=== PATIENT | female | born 1940 | race Caucasian/White ===

== ENCOUNTER 2017-05-27 06:00 | Emergency (ER) | payer MEDICARE ==
[2017-05-27 06:07] VITALS: BP 134/63; PULSE 62; RESP 18; TEMP 97
--- NOTE | 2017-05-27 06:27 | ED ---
General Adult HPI - General Chief complaint: ENT Stated complaint: ENT/Cough Time Seen by Provider: 05/27/17 06:17 Source: patient, RN notes reviewed Mode of arrival: ambulatory Limitations: no limitations - History of Present Illness Initial comments: Patient is a pleasant 76-year-old female presenting to the emergency department with congestion and cough. Symptoms have been present for close to week. Patient has nasal congestion and occasional drainage. Patient has had cough. No difficulty breathing. Patient does have sore throat. Patient has had some drainage from the left eye and noticed redness. No eye pain or visual change. - Related Data Home Medications Medication Instructions Recorded Confirmed Cranberry Fruit Extract [Cranberry] 1,000 mg PO DAILY 04/12/16 05/27/17 DULoxetine HCL [Cymbalta] 60 mg PO DAILY 04/12/16 05/27/17 Docusate [Colace] 100 mg PO DAILY PRN 04/12/16 05/27/17 Flaxseed Oil [[place]-3 Flaxseed Oil] 1,000 mg PO BID 04/12/16 05/27/17 Omeprazole [PriLOSEC] 20 mg PO BID 04/12/16 05/27/17 Pravastatin Sodium [Pravachol] 20 mg PO DAILY 04/12/16 05/27/17 lamoTRIgine [LaMICtal] 25 mg PO BID 04/12/16 05/27/17 Ascorbic Acid [Vitamin C] 500 mg PO DAILY 05/19/16 05/27/17 Biotin 5 mg PO BID 05/19/16 05/27/17 Calcium Carbonate/Vitamin D3 1 tab PO BID 05/19/16 05/27/17 [Calcium 600-Vit D3 400 Caplet] Cetirizine HCl [Zyrtec] 10 mg PO DAILY 05/19/16 05/27/17 Green Tea 500mg Capsule 500 mg PO DAILY 05/19/16 05/27/17 LORazepam [Ativan] 0.5 mg PO HS PRN 05/19/16 05/27/17 Levothyroxine Sodium 50 mcg PO DAILY 05/19/16 05/27/17 Melatonin 5 mg PO HS 05/19/16 05/27/17 Methylcellulose 500mg Tab(Citrucel) 500 - 1,000 mg PO DAILY PRN 05/19/16 Nitroglycerin Sl Tabs [Nitrostat] 0.4 mg PO Q5M PRN MDD 0.12 MG 05/19/16 Vitamin B Complex 1 cap PO DAILY 05/19/16 05/27/17 Vitamin E 200 unit PO DAILY 05/19/16 05/27/17 Previous Rx's Medication Instructions Recorded Aspirin 325 mg PO DAILY #30 tab 04/20/16 Furosemide [Lasix] 20 mg PO DAILY #30 tab 04/20/16 Lisinopril [Zestril] 10 mg PO DAILY #30 tab 04/20/16 Metoprolol Tartrate [Lopressor] 25 mg PO BID #60 tab 04/20/16 Acetaminophen Tab [Tylenol] 650 mg PO Q6HR PRN #0 tab 05/21/16 Azithromycin [Zithromax Z-pack] 250 mg PO DIRECTED #6 tab 05/27/17 Tobramycin [Tobrex 0.3% Ophth Soln] 1 drops LEFT EYE QID #10 ml 05/27/17 Allergies Allergy/AdvReac Type Severity Reaction Status Date / Time morphine AdvReac Chest Pain Verified 05/20/16 02:37 Review of Systems ROS Statement: Those systems with pertinent positive or pertinent negative responses have been documented in the HPI. ROS Other: All systems not noted in ROS Statement are negative. Constitutional: Denies: fever Eyes: Reports: eye discharge. Denies: eye pain ENT: Reports: throat pain. Denies: ear pain Respiratory: Reports: cough. Denies: dyspnea Cardiovascular: Denies: chest pain Endocrine: Denies: fatigue Gastrointestinal: Denies: abdominal pain Genitourinary: Denies: dysuria Musculoskeletal: Denies: back pain Skin: Denies: rash Neurological: Denies: weakness Past Medical History Past Medical History: Coronary Artery Disease (CAD), CVA/TIA, GERD/Reflux, Hypertension Additional Past Medical History / Comment(s): Chronic constipation, chronic anxiety, depression, tremors, GI reflux, seizure disorder, hypertension, hyperlipidemia History of Any Multi-Drug Resistant Organisms: None Reported Past Surgical History: Cholecystectomy, Heart Catheterization, Hysterectomy, Tonsillectomy, Tubal Ligation Additional Past Surgical History / Comment(s): Thyroidectomy Past Anesthesia/Blood Transfusion Reactions: No Reported Reaction Past Psychological History: Anxiety, Depression Smoking Status: Former smoker Past Alcohol Use History: None Reported Past Drug Use History: None Reported General Exam Limitations: no limitations General appearance: alert, in no apparent distress Head exam: Present: atraumatic Eye exam: Present: PERRL, EOMI, conjunctival injection ENT exam: Present: normal oropharynx, other (Tenderness over the frontal, ethmoid, and maxillary sinuses) Neck exam: Present: lymphadenopathy. Absent: tenderness, meningismus Respiratory exam: Present: normal lung sounds bilaterally Cardiovascular Exam: Present: regular rate, normal rhythm GI/Abdominal exam: Present: soft. Absent: tenderness Extremities exam: Present: normal inspection. Absent: pedal edema, calf tenderness Neurological exam: Present: alert Psychiatric exam: Present: normal affect, normal mood Skin exam: Present: normal color Course Vital Signs 05/27/17 06:03 Temperature 97 F L Pulse Rate 62 Respiratory 18 Rate Blood Pressure 134/63 O2 Sat by Pulse 100 Oximetry Disposition Clinical Impression: Sinusitis Disposition: HOME SELF-CARE Condition: Stable Instructions: Sinusitis (ED) Additional Instructions: Please follow-up with your primary care physician in the next couple days for recheck. Return for eye pain, visual changes, difficulty breathing, worsening symptoms or other concerns. Prescriptions: Azithromycin [Zithromax Z-pack] 250 mg PO DIRECTED #6 tab Tobramycin [Tobrex 0.3% Ophth Soln] 1 drops LEFT EYE QID #10 ml Referrals: Trung Mccormack MD [Primary Care Provider] - 1-2 days Time of Disposition: 06:26
== END 2017-05-27 06:30 | disposition home or self-care (01) ==
LOC: EC 06:00
DX: J32.9 Chronic sinusitis, unspecified (principal); R59.0 Localized enlarged lymph nodes; E78.5 Hyperlipidemia, unspecified; I10 Essential (primary) hypertension; K21.9 Gastro-esophageal reflux disease without esophagitis; G43.909 Migraine, unspecified, not intractable, without status migrainosus; F32.9 Major depressive disorder, single episode, unspecified; F41.9 Anxiety disorder, unspecified; Z87.891 Personal history of nicotine dependence; Z79.899 Other long term (current) drug therapy; Z88.5 Allergy status to narcotic agent
CPT/HCPCS: 99283

== ENCOUNTER 2017-11-29 16:40 | Observation (INO) | payer MEDICARE ==
[2017-11-29 17:29] VITALS: RESP 16
[2017-11-29] MEDS ORDERED: NITROGLYCERIN SL TABS 0.4 MG TAB SUBLINGUAL PRN (17:31)
[2017-11-29] MEDS ORDERED: DOCUSATE 100 MG CAP PO PRN (18:35)
[2017-11-29] MEDS ORDERED: ONDANSETRON 4 MG TAB PO PRN (18:35)
[2017-11-29] MEDS ORDERED: CLOTRIMAZOLE 1% CREAM 15 GM TUBE TOPICAL PRN (18:35)
[2017-11-29 18:50] LABS: Albumin 4.1 g/dL (3.5-5.0); Calcium 9.8 mg/dL (8.4-10.2); Total Bilirubin 0.3 mg/dL (0.2-1.3); Total Protein 6.8 g/dL (6.3-8.2)
[2017-11-29 18:51] LABS: Potassium 4.1 mmol/L (3.5-5.1)
[2017-11-29 18:55] LABS: Creatine Kinase 43 U/L (30-135)
[2017-11-29 19:08] LABS: Creatine Kinase MB 0.6 ng/mL (0.0-2.4); Troponin I <0.012 ng/mL (0.000-0.034)
[2017-11-29] MEDS ORDERED: RX INFO: IV CONTRAST WAS GIVEN 1 EACH MISC MISCELLANE PRN (19:36)
--- NOTE | 2017-11-29 19:45 | XR ---
EXAMINATION TYPE: XR chest 2V DATE OF EXAM: 11/29/2017 COMPARISON: 05/19/2016 HISTORY: Chest pain TECHNIQUE: Frontal and lateral views of the chest are obtained. FINDINGS: There is no heart failure nor confluent pneumonic infiltrate. There are chest leads. Thora cic aorta is atheromatous. There is no pleural effusion. There is mild coarsening of interstitial mar kings. IMPRESSION: Inspiration is decreased compared to old exam. There is probably minimal pulmonary fibro sis. No heart failure.
--- NOTE | 2017-11-29 20:59 | CT ---
EXAMINATION TYPE: CT angio chest DATE OF EXAM: 11/29/2017 8:40 PM COMPARISON: NONE HISTORY: SOB and elevated D-dimer CT DLP: 595 mGycm Automated exposure control for dose reduction was used. CONTRAST: CTA scan of the thorax is performed with IV Contrast, patient injected with 100ml mL of Omnipaque 350 , pulmonary embolism protocol. There are 3-D post processed images.. FINDINGS: There is some pleural thickening at the lung apices with calcification. There is no evidence of a pul monary mass. Heart appears enlarged. There is no evidence of aortic aneurysm or dissection. There is normal contrast opacification of the pulmonary arteries. I see no filling defects. There are a few mediastinal and bronchial lymph nodes that measure up to 1 cm. The bony thorax is intact. IMPRESSION: NO EVIDENCE OF PULMONARY EMBOLISM. CARDIOMEGALY. APICAL PLEURAL AND PULMONARY SCARRING.
[2017-11-29] MEDS ORDERED: NON-FORMULARY DRUG (Flaxseed Oil [Omega-3 Flaxseed Oil] 1,000 MG) PO SCH (21:00)
[2017-11-29] MEDS ORDERED: MELATONIN 5 MG TABLET PO SCH (21:00)
[2017-11-29] MEDS ORDERED: TEMAZEPAM 15 MG CAP PO SCH (21:00)
[2017-11-29] MEDS: SODIUM CHLORIDE 0.9% 1,000 ML IV SCH (22:04)
[2017-11-29] MEDS: CALCIUM CARB-VIT D 500MG-200UN 1 EACH TAB PO SCH (22:05)
[2017-11-29] MEDS: PANTOPRAZOLE 40 MG TABLET PO SCH (22:06)
[2017-11-29] MEDS: DULoxetine HCL 30 MG CAPSULE.DR PO SCH (22:06)
[2017-11-29] MEDS ORDERED: LISINOPRIL 5 MG TAB PO ONE (22:16)
[2017-11-29] MEDS ORDERED: FUROSEMIDE 20 MG TAB PO ONE (22:18)
[2017-11-30 01:22] LABS: Creatine Kinase 55 U/L (30-135)
[2017-11-30 01:35] LABS: Creatine Kinase MB 0.7 ng/mL (0.0-2.4); Troponin I <0.012 ng/mL (0.000-0.034)
[2017-11-30] MEDS ORDERED: LEVOTHYROXINE 50 MCG TAB PO SCH (06:30)
[2017-11-30 07:35] LABS: Cholesterol 158 mg/dL (<200); HDL Cholesterol 47 mg/dL (40-60); LDL Cholesterol,Calculated 95 mg/dL (0-99); Triglycerides 81 mg/dL (<150)
[2017-11-30] MEDS: SODIUM CHLORIDE 0.9% 1,000 ML IV SCH (07:38)
[2017-11-30] MEDS ORDERED: VITAMIN E (DL,TOCOPHERYL ACET) 400 UNIT CAP PO SCH (09:00)
[2017-11-30] MEDS ORDERED: FUROSEMIDE 20 MG TAB PO SCH (09:00)
[2017-11-30] MEDS ORDERED: B COMPLEX-VIT C-VIT E-ZINC 1 EACH TAB PO SCH (09:00)
[2017-11-30] MEDS ORDERED: VITAMIN A 10,000 UNIT CAPSULE PO SCH (09:00)
[2017-11-30] MEDS ORDERED: ASPIRIN 325 MG TAB PO SCH (09:00)
[2017-11-30] MEDS ORDERED: ASCORBIC ACID 500 MG TAB PO SCH (09:00)
[2017-11-30] MEDS ORDERED: LISINOPRIL 5 MG TAB PO SCH (09:00)
--- NOTE | 2017-11-30 09:43 | US ---
EXAMINATION TYPE: US venous Doppler duplex LE DATE OF EXAM: 11/30/2017 8:59 AM COMPARISON: CT angio chest CLINICAL HISTORY: R/O DVT; Varicose Veins noted and patient c/o right lower leg pain. SIDE PERFORMED: Bilateral TECHNIQUE: The lower extremity deep venous system is examined utilizing real time linear array sonog ramírez with graded compression, Doppler sonography and color-flow sonography. VESSELS IMAGED: Common Femoral Vein Deep Femoral Vein Greater Saphenous Vein * Femoral Vein Popliteal Vein Small Saphenous Vein * Proximal Calf Veins (* superficial vessels) Right Leg: Negative for DVT Left Leg: Negative for DVT IMPRESSION: 1. Lower extremities are negative for deep venous thrombosis.
[2017-11-30 10:02] LABS: Glucose,Whole Blood 104 mg/dL (75-99)
[2017-11-30] MEDS ORDERED: AMINOPHYLLINE 500 MG/20 ML VIAL IV PRN (11:51)
[2017-11-30] MEDS ORDERED: REGADENOSON 0.4 MG/5 ML SYRINGE IV ONE (11:51)
--- NOTE | 2017-11-30 13:07 | ECHOF ---
Referral Reason:sob MEASUREMENTS -------- HEIGHT: 162.6 cm WEIGHT: 77.1 kg BP: 117/63 IVSd: 0.8 cm (0.6 - 1.1) LVIDd: 3.5 cm (3.9 - 5.3) LVPWd: 1.1 cm (0.6 - 1.1) IVSs: 1.6 cm LVIDs: 1.7 cm LVPWs: 1.4 cm LAESV Index (A-L): 41.28 ml/m Ao Diam: 3.2 cm (2.0 - 3.7) AV Cusp: 1.9 cm (1.5 - 2.6) LA Diam: 3.6 cm (2.7 - 3.8) MV EXCURSION: 10.412 mm (> 18.000) MV EF SLOPE: 53 mm/s (70 - 150) EPSS: 0.5 cm MV E Emilio: 0.84 m/s MV DecT: 242 ms MV A Emilio: 0.65 m/s MV E/A Ratio: 1.29 RAP: 5.00 mmHg RVSP: 10.65 mmHg FINDINGS -------- Sinus rhythm. This was a technically good study. The left ventricular size is normal. Left ventricular wall thickness is normal. Overall left vent ricular systolic function is normal with, an EF between 55 - 60 %. The right ventricle is normal in size and function. LA is severely dilated >40 ml/m2 The right atrium is normal in size. The aortic valve is trileaflet and appears structurally normal. Moderate mitral regurgitation is present. Mild tricuspid regurgitation present. The right ventricular systolic pressure, as measured by Doppl er, is 10.65mmHg. Pulmonic valve appears structurally normal. The aortic root, ascending aorta and aortic arch are normal. The pericardium is normal. CONCLUSIONS -------- 1. Sinus rhythm. 2. This was a technically good study. 3. The left ventricular size is normal. 4. Left ventricular wall thickness is normal. 5. Overall left ventricular systolic function is normal with, an EF between 55 - 60 %. 6. The right ventricle is normal in size and function. 7. LA is severely dilated >40 ml/m2 8. The right atrium is normal in size. 9. The aortic valve is trileaflet and appears structurally normal. 10. Moderate mitral regurgitation is present. 11. Mild tricuspid regurgitation present. 12. The right ventricular systolic pressure, as measured by Doppler, is 10.65mmHg. 13. Pulmonic valve appears structurally normal. 14. The aortic root, ascending aorta and aortic arch are normal. 15. The pericardium is normal. [employer]ASTEWATER TREATMENT OPERATOR: Neha Gardner RDCS
--- NOTE | 2017-11-30 13:23 | P.CRDCN ---
History of Present Illness Consult date: 11/30/17 History of present illness: Mrs. Araya is a pleasant 77-year-old female past medical history significant for mild non-obstructive coronary artery disease per catheterization 03/2016, hypertension, paroxysmal atrial fibrillation, anxiety, former tobacco use and history of pulmonary edema with hypoxic respiratory failure and systolic heart failure EF 35-40% in 03/2016. Most recent echocardiogram reveals improved LV systolic function with EF 55-60%, mild aortic valve sclerosis, mild MR, mild TR and no evidence of PH. This was done 2015, [address] Leung in the office. We have been asked to see her in consultation for complaints of pain under the left breast and increased shortness of breath. She states she was at home yesterday morning when she started feeling that her sugar was low. She states she suffers from hypoglycemia frequently and her symptoms are usually dizziness, diaphoresis, generalized weakness and shakiness and confusion. She drank some orange juice and went to see her primary care physician. He advised her to come to ED for evaluation secondary to increased shortness of breath. At the time of my exam she is seen resting comfortably in bed in no acute distress. She continues to have pain under the left breast, it actually seems to be more the upper abdomen region. The area is tender on palpation as well. She says she suffers from frequent instances of constipation. She takes regular laxatives. Office records were reviewed, she had a recent 24-holter monitor that was unremarkable. EKG reveals sinus mechanism with first degree AVB with sinus arrhythmia. Chest xray was negative for an acute cardiopulmonary process with minimal pulmonary fibrosis and no heart failure. CTA was performed secondary to elevated d-dimer at 0.96 and was negative for PE. Laboratory data reviewed, Current cardiac medications include pravastatin 20mg daily, metroprolol 12.5 mg BID, lisinopril 5 mg daily, lasix 20 mg daily and aspirin 325 mg daily. Catheterization from 03/2016 revealed LM 20-30% mid disease; circumflex normal; LAD normal; RCA normal. Review of Systems At the time of my exam: CONSTITUTIONAL: Denies fever. Denies chills. EYES: Denies blurred vision. Denies vision changes. Denies eye pain. EARS, NOSE, MOUTH & THROAT: Denies headache. Denies sore throat. Denies ear pain. CARDIOVASCULAR: Denies chest pain. Denies shortness of breath. Denies orthopnea. Denies PND. Denies palpitations. RESPIRATORY: Denies cough. GASTROINTESTINAL: Complains of left upper quadrant abdominal pain. Denies diarrhea. Denies constipation. Denies nausea. Denies vomiting. MUSCULOSKELETAL: Denies myalgias. INTEGUMENTARY: Denies pruitis. Denies rash. NEUROLOGIC: Denies numbness. Denies tingling. Denies weakness. PSYCHIATRIC: Denies anxiety. Denies depression. ENDOCRINE: Denies fatigue. Denies weight change. Denies polydipsia. Denies polyurina. GENITOURINARY: Denies burning, hematuria or urgency with micturation. HEMATOLOGIC: Denies history of anemia. Denies bleeding. Past Medical History Past Medical History: Coronary Artery Disease (CAD), CVA/TIA, GERD/Reflux, Hypertension, Myocardial Infarction ([place]) Additional Past Medical History / Comment(s): rt side dominant. past stroke in 2009 left pt with some short term memory problems and pt stated"when she gets stressed the 4th/5th finger on rt hand tingle and 4th/5th toe rt foot tingle "Chronic constipation, chronic anxiety, depression, tremors, GI reflux, hypertension, hyperlipidemia,2016 mi"i was on life support for 10 days" Last Myocardial Infarction Date:: 2015 History of Any Multi-Drug Resistant Organisms: None Reported Past Surgical History: Cholecystectomy, Heart Catheterization, Hysterectomy, Tonsillectomy, Tubal Ligation Additional Past Surgical History / Comment(s): Thyroidectomy Past Anesthesia/Blood Transfusion Reactions: No Reported Reaction Smoking Status: Former smoker - Past Family History Father Family Medical History: Myocardial Infarction ([place]), Vascular Disorder Additional Family Medical History / Comment(s): depression. poor circulation, etoh Mother Additional Family Medical History / Comment(s): pacemaker Medications and Allergies Home Medications Medication Instructions Recorded Confirmed Type DULoxetine HCL [Cymbalta] 30 mg PO BID 04/12/16 11/29/17 History Docusate [Colace] 100 mg PO DAILY PRN 04/12/16 11/29/17 History Flaxseed Oil [[place]-3 Flaxseed Oil] 1,000 mg PO BID 04/12/16 11/29/17 History Omeprazole [PriLOSEC] 20 mg PO BID 04/12/16 11/29/17 History Pravastatin Sodium [Pravachol] 20 mg PO DAILY 04/12/16 11/29/17 History Aspirin 325 mg PO DAILY #30 tab 04/20/16 11/29/17 Rx Furosemide [Lasix] 20 mg PO DAILY #30 tab 04/20/16 11/29/17 Rx Ascorbic Acid [Vitamin C] 500 mg PO DAILY 05/19/16 11/29/17 History Calcium Carbonate/Vitamin D3 1 tab PO BID 05/19/16 11/29/17 History [Calcium 600-Vit D3 400 Caplet] Levothyroxine Sodium 50 mcg PO DAILY 05/19/16 11/29/17 History Melatonin 5 mg PO HS 05/19/16 11/29/17 History Nitroglycerin Sl Tabs [Nitrostat] 0.4 mg PO Q5M PRN MDD 0.12 MG 05/19/16 History Vitamin B Complex 1 cap PO DAILY 05/19/16 11/29/17 History Vitamin E 200 unit PO DAILY 05/19/16 11/29/17 History Chromium Picolinate 100 mcg PO BID 11/29/17 11/29/17 History Ciclopirox Olamine [Ciclopirox 1 applic TOPICAL DAILY PRN 11/29/17 11/29/17 History 0.77% Topical Susp.] Garcinia Cambogia 1 cap PO DAILY 11/29/17 11/29/17 History Garlic 1 tab PO DAILY 11/29/17 11/29/17 History Lisinopril [Zestril] 5 mg PO DAILY 11/29/17 11/29/17 History Metoprolol Tartrate [Lopressor] 12.5 mg PO BID 11/29/17 11/29/17 History Ondansetron HCl [Zofran] 4 mg PO TID PRN 11/29/17 11/29/17 History Temazepam [Restoril] 15 mg PO HS 11/29/17 11/29/17 History Vitamin A 8,000 unit PO DAILY 11/29/17 11/29/17 History Allergies Allergy/AdvReac Type Severity Reaction Status Date / Time morphine AdvReac Chest Pain Verified 05/20/16 02:37 Physical Exam Vitals: Vital Signs Temp Pulse Resp BP Pulse Ox 11/30/17 07:57 98 F 56 L 16 117/63 97 11/30/17 04:00 16 11/30/17 03:39 98.2 F 67 16 106/52 98 11/30/17 00:00 69 16 11/29/17 23:54 97.9 F 68 16 140/66 97 11/29/17 20:00 97.6 F 67 16 138/58 98 11/29/17 17:26 97.5 F L 64 16 142/68 98 Intake and Output 11/29/17 11/30/17 11/30/17 22:59 06:59 14:59 Intake Total 260 Balance 260 Intake: Oral 260 Other: # Voids 1 1 Weight 77.4 kg Blood pressure 117/63 heart rate 56 afebrile maintaining oxygen saturations on room air GENERAL: This is a 77-year-old female in no apparent distress at the time of my examination. HEENT: Head is atraumatic, normocephalic. Pupils are equal, round. Sclerae anicteric. Conjunctivae are clear. Mucous membranes of the mouth are moist. Neck is supple. There is no jugular venous distention. No carotid bruit is heard. LUNGS: Clear to auscultation no wheezes, rales or rhonchi. No chest wall tenderness is noted on palpation or with deep breathing. HEART: Regular rate and rhythm with systolic ejection murmur, no rubs or gallops. S1 and S2 heard. ABDOMEN: Soft, mildly tender left upper quadrant. Bowel sounds are heard. No organomegaly noted. EXTREMITIES: No evidence of peripheral edema and no calf tenderness noted. VASCULAR: Radial and dorsalis pedis pulses palpated, no evidence of clubbing. NEUROLOGIC: Patient is awake, alert and oriented x3. Results 11/29/17 18:07 Cardiac Enzymes 11/29/17 11/29/17 11/30/17 Range/Units 18:07 18:07 00:30 AST 23 (14-36) U/L CK-MB (CK-2) 0.6 0.7 (0.0-2.4) ng/mL Troponin I <0.012 <0.012 (0.000-0.034) ng/mL 11/30/17 Range/Units 06:50 AST (14-36) U/L CK-MB (CK-2) (0.0-2.4) ng/mL Troponin I <0.012 (0.000-0.034) ng/mL Lipids 11/30/17 Range/Units 06:50 Triglycerides 81 (<150) mg/dL Cholesterol 158 (<200) mg/dL HDL Cholesterol 47 (40-60) mg/dL Comprehensive Metabolic Panel 11/29/17 Range/Units 18:07 Sodium 142 (137-145) mmol/L Potassium 4.1 (3.5-5.1) mmol/L Chloride 102 (98-107) mmol/L Carbon Dioxide 30 (22-30) mmol/L BUN 23 H (7-17) mg/dL Creatinine 0.90 (0.52-1.04) mg/dL Glucose 98 (74-99) mg/dL Calcium 9.8 (8.4-10.2) mg/dL AST 23 (14-36) U/L ALT 39 (9-52) U/L Alkaline Phosphatase 77 (38-126) U/L Total Protein 6.8 (6.3-8.2) g/dL Albumin 4.1 (3.5-5.0) g/dL Current Medications Generic Name Dose Route Start Last Admin Trade Name Freq PRN Reason Stop Dose Admin Ascorbic Acid 500 mg 11/30/17 09:00 Vitamin C PO DAILY [facility] Aspirin 325 mg 11/30/17 09:00 Aspirin PO DAILY [facility] Calcium Carbonate 1 each 11/29/17 21:00 11/29/17 22:05 Oscal 500+D PO 1 each BID [facility] Administration Clotrimazole 1 applic 11/29/17 18:35 Lotrimin Cream TOPICAL DAILY PRN FUNGAL INFECTION Docusate Sodium 100 mg 11/29/17 18:35 Colace PO DAILY PRN Constipation Duloxetine HCl 30 mg 11/29/17 21:00 11/29/17 22:06 Cymbalta PO 30 mg BID [facility] Administration Furosemide 20 mg 11/30/17 09:00 Lasix PO DAILY [facility] Sodium Chloride 1,000 mls @ 100 mls/hr 11/29/17 19:45 11/30/17 07:38 Saline 0.9% IV Not Given .Q10H [facility] Levothyroxine Sodium 50 mcg 11/30/17 06:30 11/30/17 06:28 Synthroid PO 50 mcg DAILY@0630 [facility] Administration Lisinopril 5 mg 11/30/17 09:00 Zestril PO DAILY [facility] Melatonin 5 mg 11/29/17 21:00 11/29/17 23:58 Melatonin PO 5 mg HS [facility] Administration Miscellaneous Information 1 each 11/29/17 19:36 Rx Info: Iv Contrast Was Given MISCELLANE 12/01/17 19:37 DAILY PRN Per Protocol Nitroglycerin 0.4 mg 11/29/17 17:31 Nitrostat SUBLINGUAL Q5M PRN Chest Pain Ondansetron HCl 4 mg 11/29/17 18:35 Zofran PO TID PRN Nausea Pantoprazole Sodium 40 mg 11/29/17 19:30 11/29/17 22:06 Protonix PO 40 mg [id number] [facility] Administration Pravastatin Sodium 20 mg 11/30/17 21:00 Pravachol PO HS [facility] Temazepam 15 mg 11/29/17 21:00 11/29/17 23:58 Restoril PO 15 mg HS [facility] Administration Vitamin A 10,000 unit 11/30/17 09:00 Vitamin A PO DAILY [facility] Vitamin B Complex/Vit C/Vit E/Zinc 1 each 11/30/17 09:00 Z-Bec PO DAILY [facility] Vitamin E 400 unit 11/30/17 09:00 Vitamin E PO DAILY [facility] Intake and Output 11/29/17 11/30/17 11/30/17 22:59 06:59 14:59 Intake Total 260 Balance 260 Intake: Oral 260 Other: # Voids 1 1 Weight 77.4 kg 11/29/17 18:07 Assessment and Plan Assessment: ASSESSMENT 1. Chest pain, atypical. An acute coronary event has been ruled out with negative cardiac enzymes and no EKG evidence of ischemia. 2. Hypertension, controlled 3. History of CVA 4. Dyslipidemia 5. History of systolic heart failure, currently euvolemic with improved LV function on last echocardiogram 6. Anxiety PLAN Obtain 2D echocardiogram and doppler study to assess cardiac structure and function. Perform Lexiscan stress test to check for reversible cardiac ischemia. If above diagnostic testing is normal she is stable from a cardiac perspective. Follow-up with Dr. Leung in 2-3 weeks. Thank you kindly for this consultation. Nurse Practitioner note has been reviewed, I agree with a documented findings and plan of care. Patient was seen and examined.
--- NOTE | 2017-11-30 14:47 | NM ---
EXAMINATION TYPE: NM stress lexiscan cardiolite DATE OF EXAM: 11/30/2017 COMPARISON: NONE HISTORY: Chest pain TECHNIQUE: After the intravenous administration of 10.1 mCi Tc 99m Sestamibi - Cardiolite resting SP ECT images acquired 45 minutes post injection. The patient received 0.4mg Lexiscan, 25.1 mCi Tc 99m Sestamibi - Stress images obtained [address] injection FINDINGS: No fixed or reversible perfusion defects are evident. Wall motion is normal. The ejection fraction of 65% is normal. IMPRESSION: Normal stress myocardial study.
[2017-11-30 14:55] LABS: Basophils % (A) 0 %; Eosinophils # (A) 0.2 k/uL (0-0.7); Eosinophils % (A) 3 %; HCT 36.8 % (34.0-46.0); HGB 11.7 gm/dL (11.4-16.0); Lymphocytes # (A) 2.7 k/uL (1.0-4.8); Lymphocytes % (A) 40 %; MCH 28.2 pg (25.0-35.0); MCHC 31.8 g/dL (31.0-37.0); MCV 88.9 fL (80.0-100.0); Mean Platelet Volume 7.7; Monocytes # (A) 0.5 k/uL (0-1.0); Monocytes % (A) 7 %; Neutrophils # (A) 3.3 k/uL (1.3-7.7); Neutrophils % (A) 48 %; Platelet Count 254 k/uL (150-450); RBC 4.14 m/uL (3.80-5.40); RDW 13.3 % (11.5-15.5); WBC 6.9 k/uL (3.8-10.6)
--- NOTE | 2017-11-30 15:33 | P.HPIM ---
History of Present Illness H&P Date: 11/30/17 Chief Complaint: Shortness of breath This is a 77-year-old female with past medical history noted below who was placed in observation directly from my office yesterday with worsening shortness of breath. Patient was complaining of dyspnea and chest discomfort under her left breast. 12 leads EKG in the office showed no evidence of acute ischemic changes. I elected to put the patient in observation for further evaluation. She had an elevated d-dimer on presentation but computed tomography scan of the chest no evidence of PE. She also had bilateral lower extremity Doppler that was negative for DVT. Patient remained in normal sinus rhythm on telemetry monitoring. Troponin was negative. She was seen and evaluated by cardiology and underwent a stress test that was negative. Echocardiogram showed preserved ejection fraction of 55%. Patient was reassured. She will be discharged home in a stable condition. She will follow- up with me in the office in one week. 1. Chest pain, atypical in nature 2. History of nonobstructive coronary artery disease noted on left heart catheterization in 2016 3. Essential hypertension, blood pressure well-controlled 4. Hypothyroidism, maintained on Synthroid. TSH was normal 5. Underlying anxiety disorder Review of Systems Review of system: 14 points review of systems were obtained and were negative except to what were mentioned in the HPI. Past Medical History Past Medical History: Coronary Artery Disease (CAD), CVA/TIA, GERD/Reflux, Hypertension, Myocardial Infarction (PA) Additional Past Medical History / Comment(s): rt side dominant. past stroke in 2009 left pt with some short term memory problems and pt stated"when she gets stressed the 4th/5th finger on rt hand tingle and 4th/5th toe rt foot tingle "Chronic constipation, chronic anxiety, depression, tremors, GI reflux, hypertension, hyperlipidemia,2016 mi"i was on life support for 10 days" Last Myocardial Infarction Date:: 2016 History of Any Multi-Drug Resistant Organisms: None Reported Past Surgical History: Cholecystectomy, Heart Catheterization, Hysterectomy, Tonsillectomy, Tubal Ligation Additional Past Surgical History / Comment(s): Thyroidectomy Past Anesthesia/Blood Transfusion Reactions: No Reported Reaction Smoking Status: Former smoker - Past Family History Father Family Medical History: Myocardial Infarction (PA), Vascular Disorder Additional Family Medical History / Comment(s): depression. poor circulation, etoh Mother Additional Family Medical History / Comment(s): pacemaker Medications and Allergies Home Medications Medication Instructions Recorded Confirmed Type DULoxetine HCL [Cymbalta] 30 mg PO BID 04/12/16 11/29/17 History Docusate [Colace] 100 mg PO DAILY PRN 04/12/16 11/29/17 History Flaxseed Oil [[place]-3 Flaxseed Oil] 1,000 mg PO BID 04/12/16 11/29/17 History Omeprazole [PriLOSEC] 20 mg PO BID 04/12/16 11/29/17 History Pravastatin Sodium [Pravachol] 20 mg PO DAILY 04/12/16 11/29/17 History Aspirin 325 mg PO DAILY #30 tab 04/20/16 11/29/17 Rx Furosemide [Lasix] 20 mg PO DAILY #30 tab 04/20/16 11/29/17 Rx Ascorbic Acid [Vitamin C] 500 mg PO DAILY 05/19/16 11/29/17 History Calcium Carbonate/Vitamin D3 1 tab PO BID 05/19/16 11/29/17 History [Calcium 600-Vit D3 400 Caplet] Levothyroxine Sodium 50 mcg PO DAILY 05/19/16 11/29/17 History Melatonin 5 mg PO HS 05/19/16 11/29/17 History Nitroglycerin Sl Tabs [Nitrostat] 0.4 mg PO Q5M PRN MDD 0.12 MG 05/19/16 History Vitamin B Complex 1 cap PO DAILY 05/19/16 11/29/17 History Vitamin E 200 unit PO DAILY 05/19/16 11/29/17 History Chromium Picolinate 100 mcg PO BID 11/29/17 11/29/17 History Ciclopirox Olamine [Ciclopirox 1 applic TOPICAL DAILY PRN 11/29/17 11/29/17 History 0.77% Topical Susp.] Garcinia Cambogia 1 cap PO DAILY 11/29/17 11/29/17 History Garlic 1 tab PO DAILY 11/29/17 11/29/17 History Lisinopril [Zestril] 5 mg PO DAILY 11/29/17 11/29/17 History Metoprolol Tartrate [Lopressor] 12.5 mg PO BID 11/29/17 11/29/17 History Ondansetron HCl [Zofran] 4 mg PO TID PRN 11/29/17 11/29/17 History Temazepam [Restoril] 15 mg PO HS 11/29/17 11/29/17 History Vitamin A 8,000 unit PO DAILY 11/29/17 11/29/17 History Allergies Allergy/AdvReac Type Severity Reaction Status Date / Time morphine AdvReac Chest Pain Verified 05/20/16 02:37 Physical Exam Vitals: Vital Signs Temp Pulse Resp BP Pulse Ox 11/30/17 11:39 97.6 F 58 L 16 113/62 96 11/30/17 07:57 98 F 56 L 16 117/63 97 11/30/17 04:00 16 11/30/17 03:39 98.2 F 67 16 106/52 98 11/30/17 00:00 69 16 11/29/17 23:54 97.9 F 68 16 140/66 97 11/29/17 20:00 97.6 F 67 16 138/58 98 11/29/17 17:26 97.5 F L 64 16 142/68 98 Intake and Output 11/30/17 11/30/17 11/30/17 06:59 14:59 22:59 Other: # Voids 1 2 Weight 77.111 kg General: The patient is awake and alert, in no distress Eye: there is normal conjunctiva bilaterally. Neck: The neck is supple, there is no JVD. Cardiovascular: Normal S1-S2, no S3-S4, no murmurs. Respiratory: Lungs clear to auscultation bilaterally Gastrointestinal: Abdomen is soft, nontender Musculoskeletal: There is no pedal edema. Neurological:. Speech is normal. Skin: Skin is warm and dry Results CBC & Chem 7: 11/30/17 06:50 11/29/17 18:07 Labs: Abnormal Lab Results - Last 24 Hours (Table) 11/29/17 11/29/17 11/30/17 Range/Units 18:07 18:07 09:58 D-Dimer 0.96 H (<0.60) mg/L FEU BUN 23 H (7-17) mg/dL POC Glucose (mg/dL) 104 H (75-99) mg/dL Thrombosis Risk Factor Assmnt - Choose All That Apply Any of the Below Risk Factors Present?: Yes Each Factor Represents 1 point: Obesity (BMI >25) Other Risk Factors: Yes Each Risk Factor Represents 3 Points: Age 75 years or older Other congenital or acquired thrombophilia - If yes, enter type in comment: No Thrombosis Risk Factor Assessment Total Risk Factor Score: 4 Thrombosis Risk Factor Assessment Level: Moderate Risk Assessment and Plan Assessment: This is a 77-year-old female with past medical history noted below who was placed in observation directly from my office yesterday with worsening shortness of breath. Patient was complaining of dyspnea and chest discomfort under her left breast. 12 leads EKG in the office showed no evidence of acute ischemic changes. I elected to put the patient in observation for further evaluation. She had an elevated d-dimer on presentation but computed tomography scan of the chest no evidence of PE. She also had bilateral lower extremity Doppler that was negative for DVT. Patient remained in normal sinus rhythm on telemetry monitoring. Troponin was negative. She was seen and evaluated by cardiology and underwent a stress test that was negative. Echocardiogram showed preserved ejection fraction of 55%. Patient was reassured. She will be discharged home in a stable condition. She will follow- up with me in the office in one week. 1. Chest pain, atypical in nature 2. History of nonobstructive coronary artery disease noted on left heart catheterization in 2016 3. Essential hypertension, blood pressure well-controlled 4. Hypothyroidism, maintained on Synthroid. TSH was normal 5. Underlying anxiety disorder
[2017-11-30 15:34] VITALS: BP 112/60; PULSE 78; TEMP 97.7
--- NOTE | 2017-11-30 15:36 | P.DS ---
Providers Date of admission: 11/29/17 16:55 Expected date of discharge: 11/30/17 Attending physician: Trung Mccormack Consults: 11/29/17 17:32 Consult Physician Routine Consulting Provider: Jasmin Grover Consult Reason/Comments: chest pain Do you want consulting provider notified?: Yes Primary care physician: [facility] Course: This is a 77-year-old female with past medical history noted below who was placed in observation directly from my office yesterday with worsening shortness of breath. Patient was complaining of dyspnea and chest discomfort under her left breast. 12 leads EKG in the office showed no evidence of acute ischemic changes. I elected to put the patient in observation for further evaluation. She had an elevated d-dimer on presentation but computed tomography scan of the chest no evidence of PE. She also had bilateral lower extremity Doppler that was negative for DVT. Patient remained in normal sinus rhythm on telemetry monitoring. Troponin was negative. She was seen and evaluated by cardiology and underwent a stress test that was negative. Echocardiogram showed preserved ejection fraction of 55%. Patient was reassured. She will be discharged home in a stable condition. She will follow- up with me in the office in one week. 1. Chest pain, atypical in nature 2. History of nonobstructive coronary artery disease noted on left heart catheterization in 2016 3. Essential hypertension, blood pressure well-controlled 4. Hypothyroidism, maintained on Synthroid. TSH was normal 5. Underlying anxiety disorder Plan - Discharge Summary Discharge Rx Participant: Yes New Discharge Prescriptions: Continue Pravastatin Sodium [Pravachol] 20 mg PO DAILY DULoxetine HCL [Cymbalta] 30 mg PO BID Furosemide [Lasix] 20 mg PO DAILY #30 tab Vitamin B Complex 1 cap PO DAILY Ascorbic Acid [Vitamin C] 500 mg PO DAILY Calcium Carbonate/Vitamin D3 [Calcium 600-Vit D3 400 Caplet] 1 tab PO BID Nitroglycerin Sl Tabs [Nitrostat] 0.4 mg PO Q5M PRN MDD 0.12 MG PRN Reason: Chest Pain Levothyroxine Sodium 50 mcg PO DAILY Metoprolol Tartrate [Lopressor] 12.5 mg PO BID Lisinopril [Zestril] 5 mg PO DAILY Temazepam [Restoril] 15 mg PO HS Discontinued Docusate [Colace] 100 mg PO DAILY PRN PRN Reason: Constipation Omeprazole [PriLOSEC] 20 mg PO BID Flaxseed Oil [[place]-3 Flaxseed Oil] 1,000 mg PO BID Aspirin 325 mg PO DAILY #30 tab Vitamin E 200 unit PO DAILY Melatonin 5 mg PO HS Vitamin A 8,000 unit PO DAILY Garlic 1 tab PO DAILY Chromium Picolinate 100 mcg PO BID Ondansetron HCl [Zofran] 4 mg PO TID PRN PRN Reason: Nausea Ciclopirox Olamine [Ciclopirox 0.77% Topical Susp.] 1 applic TOPICAL DAILY PRN PRN Reason: FUNGAL INFECTION Lula Spicerogia 1 cap PO DAILY Discharge Medication List DULoxetine HCL [Cymbalta] 30 mg PO BID 04/12/16 [History] Pravastatin Sodium [Pravachol] 20 mg PO DAILY 04/12/16 [History] Furosemide [Lasix] 20 mg PO DAILY #30 tab 04/20/16 [Rx] Ascorbic Acid [Vitamin C] 500 mg PO DAILY 05/19/16 [History] Calcium Carbonate/Vitamin D3 [Calcium 600-Vit D3 400 Caplet] 1 tab PO BID [History] Levothyroxine Sodium 50 mcg PO DAILY 05/19/16 [History] Nitroglycerin Sl Tabs [Nitrostat] 0.4 mg PO Q5M PRN MDD 0.12 MG 05/19/16 [ History] Vitamin B Complex 1 cap PO DAILY 05/19/16 [History] Lisinopril [Zestril] 5 mg PO DAILY 11/29/17 [History] Metoprolol Tartrate [Lopressor] 12.5 mg PO BID 11/29/17 [History] Temazepam [Restoril] 15 mg PO HS 11/29/17 [History] Follow up Appointment(s)/Referral(s): Trung Mccormack MD [Primary Care Provider] - 1 Week Patient Instructions/Handouts: Chest Pain (DC) Discharge Disposition: HOME SELF-CARE
[2017-11-30] MEDS: DULoxetine HCL 30 MG CAPSULE.DR PO SCH (15:45)
[2017-11-30] MEDS: PANTOPRAZOLE 40 MG TABLET PO SCH (15:46)
[2017-11-30] MEDS: CALCIUM CARB-VIT D 500MG-200UN 1 EACH TAB PO SCH (15:46)
--- NOTE | 2017-11-30 17:39 | XR ---
EXAMINATION TYPE: XR knee complete RT DATE OF EXAM: 11/30/2017 COMPARISON: NONE HISTORY: Knee pain TECHNIQUE: 3 views FINDINGS: I see no fracture nor dislocation. There is spurring on the patella. There is some narrowin g of patellofemoral joint space. There is no sign of joint effusion. 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 No fracture.
[2017-11-30] MEDS ORDERED: PRAVASTATIN SODIUM 20 MG TAB PO SCH (21:00)
--- NOTE | 2017-12-01 12:24 | P.STRESS ---
- Stress Test Note Stress Test Results/Findings: Exam Performed: NM stress lexiscan cardiolite Exam Date: 11/30/17 Reason for Exam: CHEST PAIN Height: 5 ft 4 in Weight: 77.111 kg Protocol: LEXISCAN Stage: NA Duration of Exercise: NA Resting Heart Rate: 58 Resting Blood Pressure: 129/65 Maximum Achieved Heart Rate: 87 Maximum Achieved Blood Pressure: 164/56 85% PMHR: 122 100% PMHR: 143 METS: NA Technologist Comment: Stress Test Results/Findings: This is a 77-year-old female with history of hypertension, previous CVA, and hypercholesteremia being evaluated for symptoms of chest pain and shortness of breath. Baseline EKG showed sinus rhythm with normal [place] interval, QRS duration. A standard dose of Lexiscan was infused. EKGs taken during and after infusion did not reveal any changes to suggest ischemia. Final impression #1. Negative Lexiscan stress test #2. Report on the nuclear images to be given by the radiologist
--- NOTE | 2017-12-04 17:48 | EST ---
- Stress Test Note Stress Test Results/Findings: Exam Performed: NM stress lexiscan cardiolite Exam Date: 11/30/17 Reason for Exam: CHEST PAIN Height: 5 ft 4 in Weight: 77.111 kg Protocol: LEXISCAN Stage: NA Duration of Exercise: NA Resting Heart Rate: 58 Resting Blood Pressure: 129/65 Maximum Achieved Heart Rate: 87 Maximum Achieved Blood Pressure: 164/56 85% PMHR: 122 100% PMHR: 143 METS: NA Technologist Comment: Stress Test Results/Findings: This is a 77-year-old female with history of hypertension, previous CVA, and hypercholesteremia being evaluated for symptoms of chest pain and shortness of breath. Baseline EKG showed sinus rhythm with normal [place] interval, QRS duration. A standard dose of Lexiscan was infused. EKGs taken during and after infusion did not reveal any changes to suggest ischemia. Final impression #1. Negative Lexiscan stress test #2. Report on the nuclear images to be given by the radiologist IRIS
== END 2017-11-30 18:29 | disposition home or self-care (01) ==
LOC: 3OBS 16:55
PROVIDERS: ADMIT Internal Medicine; ATTEND Internal Medicine
DX: R07.89 Other chest pain (principal); R06.02 Shortness of breath; R79.89 Other specified abnormal findings of blood chemistry; I11.0 Hypertensive heart disease with heart failure; I50.20 Unspecified systolic (congestive) heart failure; I25.10 Atherosclerotic heart disease of native coronary artery without angina pectoris; K21.9 Gastro-esophageal reflux disease without esophagitis; E78.5 Hyperlipidemia, unspecified; F41.9 Anxiety disorder, unspecified; E03.9 Hypothyroidism, unspecified; E16.2 Hypoglycemia, unspecified; K59.00 Constipation, unspecified; I48.0 Paroxysmal atrial fibrillation; E66.9 Obesity, unspecified; Z68.29 Body mass index [BMI] 29.0-29.9, adult; Z87.891 Personal history of nicotine dependence; Z79.82 Long term (current) use of aspirin; Z79.899 Other long term (current) drug therapy; Z88.5 Allergy status to narcotic agent; Z86.73 Personal history of transient ischemic attack (TIA), and cerebral infarction without residual deficits; I25.2 Old myocardial infarction; Z82.49 Family history of ischemic heart disease and other diseases of the circulatory system; Z81.8 Family history of other mental and behavioral disorders; Z81.1 Family history of alcohol abuse and dependence
CPT/HCPCS: 93017; 93306; 85379; 80061; 80053; 82550 ×2; 82553 ×2; 84484 ×2; 85025; 73562; 71046; 93970; 71275; 78452; G0378 ×2; G0379; A9500; Q9967; J2785

== ENCOUNTER → 2018-08-30 | Outpatient (CLI) | payer MEDICARE ==
--- NOTE | 2018-08-31 11:16 | MM ---
Reason for exam: screening (asymptomatic). Last mammogram was performed 2 years and 3 months ago. History: Patient is postmenopausal. Family history of breast cancer in paternal aunt. Physical Findings: A clinical breast exam by your physician is recommended on an annual basis and results should be correlated with mammographic findings. MG 3D Screening Mammo W/Cad Bilateral CC and MLO view(s) were taken. Prior study comparison: June 07, 2016, bilateral MG 3d screening mammo w/cad. December 14, 2012, bilateral digital screening mammo w/CAD. The breast tissue is heterogeneously dense. This may lower the sensitivity of mammography. No significant changes when compared with prior studies. ASSESSMENT: Benign, BI-RAD 2 RECOMMENDATION: Routine screening mammogram of both breasts in 1 year.
--- NOTE | 2018-08-31 15:45 | BD ---
EXAMINATION TYPE: Axial Bone Density DATE OF EXAM: 08/30/2018 COMPARISON: NONE CLINICAL HISTORY: Height: 61 Weight: 177.8 FRAX RISK QUESTIONS: Alcohol (3 or more units per day): no Family History (Parent hip fracture): no Glucocorticoids (More than 3mos): no (Ex: prednisone, prednisolone, methylprednisolone, dexamethasone, and hydrocortisone). History of Fracture in Adulthood: no Secondary Osteoporosis: 1. Type 1 Diabetes: no 2. Hyperthyroidism: no 3. Menopause before 45: no 4. Malnutrition: no 5. Chronic liver disease: no Rheumatoid Arthritis: no Current Tobacco Use: no RISK FACTORS HISTORY OF: Family History of Osteoporosis: yes Active: yes Diet low in dairy products/other sources of calcium: yes Postmenopausal woman: around age 58 Lost more than 2 inches in height since high school: no MEDICATIONS: vitamins, blood pressure, heart meds, cholesterol meds Thyroid Medications: synthroid How Lon years Additional History: EXAM MEASUREMENTS: Bone mineral densitometry was performed using the [employer] System. Bone mineral density as measured about the Lumbar spine is: ----- L1-L4(G/cm2): 1032 T Score Values are as follows: ----- L2: -1.7 ----- L3: -1.8 ----- L4: -0.2 ----- L1-L4: -1.2 Bone mineral density has: increased 3.9 % since study of: 06.07.2016 Bone mineral density about the R hip (g/cm2): 0.733 Bone mineral density about the L hip (g/cm2): 0.765 T Score values are as follows: -----R Neck: -2.2 -----L Neck: -2.0 -----R Total: -2.0 -----L Total: -1.6 Bone mineral density has: increased 2.0 % since study of: 06.07.2016 IMPRESSION: Osteopenia (T Score between -2.5 and -1). There is slightly increased risk of fracture and the patient may be considered for treatment. Re-Screen 2-5 years. NOTE: T-SCORE=SD OF THE YOUNG ADULT MEAN.
== END | disposition home or self-care (01) ==
LOC: RADMAMWWP 14:49
PROVIDERS: ATTEND Internal Medicine
DX: Z12.31 Encounter for screening mammogram for malignant neoplasm of breast (principal); M85.88 Other specified disorders of bone density and structure, other site; N95.1 Menopausal and female climacteric states
CPT/HCPCS: 77063; 77067; 77080

== ENCOUNTER 2019-07-29 11:40 | Inpatient (IN) | payer MEDICARE ==
--- NOTE | 2019-07-29 12:11 | ED ---
Altered Mental Status HPI - General Chief Complaint: Altered Mental Status Stated Complaint: Altered Mental Status Time Seen by Provider: 07/29/19 11:40 Source: patient, EMS, RN notes reviewed, old records reviewed Mode of arrival: EMS Limitations: no limitations - History of Present Illness Initial Comments: This is a 70-year-old female with a recent diagnosis of UTI who is currently being treated for who is brought in by EMS today because of intermittent confusion. She has she cannot recall exactly why she is here today. She denies any fevers chills nausea vomiting or sweats she states she feels that this admission if she has a full bladder she also states that she's had knee surgery in April 23 of this year and his been having pain ever since. The patient is currently awake alert but she states that she has been hypoglycemic in the past she also states she's been having black stool recently and has been having red stool this morning. No other complaints. No other modifying factors or information available MD Complaint: confusion - Related Data Home Medications Medication Instructions Recorded Confirmed DULoxetine HCL [Cymbalta] 30 mg PO BID 04/12/16 07/24/18 Pravastatin Sodium [Pravachol] 20 mg PO DAILY 04/12/16 07/24/18 Levothyroxine Sodium 50 mcg PO DAILY 05/19/16 07/24/18 Nitroglycerin Sl Tabs [Nitrostat] 0.4 mg PO Q5M PRN 05/19/16 07/24/18 Vitamin B Complex 1 cap PO DAILY 05/19/16 07/24/18 Lisinopril [Zestril] 5 mg PO DAILY 11/29/17 07/24/18 Metoprolol Tartrate [Lopressor] 25 mg PO DAILY 11/29/17 07/24/18 Temazepam [Restoril] 15 mg PO HS 11/29/17 07/24/18 Ascorbic Acid [Vitamin C] 1,000 mg PO DAILY 07/24/18 07/24/18 Aspirin EC [Ecotrin Low Dose] 81 mg PO DAILY 07/24/18 07/24/18 Biotin 10 mg PO DAILY 07/24/18 07/24/18 Calcium Carbonate [Calcium] 1,200 mg PO DAILY 07/24/18 07/24/18 Cholecalciferol [Vitamin D3] 4,000 unit PO DAILY 07/24/18 07/24/18 Cranberry Fruit Extract [Cranberry] 500 mg PO DAILY 07/24/18 07/24/18 Cyanocobalamin (Vitamin B-12) 2,000 mcg PO DAILY 07/24/18 07/24/18 [Vitamin B-12] Furosemide [Lasix] 40 mg PO DAILY 07/24/18 07/24/18 Garlic 1 tab PO BID 07/24/18 07/24/18 L.acidoph,Paracasei, B.lactis 1 cap PO DAILY 07/24/18 07/24/18 [Probiotic] Magnesium Oxide [Mag-Ox] 500 mg PO BID 07/24/18 07/24/18 Multivitamin [Multivitamins Adult 3 tab PO DAILY 07/24/18 07/24/18 Gummies] Omeprazole [PriLOSEC] 20 mg PO AC-BID 07/24/18 07/24/18 Ondansetron [Zofran ODT] 4 mg PO Q8H PRN 07/24/18 07/24/18 Potassium 99 mg PO DAILY 07/24/18 07/24/18 Protein Shake(Unknown) 1 can PO DAILY 07/24/18 07/24/18 Zinc 50 mg PO DAILY 07/24/18 07/24/18 metFORMIN HCL [Glucophage] 500 mg PO DAILY 07/24/18 07/24/18 Allergies Allergy/AdvReac Type Severity Reaction Status Date / Time morphine AdvReac Chest Pain Verified 07/29/19 11:57 Review of Systems ROS Statement: Those systems with pertinent positive or pertinent negative responses have been documented in the HPI. ROS Other: All systems not noted in ROS Statement are negative. Past Medical History Past Medical History: Coronary Artery Disease (CAD), CVA/TIA, GERD/Reflux, Hypertension, Myocardial Infarction ([place]) Additional Past Medical History / Comment(s): rt side dominant. past stroke in 2009 left pt with some short term memory problems and pt stated"when she gets stressed the 4th/5th finger on rt hand tingle and 4th/5th toe rt foot tingle"Chronic constipation, chronic anxiety, depression, tremors, GI reflux, hypertension, hyperlipidemia,2016 mi"i was on life support for 10 days" Last Myocardial Infarction Date:: 2015 History of Any Multi-Drug Resistant Organisms: None Reported Past Surgical History: Cholecystectomy, Heart Catheterization, Hysterectomy, Tonsillectomy, Tubal Ligation Additional Past Surgical History / Comment(s): Thyroidectomy Past Anesthesia/Blood Transfusion Reactions: No Reported Reaction Past Psychological History: Anxiety, Depression Smoking Status: Former smoker Past Alcohol Use History: None Reported Past Drug Use History: None Reported - Past Family History Father Family Medical History: Myocardial Infarction ([place]), Vascular Disorder Additional Family Medical History / Comment(s): depression. poor circulation, et oh Mother Additional Family Medical History / Comment(s): pacemaker General Exam - General Exam Comments Initial Comments: Is a well-developed well-nourished awake alert anxious appearing female Limitations: no limitations General appearance: alert, anxious Head exam: Present: atraumatic, normocephalic, normal inspection Eye exam: Present: normal appearance, PERRL, EOMI. Absent: scleral icterus, c onjunctival injection, periorbital swelling ENT exam: Present: mucous membranes dry Neck exam: Present: normal inspection, full ROM, other. Absent: tenderness, meningismus, lymphadenopathy Respiratory exam: Present: normal lung sounds bilaterally. Absent: respiratory distress, wheezes, rales, rhonchi, stridor Cardiovascular Exam: Present: regular rate, normal rhythm, normal heart sounds. Absent: systolic murmur, diastolic murmur, rubs, gallop, clicks GI/Abdominal exam: Present: soft, normal bowel sounds, other (Distended bladder). Absent: distended, tenderness, guarding, rebound, rigid Rectal exam: Present: normal inspection, other (No masses no stool noted that currently there is small amount of brown stool noted on the fingertip with a gloved hand.. The exam was performed with a female nurse present) Extremities exam: Present: normal inspection, full ROM, normal capillary refill. Absent: tenderness, pedal edema, joint swelling, calf tenderness Back exam: Present: normal inspection Neurological exam: Present: alert, oriented X3, CN II-XII intact Psychiatric exam: Present: normal affect, normal mood Skin exam: Present: warm, dry, intact, normal color. Absent: rash Course Vital Signs 07/29/19 07/29/19 11:57 14:00 Temperature 98.4 F Pulse Rate 72 76 Respiratory 16 18 Rate Blood Pressure 137/72 127/83 O2 Sat by Pulse 100 100 Oximetry Medical Decision Making - Medical Decision Making I did discuss the findings with the patient she does have evidence of right upper lobe infiltrate versus a mass she has been coughing this may represent pneumonia. Patient will has evidence of UTI. The case is discussed with Dr. Farnsworth. Patient be admitted with IV antibiotics and further evaluation for the x-ray findings - Lab Data Result diagrams: 07/29/19 12:25 07/29/19 12:25 Lab Results 07/29/19 07/29/19 07/29/19 Range/Units 12:15 12:25 12:25 WBC 7.5 (3.8-10.6) k/uL RBC 4.42 (3.80-5.40) m/uL Hgb 12.9 (11.4-16.0) gm/dL Hct 39.2 (34.0-46.0) % MCV 88.7 (80.0-100.0) fL MCH 29.3 (25.0-35.0) pg MCHC 33.0 (31.0-37.0) g/dL RDW 13.4 (11.5-15.5) % Plt Count 312 (150-450) k/uL Neutrophils % 62 % Lymphocytes % 29 % Monocytes % 5 % Eosinophils % 1 % Basophils % 1 % Neutrophils # 4.6 (1.3-7.7) k/uL Lymphocytes # 2.2 (1.0-4.8) k/uL Monocytes # 0.4 (0-1.0) k/uL Eosinophils # 0.1 (0-0.7) k/uL Basophils # 0.1 (0-0.2) k/uL Sodium (137-145) mmol/L Potassium (3.5-5.1) mmol/L Chloride (98-107) mmol/L Carbon Dioxide (22-30) mmol/L Anion Gap mmol/L BUN (7-17) mg/dL Creatinine (0.52-1.04) mg/dL Est GFR (CKD-EPI)AfAm (>60 ml/min/1.73 sqM) Est GFR (CKD-EPI)NonAf (>60 ml/min/1.73 sqM) Glucose (74-99) mg/dL POC Glucose (mg/dL) 105 H (75-99) mg/dL POC Glu Pricer Bagger ID Collin Rivas Plasma Lactic Acid Wilder 1.2 (0.7-2.0) mmol/L Calcium (8.4-10.2) mg/dL Magnesium (1.6-2.3) mg/dL Total Bilirubin (0.2-1.3) mg/dL AST (14-36) U/L ALT (9-52) U/L Alkaline Phosphatase (38-126) U/L Ammonia <9 (<30) umol/L Creatine Kinase (30-135) U/L Total Protein (6.3-8.2) g/dL Albumin (3.5-5.0) g/dL Lipase (23-300) U/L Urine Color Urine Appearance (Clear) Urine pH (5.0-8.0) Ur Specific [place] (1.001-1.035) Urine Protein (Negative) Urine Glucose (UA) (Negative) Urine Ketones (Negative) Urine Blood (Negative) Urine Nitrite (Negative) Urine Bilirubin (Negative) Urine Urobilinogen (<2.0) mg/dL Ur Leukocyte Esterase (Negative) Urine RBC (0-5) /hpf Urine WBC (0-5) /hpf Ur Squamous Epith Cells (0-4) /hpf Urine Bacteria (None) /hpf Hyaline Casts (0-2) /lpf Urine Mucus (None) /hpf Stool Occult Blood (Negative) 07/29/19 07/29/19 07/29/19 Range/Units 12:25 13:00 13:15 WBC (3.8-10.6) k/uL RBC (3.80-5.40) m/uL Hgb (11.4-16.0) gm/dL Hct (34.0-46.0) % MCV (80.0-100.0) fL MCH (25.0-35.0) pg MCHC (31.0-37.0) g/dL RDW (11.5-15.5) % Plt Count (150-450) k/uL Neutrophils % % Lymphocytes % % Monocytes % % Eosinophils % % Basophils % % Neutrophils # (1.3-7.7) k/uL Lymphocytes # (1.0-4.8) k/uL Monocytes # (0-1.0) k/uL Eosinophils # (0-0.7) k/uL Basophils # (0-0.2) k/uL Sodium 141 (137-145) mmol/L Potassium 4.1 (3.5-5.1) mmol/L Chloride 103 (98-107) mmol/L Carbon Dioxide 29 (22-30) mmol/L Anion Gap 9 mmol/L BUN 31 H (7-17) mg/dL Creatinine 1.24 H (0.52-1.04) mg/dL Est GFR (CKD-EPI)AfAm 48 (>60 ml/min/1.73 sqM) Est GFR (CKD-EPI)NonAf 42 (>60 ml/min/1.73 sqM) Glucose 118 H (74-99) mg/dL POC Glucose (mg/dL) (75-99) mg/dL POC Glu Pricer Bagger ID Plasma Lactic Acid Wilder (0.7-2.0) mmol/L Calcium 10.2 (8.4-10.2) mg/dL Magnesium 2.3 (1.6-2.3) mg/dL Total Bilirubin 0.4 (0.2-1.3) mg/dL AST 25 (14-36) U/L ALT 31 (9-52) U/L Alkaline Phosphatase 96 (38-126) U/L Ammonia (<30) umol/L Creatine Kinase 34 (30-135) U/L Total Protein 7.5 (6.3-8.2) g/dL Albumin 4.4 (3.5-5.0) g/dL Lipase 139 (23-300) U/L Urine Color Yellow Urine Appearance Cloudy H (Clear) Urine pH 7.0 (5.0-8.0) Ur Specific [place] 1.017 (1.001-1.035) Urine Protein Trace H (Negative) Urine Glucose (UA) Negative (Negative) Urine Ketones Negative (Negative) Urine Blood Negative (Negative) Urine Nitrite Negative (Negative) Urine Bilirubin Negative (Negative) Urine Urobilinogen <2.0 (<2.0) mg/dL Ur Leukocyte Esterase Large H (Negative) Urine RBC 7 H (0-5) /hpf Urine WBC 49 H (0-5) /hpf Ur Squamous Epith Cells 3 (0-4) /hpf Urine Bacteria Rare H (None) /hpf Hyaline Casts 1 (0-2) /lpf Urine Mucus Rare H (None) /hpf Stool Occult Blood Negative (Negative) - EKG Data -: EKG Interpreted by Me EKG Comments: Normal sinus rhythm of 75 with PACs noted first-degree AV block TX interval 212 QRS duration 72 QT since QTC 388/[address]-T wave changes - Radiology Data Radiology results: report reviewed (I did review the imaging and report computed tomography scan shows no acute findings x-ray shows evidence of right upper lobe infiltrate versus mass.), image reviewed Disposition Clinical Impression: Pneumonia, Urinary tract infection, Failure of outpatient treatment, Confusion Disposition: ADMITTED IP TO THIS HOSP Condition: Fair Referrals: Heri Kaminski MD [Primary Care Provider] - 1-2 days
[2019-07-29 12:17] LABS: Glucose,Whole Blood 105 mg/dL (75-99)
--- NOTE | 2019-07-29 12:43 | XR ---
EXAMINATION TYPE: XR chest 2V DATE OF EXAM: 07/29/2019 COMPARISON: 07/24/2018 HISTORY: Shortness of breath TECHNIQUE: Frontal and lateral views of the chest are obtained. FINDINGS: Scattered senescent parenchymal changes noted. Hyperinflation compatible with COPD. Wedge-shaped density right upper lobe is noted. This could reflect infiltrate however underlying mass is not excluded. Consider CT of the chest are further evaluation. Heart size is stable. Mediastinal structures are stable and grossly unremarkable. No evidence for hilar prominence. Degenerative changes dorsal spine. IMPRESSION: 1. Wedge-shaped density right upper lobe is noted. This could reflect infiltrate however underlying m ass is not excluded. Consider CT of the chest are further evaluation.
[2019-07-29 12:45] LABS: Basophils # (A) 0.1 k/uL (0-0.2); Basophils % (A) 1 %; Eosinophils # (A) 0.1 k/uL (0-0.7); Eosinophils % (A) 1 %; HCT 39.2 % (34.0-46.0); HGB 12.9 gm/dL (11.4-16.0); Lymphocytes # (A) 2.2 k/uL (1.0-4.8); Lymphocytes % (A) 29 %; MCH 29.3 pg (25.0-35.0); MCV 88.7 fL (80.0-100.0); Mean Platelet Volume 6.3; Monocytes # (A) 0.4 k/uL (0-1.0); Monocytes % (A) 5 %; Neutrophils # (A) 4.6 k/uL (1.3-7.7); Neutrophils % (A) 62 %; Platelet Count 312 k/uL (150-450); RBC 4.42 m/uL (3.80-5.40); RDW 13.4 % (11.5-15.5); WBC 7.5 k/uL (3.8-10.6)
[2019-07-29 13:05] LABS: Ammonia <9 umol/L (<30); Lactic Acid, Venous 1.2 mmol/L (0.7-2.0)
[2019-07-29 13:08] LABS: Albumin 4.4 g/dL (3.5-5.0); Calcium 10.2 mg/dL (8.4-10.2); Magnesium 2.3 mg/dL (1.6-2.3); Potassium 4.1 mmol/L (3.5-5.1); Total Bilirubin 0.4 mg/dL (0.2-1.3); Total Protein 7.5 g/dL (6.3-8.2)
[2019-07-29 13:44] LABS: Appearance,Urine Cloudy (Clear); Bacteria,Urine Rare /hpf; Bilirubin,Urine Negative (Negative); Blood,Urine Negative (Negative); Color,Urine Yellow; Glucose,Urine (UA) Negative (Negative); Hyaline Casts,Urine 1 /lpf (0-2); Ketones,Urine Negative (Negative); Leukocyte Esterase,Urine Large (Negative); Mucus,Urine Rare /hpf; Nitrite,Urine Negative (Negative); Protein,Urine Trace (Negative); RBC,Urine 7 /hpf (0-5); Specific Gravity,Urine 1.017 (1.001-1.035); Squamous Epithelial Cell,Urine 3 /hpf (0-4); Urobilinogen,Urine <2.0 mg/dL (<2.0)
--- NOTE | 2019-07-29 13:55 | CT ---
EXAMINATION TYPE: CT brain wo con DATE OF EXAM: 07/29/2019 COMPARISON: 04/17/2016 HISTORY: confusion CT DLP: 1087.[address] of the brain was performed. The ventricles, basal cisterns and sulci overlying the cerebral convexities demonstrate mild enlargem ent. There is no evidence for intracranial hemorrhage or sulcal effacement. There is decreased attenuation about the periventricular white matter and deep white matter of both c erebral hemispheres, compatible with chronic small vessel ischemia. Differential diagnosis does inclu de demyelination. No mass effects are seen.No midline shift. Osseous calvarium is intact. If symptoms persist consider MRI. IMPRESSION: 1. Age related atrophic and chronic small vessel ischemic change without acute intracranial process s een at this time.
[2019-07-29] MEDS ORDERED: NALOXONE 0.4 MG/ML 1 ML VIAL IV PRN (14:33)
[2019-07-29] MEDS ORDERED: ONDANSETRON ODT 4 MG TAB PO PRN (14:35)
[2019-07-29] MEDS ORDERED: NITROGLYCERIN SL TABS 0.4 MG TAB SUBLINGUAL PRN (14:35)
[2019-07-29] MEDS ORDERED: PIPERACILLIN-TAZOBACTAM 3.375 GM in SODIUM CHLORIDE 0.9% 100 ML IVPB STA (14:38)
[2019-07-29] MEDS ORDERED: ONDANSETRON 4 MG/2 ML VIAL IVP PRN (15:02)
[2019-07-29] MEDS: SODIUM CHLORIDE 0.9% 1,000 ML IV SCH (15:10)
--- NOTE | 2019-07-29 15:17 | P.HPIM ---
<Arpita Turcios P - Last Filed: 07/29/19 14:55> History of Present Illness H&P Date: 07/29/19 This is a 78-year-old female patient who presented with complaints of intermittent confusion. patient reports that she's had episodes of intermittent confusion of the past few days. Patient reports that she also had dark stools. Patient does appear to be a poor historian.patient reports she has been having intermittent cough unable to recall she's been having fevers. Patient does reports she smokes marijuana daily. patient does have a past medical history of coronary artery disease CVA, GERD, hypertension, myocardial infarction, anxiety and depression. chest x-ray showing wedge-shaped density right upper lobe is no alix this could reflect infiltrate however underlying mass is not excluded consider CT of the chest for further evaluation. PET/CT completed showing age- related atrophic and chronic small vessel ischemic change without acute intracranial process seen at this time. EKG completed showing sinus rhythm with first-degree AV block with premature atrial complexes. UA showing large amount of leukocyte Estrace. Urine culture ordered. Patient started on Zosyn. Stool for occult negative.lactic acid 1.2.urine culture ordered. Patient started on Zosyn. Review of Systems please refer to HPI otherwise unremarkable Past Medical History Past Medical History: Coronary Artery Disease (CAD), CVA/TIA, GERD/Reflux, Hypertension, Myocardial Infarction ([place]) Additional Past Medical History / Comment(s): rt side dominant. past stroke in 2009 left pt with some short term memory problems and pt stated"when she gets stressed the 4th/5th finger on rt hand tingle and 4th/5th toe rt foot tingle"Chronic constipation, chronic anxiety, depression, tremors, GI reflux, hypertension, hyperlipidemia,2016 mi"i was on life support for 10 days" Last Myocardial Infarction Date:: 2016 History of Any Multi-Drug Resistant Organisms: None Reported Past Surgical History: Cholecystectomy, Heart Catheterization, Hysterectomy, Tonsillectomy, Tubal Ligation Additional Past Surgical History / Comment(s): Thyroidectomy Past Anesthesia/Blood Transfusion Reactions: No Reported Reaction Past Psychological History: Anxiety, Depression Smoking Status: Former smoker Past Alcohol Use History: None Reported Past Drug Use History: None Reported - Past Family History Father Family Medical History: Myocardial Infarction ([place]), Vascular Disorder Additional Family Medical History / Comment(s): depression. poor circulation, etoh Mother Additional Family Medical History / Comment(s): pacemaker Medications and Allergies Home Medications Medication Instructions Recorded Confirmed Type DULoxetine HCL [Cymbalta] 30 mg PO BID 04/12/16 07/29/19 History Pravastatin Sodium [Pravachol] 20 mg PO DAILY 04/12/16 07/29/19 History Levothyroxine Sodium 50 mcg PO DAILY 05/19/16 07/29/19 History Nitroglycerin Sl Tabs [Nitrostat] 0.4 mg PO Q5M PRN 05/19/16 07/29/19 History Lisinopril [Zestril] 5 mg PO DAILY 11/29/17 07/29/19 History Metoprolol Tartrate [Lopressor] 25 mg PO DAILY 11/29/17 07/29/19 History Aspirin EC [Ecotrin Low Dose] 81 mg PO DAILY 07/24/18 07/29/19 History Biotin 10 mg PO DAILY 07/24/18 07/29/19 History Furosemide [Lasix] 40 mg PO DAILY 07/24/18 07/29/19 History Garlic 1 tab PO BID 07/24/18 07/29/19 History Multivitamin [Multivitamins Adult 3 tab PO DAILY 07/24/18 07/29/19 History Gummies] Omeprazole [PriLOSEC] 20 mg PO AC-BID 07/24/18 07/29/19 History Ondansetron [Zofran ODT] 4 mg PO Q8H PRN 07/24/18 07/29/19 History metFORMIN HCL [Glucophage] 500 mg PO DAILY 07/24/18 07/29/19 History ARIPiprazole [Abilify] 5 mg PO DAILY 07/29/19 07/29/19 History Calcium Carbonate/Vitamin D3 1 tab PO DAILY 07/29/19 07/29/19 History [Calcium 500-Vit D3 200 Tablet] Cefuroxime Axetil [Ceftin] 500 mg PO BID 07/29/19 07/29/19 History HYDROcodone/APAP 5-325MG [[place] 1 tab PO BID PRN 07/29/19 07/29/19 History 5-325] Melatonin 10 mg PO HS PRN 07/29/19 07/29/19 History Allergies Allergy/AdvReac Type Severity Reaction Status Date / Time morphine AdvReac Chest Pain Verified 07/29/19 16:27 Physical Exam Vitals: Vital Signs Temp Pulse Resp BP Pulse Ox 07/29/19 14:00 76 18 127/83 100 07/29/19 11:57 98.4 F 72 16 137/72 100 Intake and Output 07/28/19 07/29/19 07/29/19 22:59 06:59 14:59 Other: Weight 72.575 kg Head normocephalic Neck supple Lungs clear to auscultation bilaterally no wheezing or crackles Heart regular rate and rhythm S1-S2, no rub or gallop Abdomen is soft nontender nondistended positive bowel sounds no hepatosplenomegaly Extremities no edema Neuro alert and orientated to 3. Short-term memory intermittent confusion Results CBC & Chem 7: 07/29/19 12:25 07/29/19 12:25 Labs: Abnormal Lab Results - Last 24 Hours (Table) 07/29/19 07/29/19 07/29/19 Range/Units 12:15 12:25 13:15 BUN 31 H (7-17) mg/dL Creatinine 1.24 H (0.52-1.04) mg/dL Glucose 118 H (74-99) mg/dL POC Glucose (mg/dL) 105 H (75-99) mg/dL Urine Appearance Cloudy H (Clear) Urine Protein Trace H (Negative) Ur Leukocyte Esterase Large H (Negative) Urine RBC 7 H (0-5) /hpf Urine WBC 49 H (0-5) /hpf Urine Bacteria Rare H (None) /hpf Urine Mucus Rare H (None) /hpf Assessment and Plan Assessment: 1. Altered mental status secondary to UTI and possible pneumonia. Head CT completed showing age-related atrophic and chronic small vessel ischemic changes without acute intracranial process seen at this time 2. Urinary tract infection. UA positive for urinary tract infection urine culture ordered. Patient started on Zosyn 3. Possible pneumonia.chest x-ray completed showing wedge-shaped density right upper lobe is noted this could reflect infiltrate however underlying mass is not excluded consider CT of the chest are further evaluation. Patient currently on Zosyn. pulmonary services will be consulted 4. possible dark tarry stools. Hemoglobin stable 12.9. stool negative for occult blood negative. Patient is on ferrous sulfate 5. history of coronary artery disease with previous heart cath 6. History of CVA 2009 patient does have some short-term memory problems right- sided dominant 7. History of essential hypertension Home medications resumed 8. History of myocardial infarction 9. History of anxiety and depression. Home medications resumed 10. Hypothyroidism. Sythroid resumed. TSH level ordered 11. Diabetes mellitus type 2. Patient currently on metformin. Sliding scale insulin added. will hold Metformin due to possible computed tomography scan 12. Marijuana use. Patient states that she smokes marijuana daily. Will order drug screen 13. Acute on chronic kidney disease. creatinine elevated at 1.24 and bun 31. Continue normal saline at 80. Metformin will be held for possible computed tomography scan DVT prophylaxis heparin. GI prophylaxis Pepcid Time with Patient: Greater than 30 (Greater than 60% of the total time spent in counseling and coordination of care. I performed an examination of the patient and discussed their management with the Nurse Practitioner. I have reviewed the Nurse Practitioner's notes and agree with the documented findings and plan of care) <Heri Kaminski - Last Filed: 08/01/19 09:50> Physical Exam Vitals: Vital Signs Temp Pulse Resp BP Pulse Ox 08/01/19 05:49 97.8 F 55 L 16 125/65 96 07/31/19 20:00 98.0 F 60 17 97/51 96 07/31/19 15:00 98.0 F 64 14 103/57 100 Intake and Output 07/31/19 08/01/19 08/01/19 22:59 06:59 14:59 Other: Voiding Method Toilet # Voids 1 2 1 Results CBC & Chem 7: 08/01/19 07:58 08/01/19 07:58 Labs: Abnormal Lab Results - Last 24 Hours (Table) 07/31/19 07/31/19 07/31/19 Range/Units 09:08 09:08 12:14 Hgb 11.2 L (11.4-16.0) gm/dL BUN 21 H (7-17) mg/dL Creatinine 1.52 H (0.52-1.04) mg/dL Glucose 148 H (74-99) mg/dL POC Glucose (mg/dL) 125 H (75-99) mg/dL Total Protein 6.2 L (6.3-8.2) g/dL 07/31/19 07/31/19 08/01/19 Range/Units 17:11 20:31 07:15 Hgb (11.4-16.0) gm/dL BUN (7-17) mg/dL Creatinine (0.52-1.04) mg/dL Glucose (74-99) mg/dL POC Glucose (mg/dL) 113 H 112 H 129 H (75-99) mg/dL Total Protein (6.3-8.2) g/dL 08/01/19 Range/Units 07:58 Hgb (11.4-16.0) gm/dL BUN 20 H (7-17) mg/dL Creatinine 1.36 H (0.52-1.04) mg/dL Glucose 119 H (74-99) mg/dL POC Glucose (mg/dL) (75-99) mg/dL Total Protein (6.3-8.2) g/dL Microbiology - Last 24 Hours (Table) 07/29/19 13:15 Urine Culture - Final Urine,Voided Enterococcus faecalis VRE Escherichia coli 07/29/19 15:01 Blood Culture - Preliminary Blood No Growth after 48 hours Assessment and Plan Assessment: Patient requesting her son son be called and updated on her plan of care. Will call Patient's son per request
[2019-07-29 15:30] LABS: Amphetamine Screen,Urine Not Detected (NotDetected); Barbiturate Screen,Urine Not Detected (NotDetected); Benzodiazepines Screen,Urine Detected (NotDetected); Cocaine Screen,Urine Not Detected (NotDetected); Methadone Screen, Urine Not Detected (NotDetected); Opiate Screen,Urine Detected (NotDetected); Oxycodone Screen, Urine Not Detected (NotDetected); Phencyclidine Screen,Urine Not Detected (NotDetected); Tricyclic Antidepressant,Urine Not Detected (NotDetected); Urn Cannabinoid Scrn Detected (NotDetected)
[2019-07-29] MEDS ORDERED: LORazepam 2 MG/ML INJ IV PRN (16:40)
[2019-07-29 17:11] LABS: Glucose,Whole Blood 120 mg/dL (75-99)
[2019-07-29] MEDS: INSULIN ASPART (NovoLOG) 100 UNIT/ML VIAL SQ SCH ×2 (17:22→21:24)
[2019-07-29] MEDS ORDERED: NON FORMULARY DRUG (Garlic [Garlic] 1 TAB) PO SCH (21:00)
[2019-07-29 21:01] LABS: Glucose,Whole Blood 135 mg/dL (75-99)
[2019-07-29] MEDS: TEMAZEPAM 15 MG CAP PO PRN (21:23)
[2019-07-29] MEDS: DULoxetine HCL 30 MG CAPSULE.DR PO SCH (21:23)
[2019-07-29] MEDS: MAGNESIUM OXIDE 400 MG TAB PO SCH (21:24)
[2019-07-29] MEDS: HEPARIN SODIUM,PORCINE 5,000 UNIT/ML 1 ML VIAL SQ SCH (21:24)
[2019-07-30] MEDS: PIPERACILLIN-TAZOBACTAM 3.375 GM in SODIUM CHLORIDE 0.9% 100 ML IVPB SCH ×4 (01:18→23:58)
[2019-07-30] MEDS: SODIUM CHLORIDE 0.9% 1,000 ML IV SCH ×2 (05:52→15:21)
[2019-07-30] MEDS: LEVOTHYROXINE 50 MCG TAB PO SCH (05:53)
[2019-07-30 07:12] LABS: Glucose,Whole Blood 121 mg/dL (75-99)
[2019-07-30] MEDS: INSULIN ASPART (NovoLOG) 100 UNIT/ML VIAL SQ SCH ×4 (07:22→21:08)
[2019-07-30] MEDS ORDERED: metFORMIN 500 MG TAB PO SCH (07:30)
[2019-07-30] MEDS ORDERED: PANTOPRAZOLE 40 MG TABLET PO SCH (07:30)
[2019-07-30 08:05] LABS: Basophils % (A) 0 %; Eosinophils # (A) 0.1 k/uL (0-0.7); Eosinophils % (A) 2 %; HCT 37.6 % (34.0-46.0); HGB 12.1 gm/dL (11.4-16.0); Lymphocytes # (A) 2.2 k/uL (1.0-4.8); Lymphocytes % (A) 33 %; MCH 28.8 pg (25.0-35.0); MCHC 32.1 g/dL (31.0-37.0); MCV 89.8 fL (80.0-100.0); Mean Platelet Volume 5.9; Monocytes # (A) 0.5 k/uL (0-1.0); Monocytes % (A) 7 %; Neutrophils # (A) 3.8 k/uL (1.3-7.7); Neutrophils % (A) 55 %; Platelet Count 323 k/uL (150-450); RBC 4.19 m/uL (3.80-5.40); WBC 6.8 k/uL (3.8-10.6)
[2019-07-30 08:07] LABS: Potassium 4.2 mmol/L (3.5-5.1); Total Bilirubin 0.4 mg/dL (0.2-1.3); Total Protein 6.7 g/dL (6.3-8.2)
[2019-07-30] MEDS: HEPARIN SODIUM,PORCINE 5,000 UNIT/ML 1 ML VIAL SQ SCH ×2 (08:07→21:12)
[2019-07-30] MEDS: METOPROLOL TARTRATE 25 MG TAB PO SCH (08:08)
[2019-07-30] MEDS: MULTIVITAMINS, THERA 1 EACH TAB PO SCH (08:08)
[2019-07-30] MEDS: MAGNESIUM OXIDE 400 MG TAB PO SCH ×2 (08:08→21:11)
[2019-07-30] MEDS: ASCORBIC ACID 500 MG TAB PO SCH (08:08)
[2019-07-30] MEDS: CALCIUM CARBONATE 500 MG CHEWABLE PO SCH (08:08)
[2019-07-30] MEDS: FUROSEMIDE 40 MG TAB PO SCH (08:08)
[2019-07-30] MEDS: DULoxetine HCL 30 MG CAPSULE.DR PO SCH ×2 (08:08→21:12)
[2019-07-30] MEDS: PRAVASTATIN SODIUM 20 MG TAB PO SCH (08:08)
[2019-07-30] MEDS: CHOLECALCIFEROL 1,000 UNIT TAB PO SCH (08:08)
[2019-07-30] MEDS: LACTOBACILLUS ACIDOPH & BULGAR 1 EACH PACKET PO SCH (08:09)
[2019-07-30] MEDS: ASPIRIN 81 MG PO SCH (08:09)
[2019-07-30] MEDS: LISINOPRIL 5 MG TAB PO SCH (08:09)
[2019-07-30] MEDS: FAMOTIDINE 20 MG TAB PO SCH (08:09)
[2019-07-30] MEDS: CYANOCOBALAMIN 500 MCG TAB PO SCH (08:09)
[2019-07-30] MEDS: POTASSIUM CHLORIDE ER 10 MEQ TAB.ER.PRT PO SCH (08:09)
[2019-07-30] MEDS: ZINC SULFATE 220 MG CAP PO SCH (08:10)
[2019-07-30] MEDS: ACETAMINOPHEN TAB 325 MG TAB PO PRN (08:50)
[2019-07-30] MEDS ORDERED: NON FORMULARY DRUG (Vitamin B Complex [Vitamin B Complex] 1 CAP) PO SCH (09:00)
[2019-07-30] MEDS ORDERED: NON FORMULARY DRUG (Cranberry Fruit Extract [Cranberry] 500 MG) PO SCH (09:00)
[2019-07-30] MEDS ORDERED: BIOTIN 10 MG PO SCH (09:00)
[2019-07-30 11:35] LABS: Glucose,Whole Blood 123 mg/dL (75-99)
[2019-07-30 11:48] VITALS: BMI 26.6
--- NOTE | 2019-07-30 12:56 | CDI ---
Documentation Clarification Form Date: 07/30/2019 12:44:48 PM From: Faby Menon RN CCDS Admit Date: 07/29/2019 2:33:00 PM Patient Name: Vickie Araya Visit Number: [id number] Discharge Date: ATTENTION: The Clinical Documentation Specialists (CDI) and [facility] Coding Staff appreciate your assistance in clarifying documentation. Please respond to the clarification below the line at the bottom and electronically sign. The CDI & [facility] Coding staff will review the response and follow-up if needed. Please note: Queries are made part of the Legal Health Record. If you have any questions, please contact the author of this message via ITS. Dr. Heri Kaminski Acute on chronic kidney disease Is documented in your H & P 07/29/2019 History/Risk Factors: 78-year-old female presents to the ED for intermittent confusion with a recent diagnosis of UTI. Medical history Htn; CAD; Clinical Indicators: Current 07/29/2019 BUN 31 CR 1.24 GFR 48 07/30/2019 BUN 22 CR 1.13 GFR 54 Patients Baseline BUN/CR/GFR: Unknown Treatment: 0.9ns 80cchr IVF, Hold Metformin for possible CT scan In order to capture the severity of condition, please clarify if the condition signifies: * CKD Stage 1 (GFR > 90) * CKD Stage 2 (GFR 60-89) * CKD Stage 3 (GFR 30-59) * Other, please specify * Unable to determine (Last Revision: December 2017) Acute on chronic Kidney disease stage 3 MTDD
--- NOTE | 2019-07-30 13:04 | P.PN ---
<Arpita Turcios P - Last Filed: 07/30/19 13:00> Subjective Progress Note Date: 07/30/19 This is a 78-year-old female patient who presented with complaints of intermittent confusion. patient reports that she's had episodes of intermittent confusion of the past few days. Patient reports that she also had dark stools. Patient does appear to be a poor historian.patient reports she has been having intermittent cough unable to recall she's been having fevers. Patient does reports she smokes marijuana daily. patient does have a past medical history of coronary artery disease CVA, GERD, hypertension, myocardial infarction, anxiety and depression. chest x-ray showing wedge-shaped density right upper lobe is noted this could reflect infiltrate however underlying mass is not excluded consider CT of the chest for further evaluation. PET/CT completed showing age- related atrophic and chronic small vessel ischemic change without acute intracranial process seen at this time. EKG completed showing sinus rhythm with first-degree AV block with premature atrial complexes. UA showing large amount of leukocyte Estrace. Urine culture ordered. Patient started on Zosyn. Stool for occult negative.lactic acid 1.2.urine culture ordered. Patient started on Zosyn. On 07/30/2019 patient is alert and oriented 3. Patient reports she is starting to feel improved. Patient did have increased confusion with agitation yesterday evening. Ativan ordered psych consult placed. Patient remains on Zosyn. Patient also reports that she is having loose stool. Stool for C. diff has been ordered. Pulmonary service is consulted for possible pulmonary nodule versus pneumonia. At this time patient denies chest pain or shortness of breath. Patient denies nausea or vomiting. Patient denies any urinary burning or frequency Objective - Vital Signs Vital signs: Vital Signs Temp 97.9 F 07/30/19 07:00 Pulse 86 07/30/19 07:00 Resp 14 07/30/19 07:00 BP 149/75 07/30/19 07:00 Pulse Ox 99 07/30/19 07:00 Intake & Output 07/29/19 07/30/19 07/30/19 18:59 06:59 18:59 Intake Total 990 Balance 990 Weight 72.575 kg 72.575 kg Intake: Intake, IV Titration 740 Amount Piperacillin-Tazobactam 3 100 .375 gm In Sodium Chloride 0.9% 100 ml @ 200 mls/hr IVPB Q8HR [facility] Rx#:[id number] Sodium Chloride 0.9% 1, 640 000 ml @ 80 mls/hr IV . [id number] [facility] Rx#:[id number] Oral 250 Other: Voiding Method Toilet # Voids 1 - Exam Head normocephalic Neck supple Lungs clear to auscultation bilaterally no wheezing or crackles Heart regular rate and rhythm S1-S2, no rub or gallop Abdomen is soft nontender nondistended positive bowel sounds no hepatosplenomegaly Extremities no edema Neuro alert and orientated to 3. Short-term memory intermittent confusion - Labs CBC & Chem 7: 07/30/19 07:08 07/30/19 07:08 Labs: Abnormal Lab Results - Last 24 Hours (Table) 07/29/19 07/29/19 07/29/19 Range/Units 12:25 13:15 15:16 BUN 31 H (7-17) mg/dL Creatinine 1.24 H (0.52-1.04) mg/dL Glucose 118 H (74-99) mg/dL POC Glucose (mg/dL) (75-99) mg/dL Urine Appearance Cloudy H (Clear) Urine Protein Trace H (Negative) Ur Leukocyte Esterase Large H (Negative) Urine RBC 7 H (0-5) /hpf Urine WBC 49 H (0-5) /hpf Urine Bacteria Rare H (None) /hpf Urine Mucus Rare H (None) /hpf Urine Opiates Screen Detected H (NotDetected) U Benzodiazepines Scrn Detected H (NotDetected) U Marijuana (THC) Screen Detected H (NotDetected) 07/29/19 07/29/19 07/30/19 Range/Units 17:05 20:54 07:08 BUN 22 H (7-17) mg/dL Creatinine 1.13 H (0.52-1.04) mg/dL Glucose 120 H (74-99) mg/dL POC Glucose (mg/dL) 120 H 135 H (75-99) mg/dL Urine Appearance (Clear) Urine Protein (Negative) Ur Leukocyte Esterase (Negative) Urine RBC (0-5) /hpf Urine WBC (0-5) /hpf Urine Bacteria (None) /hpf Urine Mucus (None) /hpf Urine Opiates Screen (NotDetected) U Benzodiazepines Scrn (NotDetected) U Marijuana (THC) Screen (NotDetected) 07/30/19 07/30/19 Range/Units 07:11 11:33 BUN (7-17) mg/dL Creatinine (0.52-1.04) mg/dL Glucose (74-99) mg/dL POC Glucose (mg/dL) 121 H 123 H (75-99) mg/dL Urine Appearance (Clear) Urine Protein (Negative) Ur Leukocyte Esterase (Negative) Urine RBC (0-5) /hpf Urine WBC (0-5) /hpf Urine Bacteria (None) /hpf Urine Mucus (None) /hpf Urine Opiates Screen (NotDetected) U Benzodiazepines Scrn (NotDetected) U Marijuana (THC) Screen (NotDetected) Microbiology - Last 24 Hours (Table) 07/29/19 13:15 Urine Culture - Preliminary Urine,Voided Assessment and Plan Assessment: 1. Altered mental status secondary to UTI and possible pneumonia. Head CT completed showing age-related atrophic and chronic small vessel ischemic changes without acute intracranial process seen at this time. Psych consult placed for increased agitation 2. Urinary tract infection. UA positive for urinary tract infection urine culture ordered. Patient started on Zosyn 3. Possible pneumonia.chest x-ray completed showing wedge-shaped density right upper lobe is noted this could reflect infiltrate however underlying mass is not excluded consider CT of the chest are further evaluation. Patient currently on Zosyn. pulmonary services will be consulted 4. possible dark tarry stools. Hemoglobin stable 12.9. stool negative for occult blood negative. Patient is on ferrous sulfate 5. history of coronary artery disease with previous heart cath 6. History of CVA 2009 patient does have some short-term memory problems right- sided dominant 7. History of essential hypertension Home medications resumed 8. History of myocardial infarction 9. History of anxiety and depression. Home medications resumed 10. Hypothyroidism. Sythroid resumed. TSH level 2.040 11. Diabetes mellitus type 2. Patient currently on metformin. Sliding scale insulin added. will hold Metformin due to possible computed tomography scan 12. Marijuana use. Patient states that she smokes marijuana daily. Will order drug screen 13. Acute on chronic kidney disease. creatinine elevated at 1.24 and bun 31. Continue normal saline at 80. Metformin will be held for possible computed tomography scan. Creatinine improving to 1.13 and bun 22 14. Diarrhea. Stool for cdiff ordered DVT prophylaxis heparin. GI prophylaxis Pepcid I performed an examination of the patient and discussed their management with the Nurse Practitioner. I have reviewed the Nurse Practitioner's notes and agree with the documented findings and plan of care <Heri Kaminski - Last Filed: 08/01/19 09:36> Objective - Vital Signs Vital signs: Vital Signs Temp 97.8 F 08/01/19 05:49 Pulse 55 L 08/01/19 05:49 Resp 16 08/01/19 05:49 BP 125/65 08/01/19 05:49 Pulse Ox 96 08/01/19 05:49 Intake & Output 07/31/19 08/01/19 08/01/19 18:59 06:59 18:59 Other: Voiding Method Toilet Toilet # Voids 2 2 - Labs CBC & Chem 7: 08/01/19 07:58 08/01/19 07:58 Labs: Abnormal Lab Results - Last 24 Hours (Table) 07/31/19 07/31/19 07/31/19 Range/Units 09:08 09:08 12:14 Hgb 11.2 L (11.4-16.0) gm/dL BUN 21 H (7-17) mg/dL Creatinine 1.52 H (0.52-1.04) mg/dL Glucose 148 H (74-99) mg/dL POC Glucose (mg/dL) 125 H (75-99) mg/dL Total Protein 6.2 L (6.3-8.2) g/dL 07/31/19 07/31/19 08/01/19 Range/Units 17:11 20:31 07:15 Hgb (11.4-16.0) gm/dL BUN (7-17) mg/dL Creatinine (0.52-1.04) mg/dL Glucose (74-99) mg/dL POC Glucose (mg/dL) 113 H 112 H 129 H (75-99) mg/dL Total Protein (6.3-8.2) g/dL 08/01/19 Range/Units 07:58 Hgb (11.4-16.0) gm/dL BUN 20 H (7-17) mg/dL Creatinine 1.36 H (0.52-1.04) mg/dL Glucose 119 H (74-99) mg/dL POC Glucose (mg/dL) (75-99) mg/dL Total Protein (6.3-8.2) g/dL Microbiology - Last 24 Hours (Table) 07/29/19 13:15 Urine Culture - Final Urine,Voided Enterococcus faecalis VRE Escherichia coli 07/29/19 15:01 Blood Culture - Preliminary Blood No Growth after 48 hours Assessment and Plan Assessment: Patient's mentation improved. Patient is alert and oriented x3
--- NOTE | 2019-07-30 13:08 | CDI ---
Documentation Clarification Form Date: 07/30/2019 12:57:10 PM From: Faby Menon Phone: '[phone] Admit Date: 07/29/2019 2:33:00 PM Patient Name: Vickie Araya Visit Number: [id number] Discharge Date: ATTENTION: The Clinical Documentation Specialists (CDI) and [facility] Coding Staff appreciate your assistance in clarifying documentation. Please respond to the clarification below the line at the bottom and electronically sign. The CDI & [facility] Coding staff will review the response and follow-up if needed. Please note: Queries are made part of the Legal Health Record. If you have any questions, please contact the author of this message via ITS. Dr. Heri Kaminski Altered Mental Status secondary to UTI and possible pneumonia is documented in your H&P 07/29/2019 History/Risk Factors: 78-year-old female presents to the ED via EMS for confusion recent diagnosis of UTI. Medical History CAD, [place] 2016; Stroke 2010; Anxiety; Depression Clinical Indicators: Labs: UA Large leukocyte esterase, Wbc 49; Hyaline casts 1 X Ray: Wedge shaped density right upper lobe is noted. CT Brain 07/29 Age related atrophic and chronic small ischemic change without acute intracranial process seen at this time. Treatment:07/29/2019 Zosyn ivpb q 8hrs 07/30 0.9ns 80cchr In your professional opinion, please clarify the etiology of the Altered Mental Status, if known. * Metabolic Encephalopathy secondary to UTI and possible pneumonia * Other condition (please specify) * Unable to determine (Last Revision: December 2017) Metabolic encephalopathy secondary to UTI and possible pneumonia MTDD
--- NOTE | 2019-07-30 15:48 | P.CNPUL ---
History of Present Illness Consult date: 07/30/19 Reason for consult: abnormal CXR/CT, other Chief complaint: Black tarry stools, diarrhea, dizziness History of present illness: This is a 78-year-old white female patient of Dr. Kaminski, with previous history of coronary artery disease, previous CVA/TIA, hypertension, myocardial infarction, anxiety, depression, remote history of smoking, who came into the hospital on 07/29/2019 for evaluation of intermittent confusion, and several other complaints, that included black tarry stools for a period of 2 months, diarrhea, nausea, lack of appetite, dehydration, dizziness. Patient reports recent history of urinary tract infection, and was started on a course of oral cefuroxime, and she only has 3 more days left on it. Patient reports worsening diarrhea in the last day or so, nausea, a few episodes of vomiting, lack of appetite. She states she is currently on iron supplement, she has been seen by Dr. Kaminski in regards to the black tarry stools. Denied any fever or chills, she has occasional dry cough which is chronic, and she thinks he may be related to one of medications. No chest pain, no chest congestion, no phlegm production. No pleurisy no chills, no urinary complaints. She does report some mild left upper chest reproducible tenderness with palpation, near the axillary area, no change with deep breathing and coughing. Reports a remote history of smoking, over 30 years ago. No history of alcohol abuse. Chest x-ray was completed showing wedge-shaped density in the right upper lobe. Brain CT was negative. Lab work showed a CBC within normal limits, electrolytes were within normal limits, B1 is 31 and creatinine was 1.24, lactic acid was 1.2, LFTs were normal, ammonia level less than 9, CK was 34, lipase was 139, TSH was within normal limits, urinalysis showed large amount of leuks, and 49 and white blood cells, urine culture was sent, urine drug screen showed, benzodiazepines and mar ijuana. Patient does have prescribed [place]. On today's exam patient is calm and comfortable, she is ambulating about the room, she had episode of diarrhea, she had been incontinent of stool, the stool was reportedly leg brown, with no blood in it, stool for occult blood was negative, hemoglobin is 12.1 today. No vomiting. Vital signs are stable, patient is awake and alert, oriented 3, she is answering questions appropriately. Culture is pending, she has been started on Zosyn, and IV 0.9 normal saline is infusing at a rate of 80 ML per hour. Denies any difficulty breathing, no cough or congestion, lung sounds reveal clear breath sounds bilaterally Review of Systems All systems: negative Constitutional: Reports anorexia, Reports poor appetite, Denies chills, Denies fever Eyes: denies blurred vision, denies pain Ears, nose, mouth and throat: Denies headache, Denies sore throat Cardiovascular: Reports lightheadedness, Denies chest pain, Denies shortness of breath Respiratory: Denies cough Gastrointestinal: Denies abdominal pain, Denies diarrhea, Denies nausea, Denies vomiting Genitourinary: Denies dysuria, Denies hematuria Musculoskeletal: Denies myalgias Integumentary: Denies pruritus, Denies rash Neurological: Reports change in mentation, Denies numbness, Denies weakness Psychiatric: Denies anxiety, Denies depression Endocrine: Denies fatigue, Denies weight change Past Medical History Past Medical History: Coronary Artery Disease (CAD), Heart Failure, CVA/TIA, GERD/Reflux, Hypertension, Memory Impairment, Myocardial Infarction (ND) Additional Past Medical History / Comment(s): Current UTI being treated with antibiotic, 2010 CVA with short term memory loss and is stressed pt states her 4th and 5th R fingers/toes tingle, 2016 [place] with pulmonary edema/chf/cardiom yopathy and was on life support for 10 days, pt denies NIDDM/states she has hypoglycemia, chronic R knee pain, chronic constipation, past bilateral arm/hand tremors. Last Myocardial Infarction Date:: 2015 History of Any Multi-Drug Resistant Organisms: None Reported Past Surgical History: Cholecystectomy, Heart Catheterization, Hysterectomy, Joint Replacement, Tonsillectomy, Tubal Ligation Additional Past Surgical History / Comment(s): Thyroidectomy d/t benign nodules, R total knee arthroplasty. Past Anesthesia/Blood Transfusion Reactions: No Reported Reaction Smoking Status: Former smoker - Past Family History Father Family Medical History: Myocardial Infarction (ND), Vascular Disorder Additional Family Medical History / Comment(s): Father had depression and of suicide. He had poor circulation, etoh abuse. Mother Additional Family Medical History / Comment(s): pacemaker Medications and Allergies Home Medications Medication Instructions Recorded Confirmed Type DULoxetine HCL [Cymbalta] 30 mg PO BID 04/12/16 07/29/19 History Pravastatin Sodium [Pravachol] 20 mg PO DAILY 04/12/16 07/29/19 History Levothyroxine Sodium 50 mcg PO DAILY 05/19/16 07/29/19 History Nitroglycerin Sl Tabs [Nitrostat] 0.4 mg PO Q5M PRN 05/19/16 07/29/19 History Lisinopril [Zestril] 5 mg PO DAILY 11/29/17 07/29/19 History Metoprolol Tartrate [Lopressor] 25 mg PO DAILY 11/29/17 07/29/19 History Aspirin EC [Ecotrin Low Dose] 81 mg PO DAILY 07/24/18 07/29/19 History Biotin 10 mg PO DAILY 07/24/18 07/29/19 History Furosemide [Lasix] 40 mg PO DAILY 07/24/18 07/29/19 History Garlic 1 tab PO BID 07/24/18 07/29/19 History Multivitamin [Multivitamins Adult 3 tab PO DAILY 07/24/18 07/29/19 History Gummies] Omeprazole [PriLOSEC] 20 mg PO AC-BID 07/24/18 07/29/19 History Ondansetron [Zofran ODT] 4 mg PO Q8H PRN 07/24/18 07/29/19 History metFORMIN HCL [Glucophage] 500 mg PO DAILY 07/24/18 07/29/19 History ARIPiprazole [Abilify] 5 mg PO DAILY 07/29/19 07/29/19 History Calcium Carbonate/Vitamin D3 1 tab PO DAILY 07/29/19 07/29/19 History [Calcium 500-Vit D3 200 Tablet] Cefuroxime Axetil [Ceftin] 500 mg PO BID 07/29/19 07/29/19 History HYDROcodone/APAP 5-325MG [[place] 1 tab PO BID PRN 07/29/19 07/29/19 History 5-325] Melatonin 10 mg PO HS PRN 07/29/19 07/29/19 History Allergies Allergy/AdvReac Type Severity Reaction Status Date / Time morphine AdvReac Chest Pain Verified 07/29/19 16:27 Physical Exam Vitals: Vital Signs Temp Pulse Pulse Resp BP BP Pulse Ox 07/30/19 07:00 97.9 F 86 14 149/75 99 07/29/19 21:00 98.0 F 74 18 133/56 100 07/29/19 15:48 98.1 F 85 18 140/79 99 07/29/19 15:14 98.2 F 75 18 158/76 99 07/29/19 14:00 76 18 127/83 100 Intake and Output 07/29/19 07/30/19 07/30/19 22:59 06:59 14:59 Intake Total 250 740 Balance 250 740 Intake: Intake, IV Titration 740 Amount Piperacillin-Tazobactam 3 100 .375 gm In Sodium Chloride 0.9% 100 ml @ 200 mls/hr IVPB Q8HR [facility] Rx#:[id number] Sodium Chloride 0.9% 1, 640 000 ml @ 80 mls/hr IV . [id number] [facility] Rx#:[id number] Oral 250 Other: Voiding Method Toilet # Voids 1 Weight 72.575 kg GENERAL EXAM: Alert, pleasant, 78-year-old white female on room air comfortable in no apparent distress. HEAD: Normocephalic/atraumatic. EYES: Normal reaction of pupils, equal size. Conjunctiva pink, sclera white. NOSE: Clear with pink turbinates. THROAT: No erythema or exudates. NECK: No masses, no JVD, no thyroid enlargement, no adenopathy. CHEST: No chest wall deformity. Symmetrical expansion. Area of reproducible tenderness in the left upper chest near the left axilla upon palpation LUNGS: Equal air entry with no crackles, wheeze, rhonchi or dullness. CVS: Regular rate and rhythm, normal S1 and S2, no gallops, no murmurs, no rubs ABDOMEN: Soft, nontender. No hepatosplenomegaly, normal bowel sounds, no guarding or rigidity. EXTREMITIES: No clubbing, no edema, no cyanosis, 2+ pulses and upper and lower extremities. MUSCULOSKELETAL: Muscle strength and tone normal. SPINE: No scoliosis or deformity SKIN: No rashes CENTRAL NERVOUS SYSTEM: Alert and oriented -3. No focal deficits, tone is normal in all 4 extremities. PSYCHIATRIC: Alert and oriented -3. Appropriate affect. Intact judgment and insight. Results - Laboratory Findings CBC and BMP: 07/30/19 07:08 11/12/19 07:08 Abnormal lab findings: Abnormal Labs 07/29/19 07/29/19 07/29/19 12:15 12:25 13:15 BUN 31 H Creatinine 1.24 H Glucose 118 H POC Glucose (mg/dL) 105 H Urine Appearance Cloudy H Urine Protein Trace H Ur Leukocyte Esterase Large H Urine RBC 7 H Urine WBC 49 H Urine Bacteria Rare H Urine Mucus Rare H Urine Opiates Screen U Benzodiazepines Scrn U Marijuana (THC) Screen 07/29/19 07/29/19 07/29/19 15:16 17:05 20:54 BUN Creatinine Glucose POC Glucose (mg/dL) 120 H 135 H Urine Appearance Urine Protein Ur Leukocyte Esterase Urine RBC Urine WBC Urine Bacteria Urine Mucus Urine Opiates Screen Detected H U Benzodiazepines Scrn Detected H U Marijuana (THC) Screen Detected H 07/30/19 07/30/19 07/30/19 07:08 07:11 11:33 BUN 22 H Creatinine 1.13 H Glucose 120 H POC Glucose (mg/dL) 121 H 123 H Urine Appearance Urine Protein Ur Leukocyte Esterase Urine RBC Urine WBC Urine Bacteria Urine Mucus Urine Opiates Screen U Benzodiazepines Scrn U Marijuana (THC) Screen - Diagnostic Findings Chest x-ray: report reviewed, image reviewed Additional studies: EKG reviewed Assessment and Plan Plan: Assessment: #1. Right upper lobe wedge-shaped density seen on the chest x-ray, under investigation. Rule out malignancy or pneumonia #2. Acute kidney injury, likely related to diarrhea and dehydration improving with IV hydration #3. Recent urinary tract infection, on outpatient treatments with cefuroxime #4. Altered mental status likely related to dehydration, urinary tract i nfection, improved, brain CT showed no acute changes #5. Acute diarrhea, rule out C. difficile colitis #6. Reported black tarry stools, occult is negative #7. Remote history of smoking, in remission for last 30 years #8. Anxiety/depression #9. Previous history of acute respiratory failure requiring intubation and mechanical ventilation related to pulmonary edema #10. Coronary artery disease, nonocclusive #11. Hypertension #12. Previous history of systolic dysfunction with an EF of 35-40%, with most recent echocardiogram showing improvement with an EF of 55-60%, mild aortic valv e sclerosis, mild mitral and tricuspid regurgitation #13. Hypothyroidism Plan: Continue IV hydration, continue antibiotics, we'll consider CT chest with contrast once the renal function improves. We'll repeat a BMP tomorrow, and may proceed with the CT chest tomorrow, if the renal function continues to improve. Previous CT chest angiogram from 2018 has been reviewed and showed areas of scar ring in bilateral apices of the lungs however the above-mentioned right upper lobe wedge-shaped density seen on the chest x-ray this admission is below the area of previous scarring seen on the old CTA chest. Clinically patient denies any cough, congestion, no fever or chills. Urine culture is pending. We'll obtain a stool for C. diff, stool for occult blood was negative. We will continue to follow I performed a history & physical examination of the patient and discussed their management with my nurse practitioner, Laure Schmidt. I reviewed the nurse practitioner's note and agree with the documented findings and plan of care. Lung sounds are positive for clear breath sounds. The findings and the impression was discussed with the patient. I attest to the documentation by the nurse practitioner. Time with Patient: Greater than 30
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
[2019-07-30 16:45] LABS: Glucose,Whole Blood 101 mg/dL (75-99)
[2019-07-30 20:44] LABS: Glucose,Whole Blood 96 mg/dL (75-99)
[2019-07-30] MEDS: TEMAZEPAM 15 MG CAP PO PRN (21:12)
[2019-07-31] MEDS: SODIUM CHLORIDE 0.9% 1,000 ML IV SCH ×2 (06:23→15:06)
[2019-07-31] MEDS: LEVOTHYROXINE 50 MCG TAB PO SCH (06:23)
[2019-07-31 07:23] LABS: Glucose,Whole Blood 109 mg/dL (75-99)
[2019-07-31] MEDS: INSULIN ASPART (NovoLOG) 100 UNIT/ML VIAL SQ SCH ×4 (07:41→21:52)
[2019-07-31] MEDS: PIPERACILLIN-TAZOBACTAM 3.375 GM in SODIUM CHLORIDE 0.9% 100 ML IVPB SCH ×2 (07:42→15:06)
[2019-07-31] MEDS: ACETAMINOPHEN TAB 325 MG TAB PO PRN ×2 (07:42→21:49)
[2019-07-31] MEDS: CYANOCOBALAMIN 500 MCG TAB PO SCH (07:43)
[2019-07-31] MEDS: LISINOPRIL 5 MG TAB PO SCH (07:43)
[2019-07-31] MEDS: ZINC SULFATE 220 MG CAP PO SCH (07:43)
[2019-07-31] MEDS: POTASSIUM CHLORIDE ER 10 MEQ TAB.ER.PRT PO SCH (07:43)
[2019-07-31] MEDS: HEPARIN SODIUM,PORCINE 5,000 UNIT/ML 1 ML VIAL SQ SCH ×2 (07:43→21:51)
[2019-07-31] MEDS: ASCORBIC ACID 500 MG TAB PO SCH (07:43)
[2019-07-31] MEDS: CALCIUM CARBONATE 500 MG CHEWABLE PO SCH (07:43)
[2019-07-31] MEDS: FAMOTIDINE 20 MG TAB PO SCH (07:43)
[2019-07-31] MEDS: METOPROLOL TARTRATE 25 MG TAB PO SCH (07:43)
[2019-07-31] MEDS: MAGNESIUM OXIDE 400 MG TAB PO SCH ×2 (07:43→21:50)
[2019-07-31] MEDS: LACTOBACILLUS ACIDOPH & BULGAR 1 EACH PACKET PO SCH (07:43)
[2019-07-31] MEDS: CHOLECALCIFEROL 1,000 UNIT TAB PO SCH (07:44)
[2019-07-31] MEDS: MULTIVITAMINS, THERA 1 EACH TAB PO SCH (07:44)
[2019-07-31] MEDS: ASPIRIN 81 MG PO SCH (07:44)
[2019-07-31] MEDS: DULoxetine HCL 30 MG CAPSULE.DR PO SCH ×2 (07:44→21:50)
[2019-07-31] MEDS: PRAVASTATIN SODIUM 20 MG TAB PO SCH (07:44)
[2019-07-31] MEDS: FUROSEMIDE 40 MG TAB PO SCH (07:44)
[2019-07-31] MEDS ORDERED: MELATONIN 5 MG TABLET PO PRN (10:12)
--- NOTE | 2019-07-31 10:14 | P.PN ---
<Arpita Turcios P - Last Filed: 07/31/19 10:07> Subjective Progress Note Date: 07/31/19 This is a 78-year-old female patient who presented with complaints of intermittent confusion. patient reports that she's had episodes of intermittent confusion of the past few days. Patient reports that she also had dark stools. Patient does appear to be a poor historian.patient reports she has been having intermittent cough unable to recall she's been having fevers. Patient does reports she smokes marijuana daily. patient does have a past medical history of coronary artery disease CVA, GERD, hypertension, myocardial infarction, anxiety and depression. chest x-ray showing wedge-shaped density right upper lobe is noted this could reflect infiltrate however underlying mass is not excluded consider CT of the chest for further evaluation. PET/CT completed showing age- related atrophic and chronic small vessel ischemic change without acute intracranial process seen at this time. EKG completed showing sinus rhythm with first-degree AV block with premature atrial complexes. UA showing large amount of leukocyte Estrace. Urine culture ordered. Patient started on Zosyn. Stool for occult negative.lactic acid 1.2.urine culture ordered. Patient started on Zosyn. On 07/30/2019 patient is alert and oriented 3. Patient reports she is starting to feel improved. Patient did have increased confusion with agitation yesterday evening. Ativan ordered psych consult placed. Patient remains on Zosyn. Patient also reports that she is having loose stool. Stool for C. diff has been ordered. Pulmonary service is consulted for possible pulmonary nodule versus pneumonia. At this time patient denies chest pain or shortness of breath. Patient denies nausea or vomiting. Patient denies any urinary burning or frequency On 07/31/2019 patient's alert and oriented 3. Patient reports she is feeling improved. Patient remains on Zosyn for antibiotic. Possible computed tomography scan today per pulmonary. Stool for C. diff has been ordered but diarrhea has subsided. Urine culture currently growing group D enterococcus gram-negative bacilli. Patient's son Chauck called per patient request yesterday and questions answered. Patient denies chest pain or shortness of breath. Patient denies nausea vomiting or diarrhea. Patient denies any urinary burning or frequency. Objective - Vital Signs Vital signs: Vital Signs Temp 97.4 F L 07/31/19 04:42 Pulse 67 07/31/19 04:42 Resp 20 07/31/19 04:42 BP 124/65 07/31/19 04:42 Pulse Ox 98 07/31/19 04:42 Intake & Output 07/30/19 07/31/19 07/31/19 18:59 06:59 18:59 Intake Total 300 Balance 300 Weight 72.575 kg Intake: Oral 300 Other: Voiding Method Toilet Toilet # Voids 2 1 # Bowel Movements 1 - Exam Head normocephalic Neck supple Lungs clear to auscultation bilaterally no wheezing or crackles Heart regular rate and rhythm S1-S2, no rub or gallop Abdomen is soft nontender nondistended positive bowel sounds no hepatosplenomegaly Extremities no edema Neuro alert and orientated to 3. Short-term memory intermittent confusion - Labs CBC & Chem 7: 07/30/19 07:08 07/30/19 07:08 Labs: Abnormal Lab Results - Last 24 Hours (Table) 07/30/19 07/30/19 07/31/19 Range/Units 11:33 16:44 07:08 POC Glucose (mg/dL) 123 H 101 H 109 H (75-99) mg/dL Microbiology - Last 24 Hours (Table) 07/29/19 13:15 Urine Culture - Preliminary Urine,Voided Group D Enterococcus Gram Neg Bacilli 07/29/19 15:01 Blood Culture - Preliminary Blood No Growth after 24 hours Assessment and Plan Assessment: 1. Metabolic encephalopathy secondary to urinary tract infection and possible pneumonia. Head CT completed showing age-related atrophic and chronic small vessel ischemic changes without acute intracranial process seen at this time. Psych consult placed for increased agitation. Per psychiatry services no indication for acute psychiatric treatment at this time. Patient would benefit from continued outpatient counseling in her psychotherapy patient plans to schedule appointment with her former therapist. 2. Urinary tract infection. UA positive for urinary tract infection urine culture ordered. Patient started on Zosyn. Urine culture growing group D enterococcus and gram-negative bacilli 3. Possible pneumonia.chest x-ray completed showing wedge-shaped density right upper lobe is noted this could reflect infiltrate however underlying mass is not excluded consider CT of the chest are further evaluation. Patient currently on Zosyn. pulmonary services will be consulted 4. possible dark tarry stools. Hemoglobin stable 12.9. stool negative for occult blood negative. Patient is on ferrous sulfate 5. history of coronary artery disease with previous heart cath 6. History of CVA 2009 patient does have some short-term memory problems right- sided dominant 7. History of essential hypertension Home medications resumed 8. History of myocardial infarction 9. History of anxiety and depression. Home medications resumed 10. Hypothyroidism. Sythroid resumed. TSH level 2.040 11. Diabetes mellitus type 2. Patient currently on metformin. Sliding scale insulin added. will hold Metformin due to possible computed tomography scan 12. Marijuana use. Patient states that she smokes marijuana daily. Will order drug screen 13. Acute on chronic kidney disease. creatinine elevated at 1.24 and bun 31. Continue normal saline at 80. Metformin will be held for possible computed tomography scan. Creatinine improving to 1.13 and bun 22 14. Diarrhea. Stool for cdiff ordered DVT prophylaxis heparin. GI prophylaxis Pepcid I performed an examination of the patient and discussed their management with the Nurse Practitioner. I have reviewed the Nurse Practitioner's notes and agree with the documented findings and plan of care <Heri Kaminski - Last Filed: 08/01/19 09:34> Objective - Vital Signs Vital signs: Vital Signs Temp 97.8 F 08/01/19 05:49 Pulse 55 L 08/01/19 05:49 Resp 16 08/01/19 05:49 BP 125/65 08/01/19 05:49 Pulse Ox 96 08/01/19 05:49 Intake & Output 07/31/19 08/01/19 08/01/19 18:59 06:59 18:59 Other: Voiding Method Toilet Toilet # Voids 2 2 - Labs CBC & Chem 7: 08/01/19 07:58 08/01/19 07:58 Labs: Abnormal Lab Results - Last 24 Hours (Table) 07/31/19 07/31/19 07/31/19 Range/Units 09:08 09:08 12:14 Hgb 11.2 L (11.4-16.0) gm/dL BUN 21 H (7-17) mg/dL Creatinine 1.52 H (0.52-1.04) mg/dL Glucose 148 H (74-99) mg/dL POC Glucose (mg/dL) 125 H (75-99) mg/dL Total Protein 6.2 L (6.3-8.2) g/dL 07/31/19 07/31/19 08/01/19 Range/Units 17:11 20:31 07:15 Hgb (11.4-16.0) gm/dL BUN (7-17) mg/dL Creatinine (0.52-1.04) mg/dL Glucose (74-99) mg/dL POC Glucose (mg/dL) 113 H 112 H 129 H (75-99) mg/dL Total Protein (6.3-8.2) g/dL 08/01/19 Range/Units 07:58 Hgb (11.4-16.0) gm/dL BUN 20 H (7-17) mg/dL Creatinine 1.36 H (0.52-1.04) mg/dL Glucose 119 H (74-99) mg/dL POC Glucose (mg/dL) (75-99) mg/dL Total Protein (6.3-8.2) g/dL Microbiology - Last 24 Hours (Table) 07/29/19 13:15 Urine Culture - Final Urine,Voided Enterococcus faecalis VRE Escherichia coli 07/29/19 15:01 Blood Culture - Preliminary Blood No Growth after 48 hours Assessment and Plan Assessment: chest CT result findings discussed with patient. Patient will follow up o utpatient with pulmonary for outpatient CT in 4-6 months
[2019-07-31 10:22] LABS: Albumin 3.6 g/dL (3.5-5.0); Calcium 9.5 mg/dL (8.4-10.2); Potassium 4.5 mmol/L (3.5-5.1); Total Bilirubin 0.3 mg/dL (0.2-1.3); Total Protein 6.2 g/dL (6.3-8.2)
[2019-07-31 10:37] LABS: Basophils # (A) 0.1 k/uL (0-0.2); Basophils % (A) 1 %; Eosinophils # (A) 0.2 k/uL (0-0.7); Eosinophils % (A) 2 %; HCT 34.6 % (34.0-46.0); HGB 11.2 gm/dL (11.4-16.0); Lymphocytes # (A) 2.1 k/uL (1.0-4.8); Lymphocytes % (A) 30 %; MCHC 32.5 g/dL (31.0-37.0); MCV 89.4 fL (80.0-100.0); Mean Platelet Volume 6.8; Monocytes # (A) 0.4 k/uL (0-1.0); Monocytes % (A) 6 %; Neutrophils # (A) 4.2 k/uL (1.3-7.7); Neutrophils % (A) 59 %; Platelet Count 289 k/uL (150-450); RBC 3.87 m/uL (3.80-5.40); RDW 13.5 % (11.5-15.5); WBC 7.1 k/uL (3.8-10.6)
[2019-07-31 12:26] LABS: Glucose,Whole Blood 125 mg/dL (75-99)
--- NOTE | 2019-07-31 12:38 | P.PN ---
Subjective Progress Note Date: 07/31/19 Principal diagnosis: Black tarry stools, diarrhea, dizziness. Wedge-shaped density in the right upper lobe. This is a 78-year-old white female patient of Dr. Kaminski, with previous history of coronary artery disease, previous CVA/TIA, hypertension, myocardial infarction, anxiety, depression, remote history of smoking, who came into the hospital on 07/29/2019 for evaluation of intermittent confusion, and several other complaints, that included black tarry stools for a period of 2 months, diarrhea, nausea, lack of appetite, dehydration, dizziness. Patient reports recent history of urinary tract infection, and was started on a course of oral cefuroxime, and she only has 3 more days left on it. Patient reports worsening diarrhea in the last day or so, nausea, a few episodes of vomiting, lack of appetite. She states she is currently on iron supplement, she has been seen by Dr. Kaminski in regards to the black tarry stools. Denied any fever or chills, she has occasional dry cough which is chronic, and she thinks he may be related to one of medications. No chest pain, no chest congestion, no phlegm production. No pleurisy no chills, no urinary complaints. She does report some mild left upper chest reproducible tenderness with palpation, near the axillary area, no change with deep breathing and coughing. Reports a remote history of smoking, over 30 years ago. No history of alcohol abuse. Chest x-ray was completed showing wedge-shaped density in the right upper lobe. Brain CT was negative. Lab work showed a CBC within normal limits, electrolytes were within normal limits, B1 is 31 and creatinine was 1.24, lactic acid was 1.2, LFTs were normal, ammonia level less than 9, CK was 34, lipase was 139, TSH was within normal limits, urinalysis showed large amount of leuks, and 49 and white blood cells, urine culture was sent, urine drug screen showed, benzodiazepines and marijuana. Patient does have prescribed Kismet. On today's exam patient is calm and comfortable, she is ambulating about the room, she had episode of diarrhea, she had been incontinent of stool, the stool was reportedly leg brown, with no blood in it, stool for occult blood was negative, hemoglobin is 12.1 today. No vomiting. Vital signs are stable, patient is awake and alert, oriented 3, she is answering questions appropriately. Culture is pending, she has been started on Zosyn, and IV 0.9 normal saline is infusing at a rate of 80 ML per hour. Denies any difficulty breathing, no cough or congestion, lung sounds reveal clear breath sounds bilaterally. The patient is seen today 07/31/2019 in follow-up on the regular medical floor. She is currently sitting up at the bedside. Awake and alert in no acute distress. No cough or congestion. Maintaining good O2 saturations in the mid 90s on room air. Afebrile. Hemodynamically stable. Urine culture positive for gram-negative bacilli and group D enterococcus. Blood culture shows no growth. White count 7.1. Hemoglobin 11.2. Creatinine 1.52. Remains on Zosyn. Unable to obtain computed tomography scan of the chest due to elevated creatinine. Objective - Vital Signs Vital signs: Vital Signs Temp 97.4 F L 07/31/19 04:42 Pulse 67 07/31/19 04:42 Resp 20 07/31/19 04:42 BP 124/65 07/31/19 04:42 Pulse Ox 98 07/31/19 04:42 Intake & Output 07/30/19 07/31/19 07/31/19 18:59 06:59 18:59 Intake Total 300 Balance 300 Weight 72.575 kg Intake: Oral 300 Other: Voiding Method Toilet Toilet # Voids 2 1 2 # Bowel Movements 1 - Exam GENERAL EXAM: Alert, active, comfortable in no apparent distress. On room air. HEAD: Normocephalic. EYES: Normal reaction of pupils, equal size. NOSE: Clear with pink turbinates. THROAT: No erythema or exudates. NECK: No masses, no JVD. CHEST: No chest wall deformity. LUNGS: Equal air entry with no crackles, wheeze, rhonchi or dullness. CVS: S1 and S2 normal with no audible murmur, regular rhythm. ABDOMEN: No hepatosplenomegaly, normal bowel sounds, no guarding or rigidity. SPINE: No scoliosis or deformity SKIN: No rashes CENTRAL NERVOUS SYSTEM: No focal deficits, tone is normal in all 4 extremities. EXTREMITIES: There is no peripheral edema. No clubbing, no cyanosis. Peripheral pulses are intact. - Labs CBC & Chem 7: 07/31/19 09:08 07/31/19 09:08 Labs: Abnormal Lab Results - Last 24 Hours (Table) 07/30/19 07/31/19 07/31/19 Range/Units 16:44 07:08 09:08 Hgb 11.2 L (11.4-16.0) gm/dL BUN (7-17) mg/dL Creatinine (0.52-1.04) mg/dL Glucose (74-99) mg/dL POC Glucose (mg/dL) 101 H 109 H (75-99) mg/dL Total Protein (6.3-8.2) g/dL 07/31/19 Range/Units 09:08 Hgb (11.4-16.0) gm/dL BUN 21 H (7-17) mg/dL Creatinine 1.52 H (0.52-1.04) mg/dL Glucose 148 H (74-99) mg/dL POC Glucose (mg/dL) (75-99) mg/dL Total Protein 6.2 L (6.3-8.2) g/dL Microbiology - Last 24 Hours (Table) 07/29/19 13:15 Urine Culture - Preliminary Urine,Voided Group D Enterococcus Gram Neg Bacilli 07/29/19 15:01 Blood Culture - Preliminary Blood No Growth after 24 hours Assessment and Plan Assessment: #1. Right upper lobe wedge-shaped density seen on the chest x-ray. Rule out malignancy or pneumonia. Creatinine 1.5 for today. Unable to obtain a computed tomography scan of the chest with contrast. #2. Acute kidney injury, likely related to diarrhea and dehydration #3. Recent urinary tract infection, on outpatient treatments with cefuroxime. Urine culture this admission positive for gram-negative bacilli and group D enterococcus. Currently on Zosyn. #4. Altered mental status likely related to dehydration, urinary tract infection, improved, brain CT showed no acute changes. Urine drug screen was positive for opiates, benzodiazepines and marijuana. #5. Acute diarrhea, rule out C. difficile colitis #6. Reported black tarry stools, occult is negative #7. Remote history of smoking, in remission for last 30 years #8. Anxiety/depression #9. Previous history of acute respiratory failure requiring intubation and mechanical ventilation related to pulmonary edema #10. Coronary artery disease, nonocclusive #11. Hypertension #12. Previous history of systolic dysfunction with an EF of 35-40%, with most recent echocardiogram showing improvement with an EF of 55-60%, mild aortic valve sclerosis, mild mitral and tricuspid regurgitation #13. Hypothyroidism Plan: The patient was seen and evaluated by Dr. Farnsworth. She is currently stable from the pulmonary standpoint. Creatinine remains elevated. Unable to obtain a computed tomography scan of the chest with contrast. Could consider follow-up chest x-ray versus computed tomography scan of chest without contrast. I, the cosigning physician, performed a history & physical examination of the patient. Lungs sounds are clear. Maintaining good O2 saturations in the 90s on room air. I discussed the assessment and plan of care with my nurse practitioner, Caroline Diaz. I attest to the above note as dictated by her.
--- NOTE | 2019-07-31 13:38 | XR ---
EXAMINATION TYPE: XR chest 1V portable DATE OF EXAM: 07/31/2019 COMPARISON: 07/29/2019 HISTORY: Right upper lobe opacity. TECHNIQUE: Single frontal view of the chest is obtained. FINDINGS: Unchanged right upper lobe opacity appears somewhat triangular in appearance and could rep resent scarring. Pulmonary hyperinflation of underlying COPD is again noted. Remainder the lungs are clear with no pleural effusion nor pneumothorax seen. The cardiac silhouette size is within normal l imits. The osseous structures are intact. IMPRESSION: Unchanged right upper lung opacity. This could represent scarring, airspace disease, or nodule. CT thorax could assess this finding.
--- NOTE | 2019-07-31 14:28 | CT ---
EXAMINATION TYPE: CT chest wo con DATE OF EXAM: 07/31/2019 COMPARISON: Chest x-ray 07/31/[address] 11/29/2017 HISTORY: RUL Opacity abnormal chest x-ray CT DLP: 243.6 mGycm. Automated Exposure Control for Dose Reduction was Utilized. TECHNIQUE: CT scan of the thorax is performed without IV contrast. FINDINGS: LUNGS: The lungs are remarkable for a pleural-based focus of increased attenuation in the right upper lobe corresponding to the chest x-ray abnormality, wedge-shaped area of increased attenuation shows a focal attachment at what is believed to be some focal pleural fat and measures approximately 1.3 x 1.9 x 1 cm. There is a pleural attachment seen at this level. Some minimal pleural thickening noted l aterally at the inferior margin of the major fissure on axial image 36 may represent postinflammatory change. Biapical pleural scarring is again noted. There is no pleural effusion or pneumothorax seen . The tracheobronchial tree is patent. MEDIASTINUM: Lack of IV contrast is noted to limit evaluation for mediastinal and especially hilar ad enopathy. There are no definitive greater than 1 cm hilar or mediastinal lymph nodes. No cardiomega ly or pericardial effusion is seen. There are some mild coronary calcifications. Focal lipoma is note d along the interatrial septum as on prior exam. OTHER: The patient is post cholecystectomy. Probable cortical cyst present lower pole left kidney jeffrey suring 2.7 cm is incompletely evaluated. IMPRESSION: Findings may represent a focal area of scarring, there is some local fat attenuation sugg esting benign etiology. Follow-up could be performed to assess for stability. Noncontrast exam. Addit ional findings above.
--- NOTE | 2019-07-31 15:16 | P.PN ---
Progress Note - Text Progress Note Date: 07/31/[address] of the chest on this patient, and the findings are more consistent with scarring in the right upper lobe, suggest repeat CT of the chest in the next 4-6 months. This could be done on outpatient basis.
[2019-07-31 17:23] LABS: Glucose,Whole Blood 113 mg/dL (75-99)
[2019-07-31 20:33] LABS: Glucose,Whole Blood 112 mg/dL (75-99)
[2019-07-31] MEDS: TEMAZEPAM 15 MG CAP PO PRN (21:51)
[2019-08-01] MEDS: PIPERACILLIN-TAZOBACTAM 3.375 GM in SODIUM CHLORIDE 0.9% 100 ML IVPB SCH ×4 (00:22→23:59)
[2019-08-01] MEDS: LEVOTHYROXINE 50 MCG TAB PO SCH (06:39)
[2019-08-01] MEDS: SODIUM CHLORIDE 0.9% 1,000 ML IV SCH ×2 (06:42→17:45)
[2019-08-01 07:19] LABS: Glucose,Whole Blood 129 mg/dL (75-99)
[2019-08-01] MEDS: INSULIN ASPART (NovoLOG) 100 UNIT/ML VIAL SQ SCH ×4 (07:22→21:51)
[2019-08-01] MEDS: PRAVASTATIN SODIUM 20 MG TAB PO SCH (08:21)
[2019-08-01] MEDS: HEPARIN SODIUM,PORCINE 5,000 UNIT/ML 1 ML VIAL SQ SCH ×2 (08:21→21:50)
[2019-08-01] MEDS: LACTOBACILLUS ACIDOPH & BULGAR 1 EACH PACKET PO SCH (08:22)
[2019-08-01] MEDS: METOPROLOL TARTRATE 25 MG TAB PO SCH (08:22)
[2019-08-01] MEDS: ASCORBIC ACID 500 MG TAB PO SCH (08:22)
[2019-08-01] MEDS: FUROSEMIDE 40 MG TAB PO SCH (08:22)
[2019-08-01] MEDS: MULTIVITAMINS, THERA 1 EACH TAB PO SCH (08:22)
[2019-08-01] MEDS: CHOLECALCIFEROL 1,000 UNIT TAB PO SCH (08:22)
[2019-08-01] MEDS: CYANOCOBALAMIN 500 MCG TAB PO SCH (08:22)
[2019-08-01] MEDS: ARIPiprazole 5 MG TAB PO SCH (08:22)
[2019-08-01] MEDS: POTASSIUM CHLORIDE ER 10 MEQ TAB.ER.PRT PO SCH (08:22)
[2019-08-01] MEDS: ZINC SULFATE 220 MG CAP PO SCH (08:22)
[2019-08-01] MEDS: MAGNESIUM OXIDE 400 MG TAB PO SCH ×2 (08:22→21:51)
[2019-08-01] MEDS: DULoxetine HCL 30 MG CAPSULE.DR PO SCH ×2 (08:23→21:50)
[2019-08-01] MEDS: ACETAMINOPHEN TAB 325 MG TAB PO PRN (08:33)
[2019-08-01 08:41] LABS: Basophils % (A) 0 %; Eosinophils # (A) 0.2 k/uL (0-0.7); Eosinophils % (A) 3 %; HCT 38.1 % (34.0-46.0); HGB 12.5 gm/dL (11.4-16.0); Lymphocytes # (A) 2.5 k/uL (1.0-4.8); Lymphocytes % (A) 37 %; MCH 29.5 pg (25.0-35.0); MCHC 32.7 g/dL (31.0-37.0); MCV 90.2 fL (80.0-100.0); Mean Platelet Volume 5.9; Monocytes # (A) 0.5 k/uL (0-1.0); Monocytes % (A) 8 %; Neutrophils # (A) 3.5 k/uL (1.3-7.7); Neutrophils % (A) 50 %; Platelet Count 323 k/uL (150-450); RBC 4.22 m/uL (3.80-5.40); RDW 13.3 % (11.5-15.5)
[2019-08-01 09:04] LABS: Albumin 4.2 g/dL (3.5-5.0); Calcium 9.9 mg/dL (8.4-10.2); Potassium 4.2 mmol/L (3.5-5.1); Total Bilirubin 0.4 mg/dL (0.2-1.3); Total Protein 7.1 g/dL (6.3-8.2)
[2019-08-01] MEDS: CALCIUM CARBONATE 500 MG CHEWABLE PO SCH (09:08)
[2019-08-01] MEDS: FAMOTIDINE 20 MG TAB PO SCH (09:08)
[2019-08-01] MEDS: ASPIRIN 81 MG PO SCH (09:08)
--- NOTE | 2019-08-01 10:10 | P.PN ---
Subjective Progress Note Date: 08/01/19 This is a 78-year-old female patient who presented with complaints of intermittent confusion. patient reports that she's had episodes of intermittent confusion of the past few days. Patient reports that she also had dark stools. Patient does appear to be a poor historian.patient reports she has been having intermittent cough unable to recall she's been having fevers. Patient does reports she smokes marijuana daily. patient does have a past medical history of coronary artery disease CVA, GERD, hypertension, myocardial infarction, anxiety and depression. chest x-ray showing wedge-shaped density right upper lobe is noted this could reflect infiltrate however underlying mass is not excluded consider CT of the chest for further evaluation. PET/CT completed showing age- related atrophic and chronic small vessel ischemic change without acute intracranial process seen at this time. EKG completed showing sinus rhythm with first-degree AV block with premature atrial complexes. UA showing large amount of leukocyte Estrace. Urine culture ordered. Patient started on Zosyn. Stool for occult negative.lactic acid 1.2.urine culture ordered. Patient started on Zosyn. On 07/30/2019 patient is alert and oriented 3. Patient reports she is starting to feel improved. Patient did have increased confusion with agitation yesterday evening. Ativan ordered psych consult placed. Patient remains on Zosyn. Patient also reports that she is having loose stool. Stool for C. diff has been ordered. Pulmonary service is consulted for possible pulmonary nodule versus pneumonia. At this time patient denies chest pain or shortness of breath. Patient denies nausea or vomiting. Patient denies any urinary burning or frequency On 07/31/2019 patient's alert and oriented 3. Patient reports she is feeling improved. Patient remains on Zosyn for antibiotic. Possible computed tomography scan today per pulmonary. Stool for C. diff has been ordered but diarrhea has subsided. Urine culture currently growing group D enterococcus gram-negative bacilli. Patient's son Reji called per patient request yesterday and questions answered. Patient denies chest pain or shortness of breath. Patient denies nausea vomiting or diarrhea. Patient denies any urinary burning or frequency. On 08/01/2019, patient is sitting up in bed, alert and oriented 3 and patient reports feeling better. And culture resulted, showing E. coli and VRE. WBC 7.0. Afebrile. Urine culture results discussed with patient. CT chest without contrast completed yesterday. Dr. Farnsworth discussed results with patient. Recommended following up outpatient with another scan in 4-6 months. Patient reports having normal bowel movement, no diarrhea. Patient denies chest pain or shortness of breath. Denies any urinary burning or frequeny. Objective - Vital Signs Vital signs: Vital Signs Temp 97.8 F 08/01/19 05:49 Pulse 55 L 08/01/19 05:49 Resp 16 08/01/19 05:49 BP 125/65 08/01/19 05:49 Pulse Ox 96 08/01/19 05:49 Intake & Output 07/31/19 08/01/19 08/01/19 18:59 06:59 18:59 Other: Voiding Method Toilet Toilet # Voids 2 2 1 - Exam Head normocephalic Neck supple Lungs clear to auscultation bilaterally no wheezing or crackles Heart regular rate and rhythm S1-S2, no rub or gallop Abdomen is soft nontender nondistended positive bowel sounds no hepatosplenomegaly Extremities no edema Neuro alert and orientated to 3. Short-term memory intermittent confusion - Labs CBC & Chem 7: 08/01/19 07:58 08/01/19 07:58 Labs: Abnormal Lab Results - Last 24 Hours (Table) 07/31/19 07/31/19 07/31/19 Range/Units 09:08 09:08 12:14 Hgb 11.2 L (11.4-16.0) gm/dL BUN 21 H (7-17) mg/dL Creatinine 1.52 H (0.52-1.04) mg/dL Glucose 148 H (74-99) mg/dL POC Glucose (mg/dL) 125 H (75-99) mg/dL Total Protein 6.2 L (6.3-8.2) g/dL 07/31/19 07/31/19 08/01/19 Range/Units 17:11 20:31 07:15 Hgb (11.4-16.0) gm/dL BUN (7-17) mg/dL Creatinine (0.52-1.04) mg/dL Glucose (74-99) mg/dL POC Glucose (mg/dL) 113 H 112 H 129 H (75-99) mg/dL Total Protein (6.3-8.2) g/dL 08/01/19 Range/Units 07:58 Hgb (11.4-16.0) gm/dL BUN 20 H (7-17) mg/dL Creatinine 1.36 H (0.52-1.04) mg/dL Glucose 119 H (74-99) mg/dL POC Glucose (mg/dL) (75-99) mg/dL Total Protein (6.3-8.2) g/dL Microbiology - Last 24 Hours (Table) 07/29/19 13:15 Urine Culture - Final Urine,Voided Enterococcus faecalis VRE Escherichia coli 07/29/19 15:01 Blood Culture - Preliminary Blood No Growth after 48 hours Assessment and Plan Assessment: 1. Metabolic encephalopathy secondary to urinary tract infection and possible pneumonia. Head CT completed showing age-related atrophic and chronic small vessel ischemic changes without acute intracranial process seen at this time. Psych consult placed for increased agitation. Per psychiatry services no indication for acute psychiatric treatment at this time. Patient would benefit from continued outpatient counseling in her psychotherapy patient plans to schedule appointment with her former therapist. 2. Urinary tract infection. UA positive for urinary tract infection urine culture ordered. Patient started on Zosyn. Urine culture resulted showing enterococcus faecalis VRE, E. coli. 3. Possible pneumonia.chest x-ray completed showing wedge-shaped density right upper lobe is noted this could reflect infiltrate however underlying mass is not excluded consider CT of the chest are further evaluation. Patient currently on Zosyn. CT chest without contrast completed yesterday. Findings represent a focal area of scarring, and local fat attenuation suggesting benign etiology. Dr. farnsworth discussed the results with patient. Repeat scan in 4-6 month outpatient. 4. possible dark tarry stools. Hemoglobin stable 12.9. stool negative for occult blood negative. Patient is on ferrous sulfate 5. history of coronary artery disease with previous heart cath 6. History of CVA 2009 patient does have some short-term memory problems right- sided dominant 7. History of essential hypertension Home medications resumed. 8. History of myocardial infarction 9. History of anxiety and depression. Home medications resumed 10. Hypothyroidism. Sythroid resumed. TSH level 2.040 11. Diabetes mellitus type 2. Patient currently on metformin. Sliding scale insulin added. 12. Marijuana use. Patient states that she smokes marijuana daily. Will order drug screen 13. Acute on chronic kidney disease. creatinine elevated at 1.24 and bun 31. Continue normal saline at 80. Continue to hold metformin. Creatinine 1.36 from 1.52. BUN 20. Hold lisinopril. 14. Diarrhea. Stool for cdiff ordered but was never sent. Diarrhea has subsided DVT prophylaxis heparin. GI prophylaxis Pepcid I performed an examination of the patient and discussed their management with the Nurse Practitioner. I have reviewed the Nurse Practitioner's notes and agree with the documented findings and plan of care
--- NOTE | 2019-08-01 11:19 | P.PN ---
Subjective Progress Note Date: 08/01/19 Principal diagnosis: Black tarry stools, diarrhea, dizziness. Wedge-shaped density in the right upper lobe. This is a 78-year-old white female patient of Dr. Kaminski, with previous history of coronary artery disease, previous CVA/TIA, hypertension, myocardial infarction, anxiety, depression, remote history of smoking, who came into the hospital on 07/29/2019 for evaluation of intermittent confusion, and several other complaints, that included black tarry stools for a period of 2 months, diarrhea, nausea, lack of appetite, dehydration, dizziness. Patient reports recent history of urinary tract infection, and was started on a course of oral cefuroxime, and she only has 3 more days left on it. Patient reports worsening diarrhea in the last day or so, nausea, a few episodes of vomiting, lack of appetite. She states she is currently on iron supplement, she has been seen by Dr. Kaminski in regards to the black tarry stools. Denied any fever or chills, she has occasional dry cough which is chronic, and she thinks he may be related to one of medications. No chest pain, no chest congestion, no phlegm production. No pleurisy no chills, no urinary complaints. She does report some mild left upper chest reproducible tenderness with palpation, near the axillary area, no change with deep breathing and coughing. Reports a remote history of smoking, over 30 years ago. No history of alcohol abuse. Chest x-ray was completed showing wedge-shaped density in the right upper lobe. Brain CT was negative. Lab work showed a CBC within normal limits, electrolytes were within normal limits, B1 is 31 and creatinine was 1.24, lactic acid was 1.2, LFTs were normal, ammonia level less than 9, CK was 34, lipase was 139, TSH was within normal limits, urinalysis showed large amount of leuks, and 49 and white blood cells, urine culture was sent, urine drug screen showed, benzodiazepines and marijuana. Patient does have prescribed [place]. On today's exam patient is calm and comfortable, she is ambulating about the room, she had episode of diarrhea, she had been incontinent of stool, the stool was reportedly leg brown, with no blood in it, stool for occult blood was negative, hemoglobin is 12.1 today. No vomiting. Vital signs are stable, patient is awake and alert, oriented 3, she is answering questions appropriately. Culture is pending, she has been started on Zosyn, and IV 0.9 normal saline is infusing at a rate of 80 ML per hour. Denies any difficulty breathing, no cough or congestion, lung sounds reveal clear breath sounds bilaterally. The patient is seen today 07/31/2019 in follow-up on the regular medical floor. She is currently sitting up at the bedside. Awake and alert in no acute distress. No cough or congestion. Maintaining good O2 saturations in the mid 90s on room air. Afebrile. Hemodynamically stable. Urine culture positive for gram-negative bacilli and group D enterococcus. Blood culture shows no growth. White count 7.1. Hemoglobin 11.2. Creatinine 1.52. Remains on Zosyn. Unable to obtain computed tomography scan of the chest due to elevated creatinine. The patient is seen today 08/01/2019 in follow-up on the regular medical floor. She is awake and alert in no acute distress. No shortness of breath, cough or c ongestion. No fever, chills or night sweats. On room air. Afebrile. Hemodynamically stable. CAT scan of the chest without contrast revealed scarring in the right upper lobe. Plan is to follow-up CAT scan in 4-6 months. Urine is positive for Enterococcus faecalis VRE and E. coli. White count 10.0. Hemoglobin 12.5. Creatinine 1.36. Currently on Zosyn. Objective - Vital Signs Vital signs: Vital Signs Temp 98.6 F 08/01/19 10:02 Pulse 63 08/01/19 10:02 Resp 16 08/01/19 10:22 BP 113/64 08/01/19 10:02 Pulse Ox 99 08/01/19 10:02 Intake & Output 07/31/19 08/01/19 08/01/19 18:59 06:59 18:59 Other: Voiding Method Toilet Toilet # Voids 2 2 1 - Exam GENERAL EXAM: Alert, pleasant 78-year-old female patient, comfortable in no apparent distress. On room air. HEAD: Normocephalic. EYES: Normal reaction of pupils, equal size. NOSE: Clear with pink turbinates. THROAT: No erythema or exudates. NECK: No masses, no JVD. CHEST: No chest wall deformity. LUNGS: Equal air entry with no crackles, wheeze, rhonchi or dullness. CVS: S1 and S2 normal with no audible murmur, regular rhythm. ABDOMEN: No hepatosplenomegaly, normal bowel sounds, no guarding or rigidity. SPINE: No scoliosis or deformity SKIN: No rashes CENTRAL NERVOUS SYSTEM: No focal deficits, tone is normal in all 4 extremities. EXTREMITIES: There is no peripheral edema. No clubbing, no cyanosis. Peripheral pulses are intact. - Labs CBC & Chem 7: 08/01/19 07:58 08/01/19 07:58 Labs: Abnormal Lab Results - Last 24 Hours (Table) 07/31/19 07/31/19 07/31/19 Range/Units 12:14 17:11 20:31 BUN (7-17) mg/dL Creatinine (0.52-1.04) mg/dL Glucose (74-99) mg/dL POC Glucose (mg/dL) 125 H 113 H 112 H (75-99) mg/dL 08/01/19 08/01/19 Range/Units 07:15 07:58 BUN 20 H (7-17) mg/dL Creatinine 1.36 H (0.52-1.04) mg/dL Glucose 119 H (74-99) mg/dL POC Glucose (mg/dL) 129 H (75-99) mg/dL Microbiology - Last 24 Hours (Table) 07/29/19 13:15 Urine Culture - Final Urine,Voided Enterococcus faecalis VRE Escherichia coli 07/29/19 15:01 Blood Culture - Preliminary Blood No Growth after 48 hours Assessment and Plan Assessment: #1. Right upper lobe wedge-shaped density seen on the chest x-ray. CAT scan of the chest without contrast revealed evidence of scarring. Follow-up CAT scan in 4-6 months. #2. Acute kidney injury, likely related to diarrhea and dehydration , current creatinine 1.36 #3. Recent urinary tract infection, on outpatient treatments with cefuroxime. Urine culture this admission positive for Enterococcus faecalis VRE, E. coli. Currently on Zosyn. #4. Altered mental status likely related to dehydration, urinary tract infection, improved, brain CT showed no acute changes. Urine drug screen was positive for opiates, benzodiazepines and marijuana. #5. Acute diarrhea, rule out C. difficile colitis #6. Reported black tarry stools, occult is negative #7. Remote history of smoking, in remission for last 30 years #8. Anxiety/depression #9. Previous history of acute respiratory failure requiring intubation and mechanical ventilation related to pulmonary edema #10. Coronary artery disease, nonocclusive #11. Hypertension #12. Previous history of systolic dysfunction with an EF of 35-40%, with most recent echocardiogram showing improvement with an EF of 55-60%, mild aortic valve sclerosis, mild mitral and tricuspid regurgitation #13. Hypothyroidism Plan: The patient was seen and evaluated by Dr. Farnsworth. She is currently stable from the pulmonary standpoint. She'll follow-up in our office in 1-2 weeks' time. The plan is for repeat CAT scan of the chest in 4-6 months. We'll see as needed. I, the cosigning physician, performed a history & physical examination of the patient. Lungs sounds are clear. Maintaining good O2 saturations in the 90s on room air. I discussed the assessment and plan of care with my nurse practitioner, Caroline Diaz. I attest to the above note as dictated by her.
[2019-08-01 12:34] LABS: Glucose,Whole Blood 112 mg/dL (75-99)
[2019-08-01 16:56] LABS: Glucose,Whole Blood 85 mg/dL (75-99)
[2019-08-01 19:06] LABS: Appearance,Urine Clear (Clear); Bilirubin,Urine Negative (Negative); Blood,Urine Negative (Negative); Color,Urine Light Yellow; Glucose,Urine (UA) Negative (Negative); Hyaline Casts,Urine 1 /lpf (0-2); Ketones,Urine Negative (Negative); Leukocyte Esterase,Urine Small (Negative); Mucus,Urine Rare /hpf; Nitrite,Urine Negative (Negative); Protein,Urine Negative (Negative); RBC,Urine 2 /hpf (0-5); Specific Gravity,Urine 1.013 (1.001-1.035); Urobilinogen,Urine <2.0 mg/dL (<2.0)
[2019-08-01 20:50] LABS: Glucose,Whole Blood 115 mg/dL (75-99)
[2019-08-01 21:37] LABS: Appearance,Urine Clear (Clear); Bilirubin,Urine Negative (Negative); Blood,Urine Negative (Negative); Color,Urine Yellow; Glucose,Urine (UA) Negative (Negative); Ketones,Urine Negative (Negative); Leukocyte Esterase,Urine Negative (Negative); Nitrite,Urine Negative (Negative); Protein,Urine Negative (Negative); Specific Gravity,Urine 1.018 (1.001-1.035); Urobilinogen,Urine <2.0 mg/dL (<2.0)
[2019-08-01] MEDS: TEMAZEPAM 15 MG CAP PO PRN (22:27)
[2019-08-02] MEDS: SODIUM CHLORIDE 0.9% 1,000 ML IV SCH (06:02)
[2019-08-02] MEDS: LEVOTHYROXINE 50 MCG TAB PO SCH (06:02)
[2019-08-02 07:11] LABS: Glucose,Whole Blood 123 mg/dL (75-99)
[2019-08-02] MEDS: INSULIN ASPART (NovoLOG) 100 UNIT/ML VIAL SQ SCH ×2 (07:31→12:48)
[2019-08-02] MEDS: CHOLECALCIFEROL 1,000 UNIT TAB PO SCH (07:36)
[2019-08-02] MEDS: LACTOBACILLUS ACIDOPH & BULGAR 1 EACH PACKET PO SCH (07:37)
[2019-08-02] MEDS: CALCIUM CARBONATE 500 MG CHEWABLE PO SCH (07:37)
[2019-08-02] MEDS: ASCORBIC ACID 500 MG TAB PO SCH (07:37)
[2019-08-02] MEDS: POTASSIUM CHLORIDE ER 10 MEQ TAB.ER.PRT PO SCH (07:37)
[2019-08-02] MEDS: CYANOCOBALAMIN 500 MCG TAB PO SCH (07:37)
[2019-08-02] MEDS: MULTIVITAMINS, THERA 1 EACH TAB PO SCH (07:37)
[2019-08-02] MEDS: DULoxetine HCL 30 MG CAPSULE.DR PO SCH (07:37)
[2019-08-02] MEDS: MAGNESIUM OXIDE 400 MG TAB PO SCH (07:37)
[2019-08-02] MEDS: ZINC SULFATE 220 MG CAP PO SCH (07:37)
[2019-08-02] MEDS: METOPROLOL TARTRATE 25 MG TAB PO SCH (07:37)
[2019-08-02] MEDS: FAMOTIDINE 20 MG TAB PO SCH (07:37)
[2019-08-02] MEDS: PRAVASTATIN SODIUM 20 MG TAB PO SCH (07:37)
[2019-08-02] MEDS: PIPERACILLIN-TAZOBACTAM 3.375 GM in SODIUM CHLORIDE 0.9% 100 ML IVPB SCH (07:38)
[2019-08-02] MEDS: ARIPiprazole 5 MG TAB PO SCH (07:38)
[2019-08-02] MEDS: ASPIRIN 81 MG PO SCH (07:38)
[2019-08-02] MEDS: HEPARIN SODIUM,PORCINE 5,000 UNIT/ML 1 ML VIAL SQ SCH (07:38)
[2019-08-02] MEDS: ACETAMINOPHEN TAB 325 MG TAB PO PRN (07:46)
--- NOTE | 2019-08-02 08:25 | P.CONS ---
History of Present Illness - Reason for Consult Consult date: 08/01/19 Urinary tract infection Requesting physician: Heri Kaminski - Chief Complaint Weakness and confusion few days before admission - History of Present Illness Patient is a 78-year-old female who apparently recently were diagnosed in outpatient setting with UTI and was treated with the Ceftin patient was brought into the hospital on 07/29/2019 for evaluation of intermittent confusion patient complaining of not feeling well organized any headache high-grade fever occasional chills no chest pain or shortness of breath very minimal cough which has been dry with no recent worsening or sputum production no nausea no vomiting and choking on the fourth abdominal pain or any diarrhea denies any burning or frequency of urine on presentation the hospital the patient was if Her white count was normal hearing was mildly positive chest x-ray with right upper lobe wedge-shaped deformity patient has been treated with the Zosyn, the patient did have a CT of the chest without any contrast this morning which did shows possible scarring did not show any evidence of inflammation or pneumonia the patient urine culture getting finalized with a VRE and E. 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 Last Myocardial Infarction Date:: 2016 History of Any Multi-Drug Resistant Organisms: VRE Year Discovered:: 07/29/19 MDRO Source:: VRE URINE Past Surgical History: Cholecystectomy, Heart Catheterization, Hysterectomy, Joint Replacement, Tonsillectomy, Tubal Ligation Additional Past Surgical History / Comment(s): Thyroidectomy d/t benign nodules, R total knee arthroplasty. Past Anesthesia/Blood Transfusion Reactions: No Reported Reaction Smoking Status: Former smoker - Past Family History Father Family Medical History: Myocardial Infarction (CO), Vascular Disorder Additional Family Medical History / Comment(s): Father had depression and of suicide. He had poor circulation, etoh abuse. Mother Additional Family Medical History / Comment(s): pacemaker Medications and Allergies Home Medications Medication Instructions Recorded Confirmed Type DULoxetine HCL [Cymbalta] 30 mg PO BID 04/12/16 07/29/19 History Pravastatin Sodium [Pravachol] 20 mg PO DAILY 04/12/16 07/29/19 History Levothyroxine Sodium 50 mcg PO DAILY 05/19/16 07/29/19 History Nitroglycerin Sl Tabs [Nitrostat] 0.4 mg PO Q5M PRN 05/19/16 07/29/19 History Lisinopril [Zestril] 5 mg PO DAILY 11/29/17 07/29/19 History Metoprolol Tartrate [Lopressor] 25 mg PO DAILY 11/29/17 07/29/19 History Aspirin EC [Ecotrin Low Dose] 81 mg PO DAILY 07/24/18 07/29/19 History Biotin 10 mg PO DAILY 07/24/18 07/29/19 History Furosemide [Lasix] 40 mg PO DAILY 07/24/18 07/29/19 History Garlic 1 tab PO BID 07/24/18 07/29/19 History Multivitamin [Multivitamins Adult 3 tab PO DAILY 07/24/18 07/29/19 History Gummies] Omeprazole [PriLOSEC] 20 mg PO AC-BID 07/24/18 07/29/19 History Ondansetron [Zofran ODT] 4 mg PO Q8H PRN 07/24/18 07/29/19 History metFORMIN HCL [Glucophage] 500 mg PO DAILY 07/24/18 07/29/19 History ARIPiprazole [Abilify] 5 mg PO DAILY 07/29/19 07/29/19 History Calcium Carbonate/Vitamin D3 1 tab PO DAILY 07/29/19 07/29/19 History [Calcium 500-Vit D3 200 Tablet] Cefuroxime Axetil [Ceftin] 500 mg PO BID 07/29/19 07/29/19 History HYDROcodone/APAP 5-325MG [[place] 1 tab PO BID PRN 07/29/19 07/29/19 History 5-325] Melatonin 10 mg PO HS PRN 07/29/19 07/29/19 History Allergies Allergy/AdvReac Type Severity Reaction Status Date / Time morphine AdvReac Chest Pain Verified 07/29/19 16:27 Physical Exam Vitals: Vital Signs Temp Pulse Resp BP Pulse Ox 08/01/19 13:15 98.4 F 68 16 115/60 96 08/01/19 12:20 97.6 F 63 20 96/61 97 08/01/19 10:22 16 08/01/19 10:02 98.6 F 63 16 113/64 99 08/01/19 05:49 97.8 F 55 L 16 125/65 96 07/31/19 20:00 98.0 F 60 17 97/51 96 Intake and Output 08/01/19 08/01/19 08/01/19 06:59 14:59 22:59 Other: # Voids 2 2 Weight 72.575 kg GENERAL DESCRIPTION: An elderly female lying in bed, no distress. No tachypnea or accessory muscle of respiration use. HEENT: Shows Pallor , no scleral icterus. Oral mucous membrane is dry. No pharyngeal erythema or thrush NECK: Trachea central, no thyromegaly. LUNGS: Unlabored breathing. Clear to auscultation anteriorly. No wheeze or crackle. HEART: S1, S2, regular rate and rhythm. No loud murmur ABDOMEN: Soft, no tenderness , guarding or rigidity, no organomegaly EXTREMITIES: No edema of feet. SKIN: No rash, no masses palpable. NEUROLOGICAL: The patient is awake, alert, oriented x3, mood and affect normal. Results CBC & Chem 7: 08/01/19 07:58 08/01/19 07:58 Labs: Abnormal Lab Results - Last 24 Hours (Table) 07/31/19 08/01/19 08/01/19 Range/Units 20:31 07:15 07:58 BUN 20 H (7-17) mg/dL Creatinine 1.36 H (0.52-1.04) mg/dL Glucose 119 H (74-99) mg/dL POC Glucose (mg/dL) 112 H 129 H (75-99) mg/dL 08/01/19 Range/Units 12:20 BUN (7-17) mg/dL Creatinine (0.52-1.04) mg/dL Glucose (74-99) mg/dL POC Glucose (mg/dL) 112 H (75-99) mg/dL Microbiology - Last 24 Hours (Table) 07/29/19 15:01 Blood Culture - Preliminary Blood No Growth after 72 hours 07/29/19 13:15 Urine Culture - Final Urine,Voided Enterococcus faecalis VRE Escherichia coli Assessment and Plan Assessment: 1-patient with a positive urine culture showing 50-100,000 colonies of VRE and E. coli with less colony Count in this patient currently with no urinary symptoms of any burning or frequency patient with no fever or elevated white count more likely colonization versus contamination clinically doubt symptomatic urinary tract infection [id number] abnormality on the chest x-ray with the CT and without any contrast was possible scarring no evidence of any pneumonia (1) Urinary tract infection Current Visit: Yes Status: Acute Code(s): N39.0 - URINARY TRACT INFECTION, SITE NOT SPECIFIED SNOMED Code(s): 37360489 Plan: 1-we will obtain a clean-catch UA and culture if indicated 2-discontinue daptomycin as clinically doubt symptomatic urinary tract infection We will follow on clinical condition and cultures to further adjust medication i f needed Thank you for this consultation will follow this patient with you
[2019-08-02 08:38] VITALS: RESP 16; TEMP 97.7
[2019-08-02 09:14] LABS: Basophils % (A) 0 %; Eosinophils # (A) 0.2 k/uL (0-0.7); Eosinophils % (A) 3 %; HCT 33.9 % (34.0-46.0); HGB 11.3 gm/dL (11.4-16.0); Lymphocytes # (A) 2.2 k/uL (1.0-4.8); Lymphocytes % (A) 32 %; MCH 29.4 pg (25.0-35.0); MCHC 33.3 g/dL (31.0-37.0); MCV 88.5 fL (80.0-100.0); Mean Platelet Volume 5.8; Monocytes # (A) 0.5 k/uL (0-1.0); Monocytes % (A) 7 %; Neutrophils # (A) 3.6 k/uL (1.3-7.7); Neutrophils % (A) 54 %; Platelet Count 290 k/uL (150-450); RBC 3.83 m/uL (3.80-5.40); RDW 13.1 % (11.5-15.5); WBC 6.7 k/uL (3.8-10.6)
[2019-08-02 09:27] LABS: Albumin 3.8 g/dL (3.5-5.0); Calcium 9.5 mg/dL (8.4-10.2); Potassium 3.9 mmol/L (3.5-5.1); Total Bilirubin 0.3 mg/dL (0.2-1.3); Total Protein 6.5 g/dL (6.3-8.2)
[2019-08-02 12:17] LABS: Glucose,Whole Blood 142 mg/dL (75-99)
[2019-08-02 13:34] VITALS: BP 115/62; PULSE 65
--- NOTE | 2019-08-02 13:53 | PN ---
PROGRESS NOTE DATE OF SERVICE: 08/02/2019 REASON FOR FOLLOWUP: Urinary tract infection. INTERVAL HISTORY: The patient is currently afebrile. The patient is breathing comfortably. The patient denies having any chest pain or shortness of breath or cough. No abdominal pain or any diarrhea. PHYSICAL EXAMINATION: Blood pressure 128/74, pulse of 67, temperature is 97.7. She is 100% on room air. General description is an elderly female up in the chair in no distress. RESPIRATORY SYSTEM: Unlabored breathing, clear to auscultation anteriorly. HEART: S1, S2. Regular rate and rhythm. ABDOMEN: Soft, no tenderness. LABS: Hemoglobin is 11.3, white count 6.7, BUN of 20, creatinine 1.31. DIAGNOSTIC IMPRESSION AND PLAN: Patient with positive urine cultures, low colony count with a VRE and possible contamination or colonization. The patient's repeat UA has been negative without getting treatment for those pathogens. The patient is currently asymptomatic with repeat UA negative. No need for any antibiotic on discharge. This was discussed in detail with the nurse practitioner for admitting team. MMODL / IJN: [id number] /
--- NOTE | 2019-08-02 15:04 | P.DS ---
Providers Date of admission: 07/29/19 14:33 Expected date of discharge: 08/02/19 Attending physician: Heri Kaminski Consults: 07/29/19 15:15 Consult Physician Routine Consulting Provider: Jossie Farnsworth Consult Reason/Comments: Possible infiltrate versus underlying mass seen on chest x-ray Do you want consulting provider notified?: Yes 07/29/19 16:42 Consult Physician Routine Consulting Provider: Meet Lim Consult Reason/Comments: confusion, agitiation Do you want consulting provider notified?: Yes 08/01/19 13:18 Consult Physician Routine Consulting Provider: Bentley Collado Consult Reason/Comments: VRE in urine Do you want consulting provider notified?: Yes Primary care physician: Heri Kaminski Hospital Course: Discharge diagnosis 1. Metabolic encephalopathy secondary to urinary tract infection and possible pneumonia. Head CT completed showing age-related atrophic and chronic small vessel ischemic changes without acute intracranial process seen at this time. Psych consult placed for increased agitation. Per psychiatry services no indication for acute psychiatric treatment at this time. Patient would benefit from continued outpatient counseling in her psychotherapy patient plans to schedule appointment with her former therapist. Symptoms have resolved 2. Urinary tract infection. UA positive for urinary tract infection urine culture ordered. Patient started on Zosyn. Urine culture resulted showing enterococcus faecalis VRE, E. coli. Discussed case with Dr. Collado per infectious disease no need for antibiotics VRE Colonization 3. Possible pneumonia.chest x-ray completed showing wedge-shaped density right upper lobe is noted this could reflect infiltrate however underlying mass is not excluded consider CT of the chest are further evaluation. Patient currently on Zosyn. CT chest without contrast completed yesterday. Findings represent a focal area of scarring, and local fat attenuation suggesting benign etiology. Dr. farnsworth discussed the results with patient. Repeat scan in 4-6 month outpatient. No findings of pneumonia per pulmonary. No need for antibiotics at discharge 4. possible dark tarry stools. Hemoglobin stable 12.9. stool negative for occult blood negative. Patient is on ferrous sulfate 5. history of coronary artery disease with previous heart cath 6. History of CVA 2009 patient does have some short-term memory problems right- sided dominant 7. History of essential hypertension Home medications resumed. 8. History of myocardial infarction 9. History of anxiety and depression. Home medications resumed 10. Hypothyroidism. Sythroid resumed. TSH level 2.040 11. Diabetes mellitus type 2. Patient currently on metformin. Sliding scale insulin added. 12. Marijuana use. Patient states that she smokes marijuana daily. Will order drug screen 13. Acute on chronic kidney disease. creatinine elevated at 1.24 and bun 31. Continue normal saline at 80. Continue to hold metformin. Creatinine 1.36 from 1.52. BUN 20. Hold lisinopril. Creatinine improving to 1.31 and bun 20. Patient will resume home medications will follow-up his PCP for further manage ment repeat CMP ordered for 3 days 14. Diarrhea. Stool for cdiff ordered but was never sent. Diarrhea has subsided Hospital course This is a 78-year-old female patient who presented with complaints of intermittent confusion. patient reports that she's had episodes of intermittent confusion of the past few days. Patient reports that she also had dark stools. Patient does appear to be a poor historian.patient reports she has been having intermittent cough unable to recall she's been having fevers. Patient does reports she smokes marijuana daily. patient does have a past medical history of coronary artery disease CVA, GERD, hypertension, myocardial infarction, anxiety and depression. chest x-ray showing wedge-shaped density right upper lobe is noted this could reflect infiltrate however underlying mass is not excluded consider CT of the chest for further evaluation. PET/CT completed showing age- related atrophic and chronic small vessel ischemic change without acute intracranial process seen at this time. EKG completed showing sinus rhythm with first-degree AV block with premature atrial complexes. UA showing large amount of leukocyte Estrace. Urine culture ordered. Patient started on Zosyn. Stool for occult negative.lactic acid 1.2.urine culture ordered. Patient started on Zosyn. On 07/30/2019 patient is alert and oriented 3. Patient reports she is starting to feel improved. Patient did have increased confusion with agitation yesterday evening. Ativan ordered psych consult placed. Patient remains on Zosyn. Patient also reports that she is having loose stool. Stool for C. diff has been ordered. Pulmonary service is consulted for possible pulmonary nodule versus pneumonia. At this time patient denies chest pain or shortness of breath. Patient denies nausea or vomiting. Patient denies any urinary burning or frequency On 07/31/2019 patient's alert and oriented 3. Patient reports she is feeling improved. Patient remains on Zosyn for antibiotic. Possible computed tomography scan today per pulmonary. Stool for C. diff has been ordered but diarrhea has subsided. Urine culture currently growing group D enterococcus gram-negative bacilli. Patient's son Reji called per patient request yesterday and questions answered. Patient denies chest pain or shortness of breath. Patient denies nausea vomiting or diarrhea. Patient denies any urinary burning or frequency. On 08/01/2019, patient is sitting up in bed, alert and oriented 3 and patient reports feeling better. And culture resulted, showing E. coli and VRE. WBC 7.0. Afebrile. Urine culture results discussed with patient. CT chest without contrast completed yesterday. Dr. Farnsworth discussed results with patient. Recommended following up outpatient with another scan in 4-6 months. Patient reports having normal bowel movement, no diarrhea. Patient denies chest pain or shortness of breath. Denies any urinary burning or frequeny. On 08/02/2019 patient's alert and oriented 3. Patient has been ambulating need for home care. Discussed case with Dr. Collado no need for antibiotics. Likely colonization. Patient remains afebrile white blood cells within normal limits. Patient denies chest pain or shortness breath. Patient denies nausea vomiting or diarrhea. Patient denies any urinary burning or frequency. Patient to follow-up with pulmonary services for outpatient CT. I performed an examination of the patient and discussed their management with the Nurse Practitioner. I have reviewed the Nurse Practitioner's notes and agree with the documented findings and plan of care Patient Condition at Discharge: Stable Plan - Discharge Summary Discharge Rx Participant: Yes New Discharge Prescriptions: Continue Pravastatin Sodium [Pravachol] 20 mg PO DAILY DULoxetine HCL [Cymbalta] 30 mg PO BID Nitroglycerin Sl Tabs [Nitrostat] 0.4 mg PO Q5M PRN PRN Reason: Chest Pain Levothyroxine Sodium 50 mcg PO DAILY Metoprolol Tartrate [Lopressor] 25 mg PO DAILY Lisinopril [Zestril] 5 mg PO DAILY Furosemide [Lasix] 40 mg PO DAILY Biotin 10 mg PO DAILY Omeprazole [PriLOSEC] 20 mg PO AC-BID Multivitamin [Multivitamins Adult Gummies] 3 tab PO DAILY Aspirin EC [Ecotrin Low Dose] 81 mg PO DAILY Garlic 1 tab PO BID metFORMIN HCL [Glucophage] 500 mg PO DAILY Ondansetron [Zofran ODT] 4 mg PO Q8H PRN PRN Reason: Nausea Calcium Carbonate/Vitamin D3 [Calcium 500-Vit D3 200 Tablet] 1 tab PO DAILY HYDROcodone/APAP 5-325MG [[place] 5-325] 1 tab PO BID PRN PRN Reason: Pain ARIPiprazole [Abilify] 5 mg PO DAILY Melatonin 10 mg PO HS PRN PRN Reason: SLEEP Discontinued Cefuroxime Axetil [Ceftin] 500 mg PO BID Discharge Medication List DULoxetine HCL [Cymbalta] 30 mg PO BID 04/12/16 [History] Pravastatin Sodium [Pravachol] 20 mg PO DAILY 04/12/16 [History] Levothyroxine Sodium 50 mcg PO DAILY 05/19/16 [History] Nitroglycerin Sl Tabs [Nitrostat] 0.4 mg PO Q5M PRN 05/19/16 [History] Lisinopril [Zestril] 5 mg PO DAILY 11/29/17 [History] Metoprolol Tartrate [Lopressor] 25 mg PO DAILY 11/29/17 [History] Aspirin EC [Ecotrin Low Dose] 81 mg PO DAILY 07/24/18 [History] Biotin 10 mg PO DAILY 07/24/18 [History] Furosemide [Lasix] 40 mg PO DAILY 07/24/18 [History] Garlic 1 tab PO BID 07/24/18 [History] Multivitamin [Multivitamins Adult Gummies] 3 tab PO DAILY 07/24/18 [History] Omeprazole [PriLOSEC] 20 mg PO AC-BID 07/24/18 [History] Ondansetron [Zofran ODT] 4 mg PO Q8H PRN 07/24/18 [History] metFORMIN HCL [Glucophage] 500 mg PO DAILY 07/24/18 [History] ARIPiprazole [Abilify] 5 mg PO DAILY 07/29/19 [History] Calcium Carbonate/Vitamin D3 [Calcium 500-Vit D3 200 Tablet] 1 tab PO DAILY 07/29/19 [History] HYDROcodone/APAP 5-325MG [[place] 5-325] 1 tab PO BID PRN 07/29/19 [History] Melatonin 10 mg PO HS PRN 07/29/19 [History] Follow up Appointment(s)/Referral(s): Jossie Farnsworth MD [STAFF PHYSICIAN] - 1 Week Heri Kaminski MD [Primary Care Provider] - 1-2 days Activity/Diet/Wound Care/Special Instructions: Wants d/c rx Activity as tolerated Diet heart healthy no need for home health care Discharge Disposition: HOME SELF-CARE
== END 2019-08-02 16:25 | disposition home health service (06) | DRG 193 ==
LOC: EC 11:40 → 4MS4W 14:33
PROVIDERS: ADMIT Internal Medicine; ATTEND Internal Medicine
DX: J18.9 Pneumonia, unspecified organism (principal); G93.41 Metabolic encephalopathy; N17.9 Acute kidney failure, unspecified; N39.0 Urinary tract infection, site not specified; I13.0 Hypertensive heart and chronic kidney disease with heart failure and stage 1 through stage 4 chronic kidney disease, or unspecified chronic kidney disease; I50.22 Chronic systolic (congestive) heart failure; I42.9 Cardiomyopathy, unspecified; Z16.21 Resistance to vancomycin; Z79.82 Long term (current) use of aspirin; Z79.84 Long term (current) use of oral hypoglycemic drugs; Z79.890 Hormone replacement therapy; Z79.899 Other long term (current) drug therapy; Z81.8 Family history of other mental and behavioral disorders; Z82.49 Family history of ischemic heart disease and other diseases of the circulatory system; Z86.73 Personal history of transient ischemic attack (TIA), and cerebral infarction without residual deficits; E11.22 Type 2 diabetes mellitus with diabetic chronic kidney disease; E78.5 Hyperlipidemia, unspecified; E86.0 Dehydration; E89.0 Postprocedural hypothyroidism; F32.9 Major depressive disorder, single episode, unspecified; F41.9 Anxiety disorder, unspecified; I25.10 Atherosclerotic heart disease of native coronary artery without angina pectoris; I25.2 Old myocardial infarction; I35.8 Other nonrheumatic aortic valve disorders; I44.0 Atrioventricular block, first degree; I49.1 Atrial premature depolarization; Z87.440 Personal history of urinary (tract) infections; Z87.891 Personal history of nicotine dependence; Z90.710 Acquired absence of both cervix and uterus; Z96.651 Presence of right artificial knee joint; N18.3 Chronic kidney disease, stage 3 (moderate); R19.7 Diarrhea, unspecified; B96.20 Unspecified Escherichia coli [E. coli] as the cause of diseases classified elsewhere; B95.2 Enterococcus as the cause of diseases classified elsewhere; B96.89 Other specified bacterial agents as the cause of diseases classified elsewhere; Z90.49 Acquired absence of other specified parts of digestive tract
CPT/HCPCS: 36415; 70450; 71045; 71046; 71250; 80053; 80306; 81001; 81003; 82140; 82272; 82550; 83605; 83690; 83735; 84443; 85025; 87040; 87077; 87086; 87186; 93005; 99285

== ENCOUNTER 2020-04-09 14:29 | Emergency (ER) | payer MEDICARE ==
[2020-04-09] MEDS ORDERED: KETOROLAC 30 MG/ML 1 ML VIAL IVP STA (14:46)
[2020-04-09] MEDS ORDERED: SODIUM CHLORIDE 0.9% 1,000 ML IV STA (14:46)
--- NOTE | 2020-04-09 14:50 | ED ---
General Adult HPI - General Stated complaint: NVD Time Seen by Provider: 04/09/20 14:30 Source: patient, RN notes reviewed, old records reviewed - History of Present Illness Initial comments: This is a 79-year-old female who presents emergency Department complaining that she has had diarrhea for 5 days and nausea vomiting for 3 days. Patient states in the midst of this she started an antibiotic for her urinary tract infection which she states is quite chronic and she's had multiple urinary tract infections this year. Patient states she's been unable to keep her antibiotics down. Patient states today he she was feeling so weak that she didn't feel as though she could come by private car so she called an ambulance. Patient denies any fever chills. Patient states she occasionally has a little suprapubic abdominal is comfort. Patient denies any chest discomfort or difficulty breathing. Patient denies any back pain. - Related Data Home Medications Medication Instructions Recorded Confirmed DULoxetine HCL [Cymbalta] 30 mg PO BID 04/12/16 04/09/20 Pravastatin Sodium [Pravachol] 20 mg PO HS 04/12/16 04/09/20 Levothyroxine Sodium 50 mcg PO DAILY 05/19/16 04/09/20 Nitroglycerin Sl Tabs [Nitrostat] 0.4 mg PO Q5M PRN 05/19/16 04/09/20 Metoprolol Tartrate [Lopressor] 25 mg PO DAILY 11/29/17 04/09/20 lisinopriL [Zestril] 5 mg PO DAILY 11/29/17 04/09/20 Aspirin EC [Ecotrin Low Dose] 81 mg PO DAILY 07/24/18 04/09/20 Biotin 10 mg PO DAILY 07/24/18 04/09/20 Garlic 1 tab PO BID 07/24/18 04/09/20 Multivitamin [Multivitamins Adult 1 tab PO DAILY 07/24/18 04/09/20 Gummies] Omeprazole [PriLOSEC] 20 mg PO AC-BID 07/24/18 04/09/20 Ondansetron [Zofran ODT] 4 mg PO Q8H PRN 07/24/18 04/09/20 metFORMIN HCL [Glucophage] 500 mg PO DAILY 07/24/18 04/09/20 ARIPiprazole [Abilify] 5 mg PO DAILY 07/29/19 04/09/20 HYDROcodone/APAP 5-325MG [[place] 1 tab PO BID PRN 07/29/19 04/09/20 5-325] Ascorbic Acid [Vitamin C] 1,000 mg PO DAILY 04/09/20 04/09/20 Calcium Carbonate [Calcium] 1,200 mg PO DAILY 04/09/20 04/09/20 Cholecalciferol [Vitamin D3 (25 4,000 unit PO DAILY 04/09/20 04/09/20 Mcg = 1000 Iu)] Chromium Picolinate 200 mcg PO DAILY 04/09/20 04/09/20 Cranberry Fruit Extract [Cranberry] 500 mg PO DAILY 04/09/20 04/09/20 Cyanocobalamin (Vitamin B-12) 1,000 mcg PO DAILY 04/09/20 04/09/20 [Vitamin B-12] Furosemide [Lasix] 40 mg PO DAILY 04/09/20 04/09/20 L.acidoph,Paracasei, B.lactis 1 cap PO DAILY 04/09/20 04/09/20 [Probiotic] Magnesium Gluconate [Magonate] 500 mg PO BID 04/09/20 04/09/20 Potassium Gluconate 99 mg PO DAILY 04/09/20 04/09/20 Super B Complex 1 tab PO DAILY 04/09/20 04/09/20 Temazepam [Restoril] 15 mg PO HS PRN 04/09/20 04/09/20 Zinc 50 mg PO DAILY 04/09/20 04/09/20 Previous Rx's Medication Instructions Recorded Sulfamethox-Tmp 800-160Mg [Bactrim 1 each PO Q12HR #14 tab 04/09/20 DS 800-160 mg] Allergies Allergy/AdvReac Type Severity Reaction Status Date / Time morphine AdvReac Chest Pain Verified 04/09/20 15:30 Review of Systems ROS Statement: Those systems with pertinent positive or pertinent negative responses have been documented in the HPI. ROS Other: All systems not noted in ROS Statement are negative. 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 Last Myocardial Infarction Date:: 2015 History of Any Multi-Drug Resistant Organisms: VRE Date of last positivie culture/infection: 07/29/19 MDRO Source:: VRE URINE Past Surgical History: Cholecystectomy, Heart Catheterization, Hysterectomy, Joint Replacement, Tonsillectomy, Tubal Ligation Additional Past Surgical History / Comment(s): Thyroidectomy d/t benign nodules, R total knee arthroplasty. Past Anesthesia/Blood Transfusion Reactions: No Reported Reaction Past Psychological History: Anxiety, Depression Additional Psychological History / Comment(s): Pt lives in senior apartments in [place]. She drives. Past Alcohol Use History: None Reported Additional Past Alcohol Use History / Comment(s): Pt started smoking at age 12(1951), smoked off and on and quit 35 years ago(1982) Past Drug Use History: None Reported - Past Family History Father Family Medical History: Myocardial Infarction (AL), Vascular Disorder Additional Family Medical History / Comment(s): Father had depression and of suicide. He had poor circulation, etoh abuse. Mother Additional Family Medical History / Comment(s): pacemaker General Exam - General Exam Comments Initial Comments: GENERAL: Patient is well-developed and well-nourished. Patient is nontoxic and well- hydrated and is in mild distress. ENT: Neck is soft and supple. No significant lymphadenopathy is noted. Oropharynx is clear. Moist mucous membranes. Neck has full range of motion without eliciting any pain. EYES: The sclera were anicteric and conjunctiva were pink and moist. Extraocular movements were intact and pupils were equal round and reactive to light. Eyelids were unremarkable. PULMONARY: Unlabored respirations. Good breath sounds bilaterally. No audible rales rhonchi or wheezing was noted. CARDIOVASCULAR: There is a regular rate and rhythm without any murmurs gallops or rubs. ABDOMEN: Soft and nontender with normal bowel sounds. SKIN: Skin is clear with no lesions or rashes and otherwise unremarkable. NEUROLOGIC: Patient is alert and oriented x3. Cranial nerves II through XII are grossly intact. Motor and sensory are also intact. Normal speech, volume and content. Symmetrical smile. MUSCULOSKELETAL: Normal extremities with adequate strength and full range of motion. LYMPHATICS: No significant lymphadenopathy is noted PSYCHIATRIC: Normal psychiatric evaluation. Course Vital Signs 04/09/20 04/09/20 04/09/20 14:52 15:00 16:00 Temperature 99.0 F Pulse Rate 66 60 68 Respiratory 18 18 18 Rate Blood Pressure 146/67 146/67 146/105 O2 Sat by Pulse 97 97 98 Oximetry 04/09/20 04/09/20 17:00 18:00 Temperature Pulse Rate 70 67 Respiratory 16 18 Rate Blood Pressure 149/76 155/83 O2 Sat by Pulse 96 98 Oximetry Medical Decision Making - Medical Decision Making Patient had no vomiting or diarrhea while in the emergency department for 3 hours. Patient is resting comfortably and does not currently feel nauseated. Patient received a gram of Rocephin. - Lab Data Result diagrams: 04/09/20 15:01 04/09/20 15:01 Lab Results 04/09/20 04/09/20 04/09/20 Range/Units 15:01 15:01 17:28 WBC 8.5 (3.8-10.6) k/uL RBC 4.05 (3.80-5.40) m/uL Hgb 11.8 (11.4-16.0) gm/dL Hct 36.0 (34.0-46.0) % MCV 88.8 (80.0-100.0) fL MCH 29.1 (25.0-35.0) pg MCHC 32.8 (31.0-37.0) g/dL RDW 12.9 (11.5-15.5) % Plt Count 299 (150-450) k/uL Neutrophils % 66 % Lymphocytes % 22 % Monocytes % 7 % Eosinophils % 2 % Basophils % 0 % Neutrophils # 5.6 (1.3-7.7) k/uL Lymphocytes # 1.9 (1.0-4.8) k/uL Monocytes # 0.6 (0-1.0) k/uL Eosinophils # 0.2 (0-0.7) k/uL Basophils # 0.0 (0-0.2) k/uL Sodium 136 L (137-145) mmol/L Potassium 3.7 (3.5-5.1) mmol/L Chloride 102 (98-107) mmol/L Carbon Dioxide 24 (22-30) mmol/L Anion Gap 10 mmol/L BUN 16 (7-17) mg/dL Creatinine 1.04 (0.52-1.04) mg/dL Est GFR (CKD-EPI)AfAm 59 (>60 ml/min/1.73 sqM) Est GFR (CKD-EPI)NonAf 51 (>60 ml/min/1.73 sqM) Glucose 101 H (74-99) mg/dL Calcium 8.8 (8.4-10.2) mg/dL Total Bilirubin 0.4 (0.2-1.3) mg/dL AST 23 (14-36) U/L ALT 15 (4-34) U/L Alkaline Phosphatase 125 (38-126) U/L Total Protein 6.6 (6.3-8.2) g/dL Albumin 3.9 (3.5-5.0) g/dL Amylase 51 (30-110) U/L Lipase 96 (23-300) U/L Urine Color Yellow Urine Appearance Cloudy H (Clear) Urine pH 5.5 (5.0-8.0) Ur Specific [place] 1.012 (1.001-1.035) Urine Protein Trace H (Negative) Urine Glucose (UA) Negative (Negative) Urine Ketones Negative (Negative) Urine Blood Small H (Negative) Urine Nitrite Negative (Negative) Urine Bilirubin Negative (Negative) Urine Urobilinogen <2.0 (<2.0) mg/dL Ur Leukocyte Esterase Large H (Negative) Urine RBC 5 (0-5) /hpf Urine WBC >182 H (0-5) /hpf Urine WBC Clumps Many H (None) /hpf Ur Squamous Epith Cells 1 (0-4) /hpf Hyaline Casts 2 (0-2) /lpf Urine Mucus Rare H (None) /hpf Disposition Clinical Impression: Urinary tract infection, Acute vomiting, Diarrhea Disposition: HOME SELF-CARE Condition: Good Instructions (If sedation given, give patient instructions): Acute Nausea and Vomiting in Children (ED), Acute Diarrhea (ED), Urinary Tract Infection in Women (ED) Prescriptions: Sulfamethox-Tmp 800-160Mg [Bactrim DS 800-160 mg] 1 each PO Q12HR #14 tab Is patient prescribed a controlled substance at d/c from ED?: No Referrals: Heri Kaminski MD [Primary Care Provider] - 1-2 days Time of Disposition: 18:30
[2020-04-09 15:06] VITALS: RESP 18
[2020-04-09 15:41] LABS: Basophils % (A) 0 %; Eosinophils # (A) 0.2 k/uL (0-0.7); Eosinophils % (A) 2 %; HGB 11.8 gm/dL (11.4-16.0); Lymphocytes # (A) 1.9 k/uL (1.0-4.8); Lymphocytes % (A) 22 %; MCH 29.1 pg (25.0-35.0); MCHC 32.8 g/dL (31.0-37.0); MCV 88.8 fL (80.0-100.0); Mean Platelet Volume 7.7; Monocytes # (A) 0.6 k/uL (0-1.0); Monocytes % (A) 7 %; Neutrophils # (A) 5.6 k/uL (1.3-7.7); Neutrophils % (A) 66 %; Platelet Count 299 k/uL (150-450); RBC 4.05 m/uL (3.80-5.40); RDW 12.9 % (11.5-15.5); WBC 8.5 k/uL (3.8-10.6)
[2020-04-09 15:48] LABS: Albumin 3.9 g/dL (3.5-5.0); Calcium 8.8 mg/dL (8.4-10.2); Potassium 3.7 mmol/L (3.5-5.1); Total Bilirubin 0.4 mg/dL (0.2-1.3); Total Protein 6.6 g/dL (6.3-8.2)
[2020-04-09 17:43] LABS: Appearance,Urine Cloudy (Clear); Bilirubin,Urine Negative (Negative); Blood,Urine Small (Negative); Color,Urine Yellow; Glucose,Urine (UA) Negative (Negative); Hyaline Casts,Urine 2 /lpf (0-2); Ketones,Urine Negative (Negative); Leukocyte Esterase,Urine Large (Negative); Mucus,Urine Rare /hpf; Nitrite,Urine Negative (Negative); PH, Urine 5.5 (5.0-8.0); Protein,Urine Trace (Negative); RBC,Urine 5 /hpf (0-5); Specific Gravity,Urine 1.012 (1.001-1.035); Squamous Epithelial Cell,Urine 1 /hpf (0-4); Urobilinogen,Urine <2.0 mg/dL (<2.0); WBC,Urine >182 /hpf (0-5)
[2020-04-09] MEDS ORDERED: cefTRIAXone IN SWFI 1,000 MG/10 ML SYRINGE IVP STA (18:25)
[2020-04-09] MEDS ORDERED: ONDANSETRON 4 MG ODT STARTER PACK 2 TAB BTL PO STA (18:31)
[2020-04-09 19:08] VITALS: BP 140/80; PULSE 64; TEMP 98.7
== END 2020-04-09 19:06 | disposition home or self-care (01) ==
LOC: EC 14:29
DX: N39.0 Urinary tract infection, site not specified (principal); R11.10 Vomiting, unspecified; R19.7 Diarrhea, unspecified; I25.10 Atherosclerotic heart disease of native coronary artery without angina pectoris; I11.0 Hypertensive heart disease with heart failure; I50.9 Heart failure, unspecified; I25.2 Old myocardial infarction; K21.9 Gastro-esophageal reflux disease without esophagitis; F41.9 Anxiety disorder, unspecified; F32.9 Major depressive disorder, single episode, unspecified; Z79.890 Hormone replacement therapy; Z79.82 Long term (current) use of aspirin; Z79.899 Other long term (current) drug therapy; Z79.84 Long term (current) use of oral hypoglycemic drugs; Z88.5 Allergy status to narcotic agent; Z87.891 Personal history of nicotine dependence; Z86.73 Personal history of transient ischemic attack (TIA), and cerebral infarction without residual deficits
CPT/HCPCS: 99285; 96374; 96375; 96361; 36415; 80053; 82150; 83690; 85025; 81001; 87086; J0696; J1885; S0119

== ENCOUNTER → 2020-05-18 | Outpatient (CLI) | payer MEDICARE ==
--- NOTE | 2020-05-19 08:26 | US ---
EXAMINATION TYPE: US pelvis complete transvag DATE OF EXAM: 05/18/2020 COMPARISON: NONE CLINICAL HISTORY: N83.0 OVARIAN CYST. TECHNIQUE: Transvaginal (TV) and Transabdominal (TA) . Transabdominal sonographic images of the pel vis were acquired. Transvaginal sonographic images were medically necessary to better assess the fol lowing anatomy: Ovary EXAM MEASUREMENTS: Uterus: Surgically absent cm Endometrial Stripe: Surgically absent cm Right Ovary: ? seen in right adnexa 6.0 x 5.0 x 5.4 cm Left Ovary: Not seen cm 1. Uterus: Surgically absent 2. Endometrium: Surgically absent 3. Right Ovary: Lobulated heterogenous enlarged 4. Left Ovary: Obscured by overlying bowel gas 5. Bilateral Adnexa: abnormal right adnexa. 6. Posterior cul-de-sac: wnl IMPRESSION: Poor visualization of left ovary, cannot exclude adnexal mass at this level. Suspicion fo r solid mass right ovary or adnexa. Follow-up advised to rule out neoplasm. Consider pelvic MRI or CT with and without contrast to further evaluate.
== END | disposition home or self-care (01) ==
LOC: RADUSWWP 16:04
PROVIDERS: ATTEND Internal Medicine
DX: N83.209 Unspecified ovarian cyst, unspecified side (principal)
CPT/HCPCS: 76830; 76856

== ENCOUNTER → 2020-05-26 | Outpatient (CLI) | payer MEDICARE ==
[2020-05-26 15:20] VITALS: BP 121/72; PULSE 64; RESP 20
--- NOTE | 2020-05-26 18:16 | P.HPOB ---
History of Present Illness H&P Date: 05/26/20 Chief Complaint: The patient is here for her routine gynecologic exam. This is a 79-year-old with an LMP of approximately 1989. The patient is status post vaginal hysterectomy for benign reasons. The patient is here to establish with this office. She states it has been about 2 years since her last pelvic exam. She states this about 1 month ago she started having a clear vaginal discharge which felt slimy. There was no color and no blood. She was not sure if this came from the rectum or vagina. The discharge resolved about 5 days ago. She denies any genital pruritus or vaginal odor. The patient states she was in [place] in January of this year. She had some type of MRI in [place] for suspected kidney stones. She was told that the MRI showed some type of a growth on her right ovary. Her PCP in [place] ordered a pelvic ultrasound which was done on 05/18/2020. The pelvic ultrasound showed a solid right adnexal mass measuring approximately 6.0 x 5.0 x 5.4 cm[address] MRI or CT scan was recommended. The patient states that Dr. Kaminski has ordered an MRI and she is being referred to Dr. Vickie Dinh for further evaluation. Review of Systems Her weight has been stable. She denies respiratory, cardiac and G.I. problems. She denies maltreatment or problems with falling. : She states she has gotten frequent urinary tract infections recently. Clear vaginal discharge last month as in the HPI. 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 Patient denies NI DDM/states she has hypoglycemia, chronic R knee pain, chronic constipation, past bilateral arm/hand tremors. IBS. Osteopenia. PAST ASSOCIATE PROFESSOR OF MEDICINE HISTORY: She has no history of STDs. Last Myocardial Infarction Date:: 2015 History of Any Multi-Drug Resistant Organisms: VRE Date of last positivie culture/infection: 07/29/19 MDRO Source:: VRE URINE Past Surgical History: Breast Surgery, Cholecystectomy, Heart Catheterization, Hysterectomy, Joint Replacement, Orthopedic Surgery, Tonsillectomy, Tubal Ligation Additional Past Surgical History / Comment(s): Thyroidectomy d/t benign nodules, R total knee arthroplasty. Vaginal hysterectomy approximately 2004. Parathyroid gland removed. Breast biopsies. Colonoscopy approximately 2011 Past Anesthesia/Blood Transfusion Reactions: No Reported Reaction Past Psychological History: Anxiety, Depression Additional Psychological History / Comment(s): Pt lives in senior apartments in [place]. She drives. Smoking Status: Former smoker Past Alcohol Use History: None Reported Additional Past Alcohol Use History / Comment(s): Pt started smoking at age 12(1951), smoked off and on and quit 1982. Past Drug Use History: Marijuana Additional History: She is a and is not seeing anybody at this time and is not sexually active. She is retired. - Past Family History Father Family Medical History: Myocardial Infarction (MS), Vascular Disorder Additional Family Medical History / Comment(s): Father had depression and of suicide. He had poor circulation, etoh abuse. Paternal aunt had breast cancer. Mother Family Medical History: Congestive Heart Failure (CHF) Additional Family Medical History / Comment(s): pacemaker Medications and Allergies Home Medications Medication Instructions Recorded Confirmed Type DULoxetine HCL [Cymbalta] 30 mg PO BID 04/12/16 05/26/20 History Pravastatin Sodium [Pravachol] 20 mg PO HS 04/12/16 05/26/20 History Levothyroxine Sodium 50 mcg PO DAILY 05/19/16 05/26/20 History Metoprolol Tartrate [Lopressor] 25 mg PO DAILY 11/29/17 05/26/20 History lisinopriL [Zestril] 5 mg PO DAILY 11/29/17 05/26/20 History Aspirin EC [Ecotrin Low Dose] 81 mg PO DAILY 07/24/18 05/26/20 History Multivitamin [Multivitamins Adult 1 tab PO DAILY 07/24/18 05/26/20 History Gummies] Omeprazole [PriLOSEC] 20 mg PO AC-BID 07/24/18 05/26/20 History Ondansetron [Zofran ODT] 4 mg PO Q8H PRN 07/24/18 05/26/20 History metFORMIN HCL [Glucophage] 500 mg PO DAILY 07/24/18 05/26/20 History ARIPiprazole [Abilify] 5 mg PO DAILY 07/29/19 05/26/20 History HYDROcodone/APAP 5-325MG [Walters 1 tab PO BID PRN 07/29/19 05/26/20 History 5-325] Cyanocobalamin (Vitamin B-12) 1,000 mcg PO DAILY 04/09/20 05/26/20 History [Vitamin B-12] Furosemide [Lasix] 40 mg PO DAILY 04/09/20 05/26/20 History L.acidoph,Paracasei, B.lactis 1 cap PO DAILY 04/09/20 05/26/20 History [Probiotic] Cider Vinegar [Apple Cider Vinegar] 300 mg PO DAILY 05/26/20 05/26/20 History Ferrous Sulfate [Feosol] 325 mg PO DAILY 05/26/20 05/26/20 History Stool Softener 1 tab PO TID 05/26/20 05/26/20 History Tumeric 500 mg PO BID 05/26/20 05/26/20 History Vitamin E 1,000 unit PO DAILY 05/26/20 05/26/20 History Allergies Allergy/AdvReac Type Severity Reaction Status Date / Time morphine AdvReac Chest Pain Verified 05/26/20 15:10 Exam Vital Signs Pulse Resp BP Pulse Ox 05/26/20 15:10 64 20 121/72 100 Intake and Output 05/26/20 05/26/20 05/26/20 06:59 14:59 22:59 Other: Weight 74.389 kg Height 5 feet 2-1/2 inches, weight 164 pounds, BMI 29.5. This is a well-developed well-nourished white female who is alert and oriented times 3 in no acute distress. Her response time is somewhat delayed but she seems to be able to answer fairly accurately. She seems a bit uncertain about past dates from years ago. HEENT: Within normal limits. NECK: Supple without mass or thyromegaly. CHEST AND LUNGS: Clear to auscultation. HEART: Regular rate and rhythm. BREASTS: Are without mass or discharge. There is bilateral nipple inversion. She states her left nipple was like this since and the right nipple is been this way for several years. AXILLARY EXAM: Negative for adenopathy. BACK: Negative for CVA tenderness. ABDOMEN: Soft, nontender, without palpable masses. PELVIC EXAM: External genitalia appears normal with mild to moderate atrophy. Vagina appears normal with mild to moderate atrophy. There is a small amount of clear discharge which is similar to the discharge seen with ovulatory cervical mucus. There is no color or odor. There is no evidence of prolapse. Bimanual examination does reveal a left periurethral mass measuring approximately 2.5x 2.5 cm and is solid and nontender. It is fairly smooth and nonmobile. There is no mucosal abnormality at this area by inspection, however a protrusion into the vagina is seen in this area approximately 4 cm from the introitus just left of the midline near the urethra. Vaginal cuff is well supported. There is a palpable right pelvic mass measuring approximately 6 x 5 cm and is firm and minimally tender. This also seems fairly fixed and not mobile. No palpable inguinal adenopathy was noted. RECTAL EXAM: Rectovaginal exam is negative for rectal mass or tenderness and is negative for occult blood. The above right pelvic masses palpable with rectovaginal exam. EXTREMITIES: Nontender. IMPRESSION: 1. 79-year-old menopausal female status post vaginal hysterectomy for benign reasons. 2. Solid right pelvic mass measuring approximately 6 cm. 3. Periurethral solid mass measuring impression a 2.5 x 2.5 cm which is just left of the midline. 4. Differential diagnosis will include solid ovarian neoplasm which is suspicious for malignancy, bladder malignancy, periurethral neoplasm, less likely a benign cystic teratoma/dermoid, other ovarian neoplasm, GI tumor, or some type of metastatic disease. 5. History of clear vaginal discharge which the patient states has resolved. Small amount of clear discharge was noted on exam today. PLAN / Recommendations: 1. Pap smears have been discontinued. 2. Self breast awareness was discussed with the patient. 3. Affirm testing for Chari, Gardnerella, and Trichomonas was obtained from the vagina. 4. The patient states she is being scheduled for an MRI by her PCP as follow-up to the pelvic ultrasound which showed a solid right pelvic mass. She states she is also being referred to Dr. Dinh, the washing machine installer, for further evaluation of the pelvic mass. 5. I agree with the further evaluation with MRI. If this pelvic mass seems to be related to the bladder or urethra, consider referral to a urologist. If it is felt most likely to represent an ovarian mass, consider referral to a gynecologic oncologist.
--- NOTE | 2020-05-27 12:53 | P.PN ---
Progress Note - Text Progress Note Date: 05/27/20 OUTPATIENT FOLLOW-UP NOTE TEST(S)/RESULTS: Affirm testing for omar, Gardnerella, and Trichomonas done on 05/26/2020 was negative for all. METHOD OF NOTIFICATION: The patient was notified by phone. PATIENT COMMENTS: DIAGNOSIS: Negative affirm testing for omar, Gardnerella, and Trichomonas. Suspicious pelvic masses by ultrasound and exam. DISCUSSION: I have reviewed her pelvic ultrasound done on 05/18/2020. There is a suspicious solid mass in the right adnexal area. There also seems to be an abnormal mass in the left adnexal area. The patient states she is scheduled for an MRI on 06/18/2020. We will call MRI to see if we can move this up sooner. I have also recommended CA-125 testing and she will come in to have this drawn tomorrow on 05/28/2020. The order slip for this blood test was left at the front clerk at the [facility]. I will probably recommend referral to a MAGNETIC TAPE COMPOSER OPERATOR oncologist for this is suspicious pelvic mass. PLAN: As above.
== END | disposition home or self-care (01) ==
LOC: WWCWWP 15:03
PROVIDERS: ATTEND Obstetrics & Gynecology
DX: Z53.9 Procedure and treatment not carried out, unspecified reason (principal)

== ENCOUNTER → 2020-05-29 | Outpatient (CLI) | payer MEDICARE | END | disposition home or self-care (01) | LOC: LABWHC1 14:47 | PROVIDERS: ATTEND Obstetrics & Gynecology | DX: R19.09 Other intra-abdominal and pelvic swelling, mass and lump (principal) | CPT/HCPCS: 36415; 86304 ==

== ENCOUNTER → 2020-06-10 | Outpatient (CLI) | payer MEDICARE ==
--- NOTE | 2020-06-10 08:16 | MR ---
EXAMINATION TYPE: MR pelvis wo/w con DATE OF EXAM: 06/10/2020 COMPARISON: Pelvic ultrasound 05/18/2020 HISTORY: 79-year-old female Abnormal US, mass. R93.8, R19.09 Technique: Multiplanar, multisequence images of the pelvis were obtained before and after administrat ion of 7.5 mL intravenous Gadavist gadolinium contrast. FINDINGS: There is a large heterogeneously enhancing mass situated within the pelvis. The exact epicenter is di fficult to determine. Uterus is reported to be surgically absent on the patient's 05/18/2020 ultrasoun d. The mass appears to become contiguous with the right lateral wall of the distal sigmoid with broad-ba sed abutment of at least 6 cm. The bulk of the mass is located near an area of internal cystic change or necrosis. Overall, expands up to 14.9 cm craniocaudal extending down into the right adnexa, region of the vagin al cuff, and down the vaginal canal to the level of the perineum. At the bulkiest portion of the mass, AP dimension of 8.9 cm and 6.2 cm wide. At the level of the vaginal canal, the region of enhancement measures up to 3.6 cm AP and 3.8 cm wide . There may also be abnormal soft tissue extension along the right common iliac chain near the superior margin of the mass. Neither ovary is clearly visualized. IMPRESSION: 1. Bulky heterogeneously enhancing mass within the pelvis. The exact epicenter is difficult to determ ine. There is broad-based abutment/involvement of the right lateral wall of the distal sigmoid colon and caudal extension by nearly 15 cm down to the vaginal cuff and along the vaginal canal to the briana neum as detailed above. Cervical, vaginal, ovarian, and colonic origin to the neoplasm are all possi bilities. Recommend a speculum exam with possible biopsy to obtain a histologic diagnosis. 2. The patient's 05/18/2020 ultrasound reports that the uterus is surgically absent. Neither ovary is clearly identified on the present exam.
== END | disposition home or self-care (01) ==
LOC: RADMRIMAIN 06:06
PROVIDERS: ATTEND Internal Medicine
DX: R19.09 Other intra-abdominal and pelvic swelling, mass and lump (principal); R93.89 Abnormal findings on diagnostic imaging of other specified body structures
CPT/HCPCS: 72197; A9585

== ENCOUNTER → 2020-06-12 | Outpatient (CLI) | payer MEDICARE ==
--- NOTE | 2020-06-12 17:04 | CT ---
EXAMINATION TYPE: CT abdomen pelvis wo con DATE OF EXAM: 06/12/2020 COMPARISON: Ultrasound 05/18/2020, CT chest 07/31/2019 HISTORY: Pelvic mass CT DLP: 497.4 mGycm Automated exposure control for dose reduction was used. TECHNIQUE: Helical acquisition of images from the lung bases through the pelvis. FINDINGS: Lack of intravenous contrast could compromise sensitivity. LUNG BASES: There is a new pulmonary nodule on axial image #9 and 10 at the level of the left costoph renic angle measuring approximately 9 mm. No pleural effusion AORTA: No significant abnormality is appreciated. LIVER/GB: Low dense lesions are scattered within the liver, at least 10-15 masses are present, largest in the i nferior right lobe measures 9 cm, laterally within the lateral segment of the left lobe lesion measur es 4.9 cm adjacent to an additional lesion measuring 4.1 cm, inferior the right lobe 2.8 cm PANCREAS: No significant abnormality is seen. SPLEEN: No significant abnormality is seen. ADRENALS: No significant abnormality is seen. KIDNEYS: There is right-sided hydronephrosis as well as hydroureter. REPRODUCTIVE ORGANS: Lobulated soft tissue mass present within the pelvis corresponds to the ultraso und abnormality and measures approximately 7.5 cm in AP dimension by 8.6 cm in cephalad to caudal dim ension by 6.7 cm in transverse dimension, suggestion of insinuation with the sigmoid colon, distal ri ght ureter. Left kidney shows an exophytic low dense focus at the lower pole likely representing cyst measuring 3.8 cm URINARY BLADDER: No significant abnormality is seen. BOWEL: 1 there may be involvement of the tumor mass in the pelvis, adherent or infiltrating at the s igmoid colon level.. FREE AIR: No Free Air is visible. ASCITES: None visible. PELVIC ADENOPATHY: None visualized. RETROPERITONEAL ADENOPATHY: Likely present, axial image #41 between the aorta and inferior vena cava near the aortic bifurcation OSSEOUS STRUCTURES: No significant abnormality is seen. 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
== END | disposition home or self-care (01) ==
LOC: RADCTMAIN 14:28
PROVIDERS: ATTEND Obstetrics & Gynecology
DX: R19.09 Other intra-abdominal and pelvic swelling, mass and lump (principal); Z88.5 Allergy status to narcotic agent
CPT/HCPCS: 82565; 84520; 74176; 36415; Q9967